=== PATIENT | male | born 1965 | race African-American/Black ===

== ENCOUNTER 2016-09-08 14:22 | Inpatient (IN) | payer SELFPAY ==
[2016-09-08] VITALS (11 sets, daily range): BP systolic 156–206; BP diastolic 77–122; PULSE 54–98; RESP 16–18; TEMP 98; O2SAT 96–100
[~2016-09-08] VITALS: Ht 180.3 cm; Wt 98.0 kg
--- NOTE | 2016-09-08 15:25 | PD ---
HPI Chief Complaint: Neuro Symptoms/ Deficits Time Seen by Provider: 15:12 Travel History International Travel<30 days: No Contact w/Intl Traveler<30days: No Traveled to known affect area: No History of Present Illness HPI 50yo M with PMH of HTN noncompliant with medication here with c/o headache and feeling unsteady with his gait for 4 days. Pt states he has had similar headache before when his blood pressure is high. Headache is bilateral, frontal and intermittent. Took acetaminophen yesterday. No photophobia. Friend states he has been more forgetful. Denies any fever, visual changes, chest pain, sob, n/v, abdominal pain, focal weakness or numbness. Pt does not remember what blood pressure medication he is suppose to be on. Denies any history of CVA. PFSH Social History Tobacco Use: No Allergies-Medications (Allergen,Severity, Reaction): Coded Allergies: No Known Allergies (Unverified , 09/08/16) Reported Meds & Prescriptions Reported Meds & Active Scripts Active No Active Prescriptions or Reported Medications Review of Systems Except as stated in HPI: all other systems reviewed are Neg Physical Exam Narrative GENERAL: 50yo M SKIN: Focused skin assessment warm/dry. HEAD: Atraumatic. Normocephalic. EYES: Pupils equal and round. No scleral icterus. No injection or drainage. ENT: No nasal bleeding or discharge. Mucous membranes pink and moist. NECK: Trachea midline. No JVD. CARDIOVASCULAR: Regular rate and rhythm. No murmur appreciated. RESPIRATORY: No accessory muscle use. Clear to auscultation. Breath sounds equal bilaterally. GASTROINTESTINAL: Abdomen soft, non-tender, nondistended. Hepatic and splenic margins not palpable. MUSCULOSKELETAL: No obvious deformities. No clubbing. No cyanosis. No edema. NEUROLOGICAL: Awake and alert. No obvious cranial nerve deficits. Motor grossly within normal limits. Normal speech. Gait is broad. PSYCHIATRIC: Appropriate mood and affect; insight and judgment normal. Data Data Last Documented VS Vital Signs Date Time Temp Pulse Resp B/P Pulse Ox O2 Delivery O2 Flow Rate FiO2 09/08/16 16:45 61 174/99 09/08/16 15:42 18 98 Room Air 09/08/16 14:[address] Brain W/O Iv Contrast(Rout) (09/08/16 ) Complete Blood Count With Diff (09/08/16 15:21) Basic Metabolic Panel (Bmp) (09/08/16 15:21) Prothrombin Time / Inr (Pt) (09/08/16 15:21) Act Partial Throm Time (Ptt) (09/08/16 15:21) Hydralazine Inj (Apresoline Inj) (09/08/16 15:30) Consult Neurosurgery (09/08/16 ) (Hub Use Only)Inp Phy Cons/Ref (09/08/16 ) Admit Order (Ed Use Only) (09/08/16 19:05) Labs Laboratory Tests Test 09/08/16 09/08/16 16:50 18:45 White Blood Count 6.8 TH/MM3 Red Blood Count 5.31 MIL/MM3 Hemoglobin 14.6 GM/DL Hematocrit 46.2 % Mean Corpuscular Volume 87.0 FL Mean Corpuscular Hemoglobin 27.5 PG Mean Corpuscular Hemoglobin 31.6 % Concent Red Cell Distribution Width 14.6 % Platelet Count 273 TH/MM3 Mean Platelet Volume 8.9 FL Neutrophils (%) (Auto) 60.6 % Lymphocytes (%) (Auto) 31.6 % Monocytes (%) (Auto) 6.1 % Eosinophils (%) (Auto) 1.3 % Basophils (%) (Auto) 0.4 % Neutrophils # (Auto) 4.1 TH/MM3 Lymphocytes # (Auto) 2.2 TH/MM3 Monocytes # (Auto) 0.4 TH/MM3 Eosinophils # (Auto) 0.1 TH/MM3 Basophils # (Auto) 0.0 TH/MM3 CBC Comment DIFF FINAL Differential Comment Prothrombin Time 10.7 SEC Prothromb Time International 1.0 RATIO Ratio Activated Partial 28.9 SEC Thromboplast Time Sodium Level 140 MEQ/L Potassium Level 3.8 MEQ/L Chloride Level 105 MEQ/L Carbon Dioxide Level 25.5 MEQ/L Anion Gap 10 MEQ/L Blood Urea Nitrogen 15 MG/DL Creatinine 1.22 MG/DL Estimat Glomerular Filtration 76 ML/MIN Rate Random Glucose 101 MG/DL Calcium Level 9.7 MG/DL [facility] Medical Decision Making Medical Screen Exam Complete: Yes Emergency Medical Condition: Yes Differential Diagnosis CVA vs. hypertensive emergency vs. ICH vs. headache related to hypertension vs. tension headache Narrative Course 50yo M with new onset unsteady gait for 4 days. Also with mild frontal headache. Friend states he has been more forgetful. Pt was given hydralazine 10 mg IV which improved blood pressure and pt was reevaluated at bedside and headache did improve. Labs reviewed, no leukocytosis. CT brain showed large well defined hyperdense mass involving the third ventricle measuring 2.3 x 1.9cm. This has a characteristic appearance of colloid cyst. I discussed with Dr. Germain who recommends admitting to catering administrative assistant and consulting him. Labs reviewed, no leukocytosis. Discussed with Dr. Packer and accepted to his service. Critical Care Narrative Aggregate critical care time was 50 minutes. Time to perform other separately billable procedures was not included in the critical care time. My time did not include minutes spent treating any other patients simultaneously or on activities that did not directly contribute to the patient's treatment. The services I provided to this patient were to treat and/or prevent clinically significant deterioration that could result in: cardiovascular collapse or . I provided critical care services requiring my management, as noted below: Chart data review, documentation time, medication orders and management, vital sign assessments/reviewing monitor data, ordering and reviewing lab tests, ordering and interpreting/reviewing x-rays and diagnostic studies, care of the patient and discussion of the patient with the admitting physicians. Diagnosis Primary Impression: Brain mass Admitting Information Admitting Physician Requests: Admit Scripts No Active Prescriptions or Reported Meds Barbara Velasquez DO Sep 08, 2016 15:25
[2016-09-08] MEDS ORDERED: hydrALAZINE HCL 20 MG/ML VIAL IV PUSH ONE (15:30)
[2016-09-08 17:24] LABS: AUTOMATED NEUTROPHIL # 4.1 TH/MM3 (1.8-7.7); BASOPHIL % 0.4 % (0.0-2.0); EOSINOPHIL # 0.1 TH/MM3 (0-0.4); EOSINOPHIL % 1.3 % (0.0-4.0); HEMATOCRIT 46.2 % (39.0-51.0); HEMO FLAGS DIFF FINAL; LYMPH % 31.6 % (9.0-44.0); LYMPHOCYTE # 2.2 TH/MM3 (1.0-4.8); MEAN CORPUSCULAR HEMOGLOBIN 27.5 PG (27.0-34.0); MEAN CORPUSCULAR HGB CONC 31.6 % (32.0-36.0); MONO % 6.1 % (0.0-8.0); NEUT % 60.6 % (16.0-70.0); PLATELET COUNT 273 TH/MM3 (150-450); RED BLOOD COUNT 5.31 MIL/MM3 (4.50-5.90); RED CELL DISTRIBUTION WIDTH 14.6 % (11.6-17.2); WHITE BLOOD COUNT 6.8 TH/MM3 (4.0-11.0)
[2016-09-08 17:29] LABS: APTT (PATIENT) 28.9 SEC (24.3-30.1); PROTHROMBIN TIME - PATIENT 10.7 SEC (9.8-11.6)
--- NOTE | 2016-09-08 17:37 | RADRPT ---
EXAM DATE/TIME: 09/08/2016 17:13 [place] COMPARISON: No previous studies available for comparison. INDICATIONS : Patient with headache, unsteady gait. RADIATION DOSE: 56.35 CTDIvol (mGy) MEDICAL HISTORY : Hypertension. SURGICAL HISTORY : None. ENCOUNTER: Initial ACUITY: 4 - 6 days PAIN SCALE: 0/10 LOCATION: cranial TECHNIQUE: Multiple contiguous axial images were obtained of the head. Using automated exposure control and adj ustment of the mA and/or kV according to patient size, radiation dose was kept as low as reasonably a chievable to obtain optimal diagnostic quality images. DICOM format image data is available electro nically for review and comparison. FINDINGS: CEREBRUM: The lateral ventricles are diffusely prominent bilaterally. There is a well-defined hyperdense mass a t the level of the third ventricle measuring 2.3 x 1.9 cm. This appears to be causing obstruction to the lateral ventricles. No extra-axial fluid collections are seen. No acute intraparenchymal hemorrha ge. No acute infarction is seen. There is evidence of transependymal edema in the white matter adjace nt to both lateral ventricles. There is effacement of the sulci along the cerebral vertex. POSTERIOR FOSSA: The cerebellum and brainstem are intact. The 4th ventricle is midline. The cerebellopontine angle i s unremarkable. EXTRACRANIAL: The visualized portion of the orbits is intact. SKULL: The calvaria is intact. No evidence of skull fracture. CONCLUSION: 1. Large well-defined hyperdense mass involving the third ventricle measuring 2.3 x 1.9 cm. This has a characteristic appearance of a colloid cyst. This is causing hydronephrosis and obstruction to the lateral ventricles bilaterally. 2. There is transependymal edema bilaterally with effacement of the sulci along both cerebral hemisph eres suggesting cerebral edema.. Roger Pratt MD on September 08, 2016 at 17:30 Board Certified Radiologist. This report was verified electronically.
[2016-09-08 19:24] LABS: BICARBONATE 25.5 MEQ/L (21.0-32.0); POTASSIUM 3.8 MEQ/L (3.5-5.1)
[2016-09-08] MEDS ORDERED: MORPHINE SULFATE 4 MG/ML INJ IV PRN (19:30)
[2016-09-08] MEDS ORDERED: LACTULOSE SYRUP 20 GM/30 ML CUP PO PRN (19:30)
[2016-09-08] MEDS ORDERED: ONDANSETRON HCL 4 MG/2 ML VIAL IV PRN (19:30)
[2016-09-08] MEDS ORDERED: MISCELLANEOUS NURSING INFORMATION XX SCH (19:30)
[2016-09-08] MEDS ORDERED: CHLORHEXIDINE GLUCONATE 2 % 1 PACK (2 CLOTHS) TOP PRN (19:30)
[2016-09-08] MEDS ORDERED: ACETAMINOPHEN/HYDROcodone 325 MG/5 MG TAB PO PRN (19:30)
[2016-09-08] MEDS ORDERED: NITROGLYCERIN 2% OINT 1 GM PACKET TOPICAL PRN (19:30)
[2016-09-08] MEDS ORDERED: MULTIVITAMIN INJ 10 ML, THIAMINE INJ 100 MG, FOLIC ACID INJ 1 MG in SODIUM CHLORID 0.9%... IV ONE (19:30)
[2016-09-08] MEDS ORDERED: RESP: ALBUTEROL 2.5 MG/3 ML NEB (PRN) INH (19:30)
[2016-09-08] MEDS ORDERED: BISACODYL 10 MG SUPP RECTAL PRN (19:30)
[2016-09-08] MEDS ORDERED: MAGNESIUM HYDROXIDE SUSP 30 ML CUP PO PRN (19:30)
[2016-09-08] MEDS ORDERED: SENNOSIDES 8.6 MG TAB PO PRN (19:30)
[2016-09-08] MEDS ORDERED: SODIUM CHLORIDE 0.9% FLUSH 10 ML FLUSH IV FLUSH PRN (19:30)
--- NOTE | 2016-09-08 19:40 | HHI.HP ---
[facility] Service Critical Care Medicine Primary Care Physician No Primary Care Physician Admission Diagnosis Intracranial mass Diagnosis: (1) Brain mass Diagnosis: Principal (2) Hypertension Diagnosis: Principal (3) Tobacco abuse Diagnosis: Principal (4) Alcohol use Diagnosis: Principal Chief Complaint: Headache, gait and balance disorder Travel History International Travel<30 Days: No Contact w/Intl Traveler <30 Da: No Traveled to Known Affected Are: No History of Present Illness This is a 50-year-old [place] male. Date of admission 09/08/2016. Past include hypertension alcohol use and tobacco use. Patient presents to [place] ED with a 3-4 day history of headaches described as bilateral frontal 6 out of 10 described as throbbing. Not associated with photophobia or vision changes. Patient is taking Tylenol without relief. He's also been having gait and balance disorder not favoring either side. Denies any falls, striking his head or syncope. When patient. [place] of soon have an elevated systolic blood pressure 204. CT head revealed 2.3 x 1.9 cm hyperdense mass the third ventricle obstructing lateral ventricles. There is also transependymal edema adjacent to both ventricles. Dr. Germain/neurosurgery was notified and recommended ICU admission with consultation. We are asked to admit. At the present time, patient is currently hemodynamically stable. Besides gait imbalance disorder which was not specifically evaluated no cranial nerve, strength or sensation deficits noted. Review of Systems Constitutional: DENIES: Fatigue, Fever, Weight gain, Weight loss Endocrine: DENIES: Polydipsia Eyes: DENIES: Blurred vision, Double Vision Ears, nose, mouth, throat: DENIES: Tinnitus, Hearing loss, Running Nose Respiratory: DENIES: Apneas Cardiovascular: DENIES: Chest pain Gastrointestinal: DENIES: Abdominal pain Genitourinary: DENIES: Urgency, Dysuria Musculoskeletal: DENIES: Joint pain Hematologic/lymphatic: DENIES: Bruising Immunologic/allergic: DENIES: Eczema Neurologic: COMPLAINS OF: Abnormal gait, Headache, DENIES: Localized weakness , Paresthesias, Seizures, Speech Problems, Tremor, Poor Balance Psychiatric: DENIES: Anxiety, Confusion Past Family Social History Allergies: Coded Allergies: No Known Allergies (Unverified , 09/08/16) Past Medical History Hypertension Past Surgical History None Reported Medications None Active Ordered Medications Reviewed in EMR Family History Father at young age unknown cause of . Mother 3 years ago of unknown cause. Social History Consumes one 12 pack of beer every week. Smokes 2-3 packs of cigarettes every week. Denies illicit drug use. Physical Exam Vital Signs Vital Signs Date Time Temp Pulse Resp B/P Pulse Ox O2 Delivery O2 Flow Rate FiO2 09/08/16 16:45 61 174/99 09/08/16 16:15 189/103 09/08/16 15:45 173/106 09/08/16 15:42 54 18 182/115 98 Room Air 09/08/16 14:23 98.0 61 16 206/113 98 Room Air Physical Exam GENERAL: 50-year-old AA male, the resting in bed in no acute distress SKIN: Warm and dry. No rash HEAD: Atraumatic. Normocephalic. EYES: Pupils equal and round about 3-4 mm bilaterally and reactive. No scleral icterus. No injection or drainage. ENT: No nasal bleeding or discharge. Mucous membranes pink and moist. NECK: Trachea midline. No JVD. CARDIOVASCULAR: Rate a cardiac, RRR. S1, S2 no S4. Without murmur RESPIRATORY: Clear to auscultation. Breath sounds equal bilaterally. GASTROINTESTINAL: Abdomen soft, non-tender, nondistended. Hepatic and splenic margins not palpable. MUSCULOSKELETAL: Extremities without noted in peripheral edema. No obvious deformities. NEUROLOGICAL: Awake and alert. No obvious cranial nerve deficits. Motor grossly within normal limits. Five out of 5 muscle strength in the arms and legs. No pronator drift. Normal speech. Normal cerebellar signs Gait was not assessed PSYCHIATRIC: Appropriate mood and affect; insight and judgment normal. Laboratory Laboratory Tests Test 09/08/16 09/08/16 16:50 18:45 White Blood Count 6.8 Red Blood Count 5.31 Hemoglobin 14.6 Hematocrit 46.2 Mean Corpuscular Volume 87.0 Mean Corpuscular Hemoglobin 27.5 Mean Corpuscular Hemoglobin 31.6 Concent Red Cell Distribution Width 14.6 Platelet Count 273 Mean Platelet Volume 8.9 Neutrophils (%) (Auto) 60.6 Lymphocytes (%) (Auto) 31.6 Monocytes (%) (Auto) 6.1 Eosinophils (%) (Auto) 1.3 Basophils (%) (Auto) 0.4 Neutrophils # (Auto) 4.1 Lymphocytes # (Auto) 2.2 Monocytes # (Auto) 0.4 Eosinophils # (Auto) 0.1 Basophils # (Auto) 0.0 CBC Comment DIFF FINAL Differential Comment Prothrombin Time 10.7 Prothromb Time International 1.0 Ratio Activated Partial 28.9 Thromboplast Time Sodium Level 140 Potassium Level 3.8 Chloride Level 105 Carbon Dioxide Level 25.5 Anion Gap 10 Blood Urea Nitrogen 15 Creatinine 1.22 Estimat Glomerular Filtration 76 Rate Random Glucose 101 Calcium Level 9.7 Result Diagram: 09/08/16 1650 09/08/16 1845 Imaging Last [address] 09/08/16 0000 Signed Impressions: Service Date/Time: Thursday, September 08, 2016 17:13 - CONCLUSION: 1. Large well-defined hyperdense mass involving the third ventricle measuring 2.3 x 1.9 cm. This has a characteristic appearance of a colloid cyst. This is causing hydronephrosis and obstruction to the lateral ventricles bilaterally. 2. There is transependymal edema bilaterally with effacement of the sulci along both cerebral hemispheres suggesting cerebral edema.. Roger Pratt MD Assessment and Plan Assessment and Plan Neuro/Psych: 2.3 x 1.9 cm hypodense mass at the third ventricle causing hydrocephalus Headache CT head 09/08 revealed a 2.3 x 1.8 cm hyperdense mass at the third ventricle causing obstruction of the lateral ventricles/hydronephrosis. There is also transependymal edema adjacent to both ventricles. Dr. Germain/neurosurgery will see in consultation Acetaminophen for fever White Cloud/morphine for pain management Placed on Keppra 500 mg IV twice a day seizure prophylaxis We'll place on Decadron overnight secondary to brain edema 4 mill grams IV every 6 hours CV: Hypertension EKG and chest x-ray pending As needed labetalol/hydralazine/Nitropaste to keep systolic blood pressure less than 160. Resp: Nasal cannula to maintain saturations greater than equal to 92% Incentive spirometry while awake GI: Patient made nothing by mouth after midnight Protonix for GI prophylaxis Bowel regimen with Viridiana-Colace twice a day initiated : No indication for Parra catheter Endo: Sliding scale insulin if indicated to maintain euglycemia Renal: BMP is currently pending Accurate I's and O's Monitor urine output Heme: CBC within normal limits. Follow-up on coags ID: Monitor for infection MSK: PT evaluate and treat FEN: Replace electrolytes as clinically indicated Access - Utilize peripheral IV. Central line if indicated Prophylaxis - GI - Protonix - DVT - SCD/holding pharmacological prophylaxis in light of brain mass Level III admission Code Status Full code Discussed Condition With Patient. Dr. Velasquez/ED physician. Care plan discussed all questions answered. Problem Qualifiers (1) Hypertension: Qualified Code: I10 - Essential hypertension Melvin Packer MD Sep 08, 2016 19:40
[2016-09-08] MEDS ORDERED: DEXTROSE 50% IN WATER 50 ML VIAL(D50) IV PRN (19:45)
[2016-09-08] MEDS ORDERED: GLUCAGON 1 MG/ML VIAL OTHER PRN (19:45)
[2016-09-08] MEDS: SODIUM CHLOR 0.9% 1000 ML INJ 1,000 ML IV SCH (19:58)
[2016-09-08] MEDS: CLEVIDIPINE INJ 50 ML IV SCH (20:43)
[2016-09-08] MEDS: DOCUSATE SODIUM 50 MG/SENNA 8.6 MG TAB PO SCH (21:00)
[2016-09-08] MEDS: INSULIN NovoLIN REGULAR SUPPLEMENTAL SCALE SQ SCH (21:00)
[2016-09-08] MEDS: SODIUM CHLORIDE 0.9% FLUSH 10 ML FLUSH IV FLUSH SCH (21:00)
--- NOTE | 2016-09-08 21:29 | PD.CONS ---
[facility] Service neurosurg Consult Requested By dr Velasquez Reason for Consult Colloid cyst Primary Care Physician No Primary Care Physician History of Present Illness This is a 50-year-old [place] male with history of arterial hypertension alcohol use and tobacco use. He presents to [facility] with a 3-4 day history of headaches. He describes his headaches as bilateral frontal, 6 out of 10 described as throbbing. Not associated with photophobia or vision changes. he is taking Tylenol without relief. He's also been having gait and balance disorder not favoring either side. Denies any falls, striking his head or syncope. He had an elevated systolic blood pressure 204. CT head revealed 2.3 x 1.9 cm hyperdense mass the third ventricle obstructing lateral ventricles. Neurosurgical consultation was requested Review of Systems Constitutional: DENIES: Fatigue, Fever, Weight gain, Weight loss Endocrine: DENIES: Polydipsia Eyes: DENIES: Blurred vision, Double Vision Ears, nose, mouth, throat: DENIES: Tinnitus, Hearing loss, Running Nose Respiratory: DENIES: Apneas Cardiovascular: DENIES: Chest pain Gastrointestinal: DENIES: Abdominal pain Genitourinary: DENIES: Urgency, Dysuria Musculoskeletal: DENIES: Joint pain Hematologic/lymphatic: DENIES: Bruising Immunologic/allergic: DENIES: Eczema Neurologic: COMPLAINS OF: Abnormal gait, Headache, DENIES: Localized weakness , Paresthesias, Seizures, Speech Problems, Tremor, Poor Balance Psychiatric: DENIES: Anxiety, Confusion Past Family Social History Allergies: Coded Allergies: No Known Allergies (Unverified , 09/08/16) Past Medical History Hypertension Past Surgical History None Reported Medications None Active Ordered Medications Current Medications Hydralazine HCl 10 mg 10 mg ONCE ONCE IV PUSH Last administered on 09/08/16 15 :43; Start 09/08/16 at 15:30; Stop 09/08/16 at 15:31; Status DC Sodium Chloride (NS 1000 ml Inj) 1,000 ml @ 84 mls/hr [id number] IV Last administered on 09/09/16 06:05; Start 09/08/16 at 19:21 Sodium Chloride (NS Flush) 2 ml UNSCH PRN IV FLUSH FLUSH AFTER USING IV ACCESS ; Start 09/08/16 at 19:30 Sodium Chloride (NS Flush) 2 ml BID IV FLUSH Last administered on 09/09/16 08: 29; Start 09/08/16 at 21:00 Acetaminophen (Tylenol) 650 mg Q6H PRN PO PAIN 1-2 AND/OR FEVER >101F; Start at 19:30 Acetaminophen/ Hydrocodone Bitart ([place] 5-325 Mg) 1 tab Q4H PRN PO PAIN SCALE 3 TO 5; Start 09/08/16 at 19:30 Morphine Sulfate (Morphine Inj) 2 mg Q2H PRN IV PAIN SCALE 6 TO 10;IF NO PO; Start 09/08/16 at 19:30 Pantoprazole Sodium (Protonix Inj) 40 mg DAILY IV Last administered on 08:29; Start 09/09/16 at 09:00 Ondansetron HCl (Zofran Inj) 4 mg Q6H PRN IV NAUSEA OR VOMITING Last administered on 09/08/16 21:30; Start 09/08/16 at 19:30 Albuterol Sulfate (Albuterol Neb) 2.5 mg Q2HR NEB PRN INH SOB/WHEEZING; Start 09/08/16 at 19:30 Miscellaneous Information 1 [id number] XX ; Start 09/08/16 at 19:30 Chlorhexidine Gluconate (Chlorhexidine 2% Cloth) 3 pack Taper DAILY@04 TOP Last administered on 09/09/16 03:48; Start 09/09/16 at 04:00; Stop 09/05/17 at 03: 59 Chlorhexidine Gluconate (Chlorhexidine 2% Cloth) 3 pack UNSCH PRN TOP HYGIENIC CARE; Start 09/08/16 at 19:30 Senna/Docusate Sodium (Viridiana-Colace) 1 tab BID PO ; Start 09/08/16 at 21:00 Magnesium Hydroxide (Milk Of Magnesia Liq) 30 ml Q12H PRN PO MILD - MODERATE CONSTIPATION; Start 09/08/16 at 19:30 Sennosides (Senokot) 17.2 mg Q12H PRN PO MODERATE - SEVERE CONSTIPATION; Start 09/08/16 at 19:30 Bisacodyl (Dulcolax Supp) 10 mg DAILY PRN RECTAL SEVERE CONSITIPATION; Start at 19:30 Lactulose (Lactulose Liq) 30 ml DAILY PRN PO SEVERE CONSITIPATION; Start at 19:30 Labetalol HCl (Trandate Inj) 10 mg Q1HR PRN IV PUSH SBP>160, DBP>90, HR>65 Last administered on 09/08/16 22:17; Start 09/08/16 at 19:30 Hydralazine HCl (Apresoline Inj) 10 mg Q1HR PRN IV PUSH SBP>160, DBP>90 Last administered on 09/08/16 23:09; Start 09/08/16 at 19:30 Nitroglycerin 2 inch 2 inch Q6HR PRN TOPICAL SBP>160, DBP>90 Last administered on 09/08/16 22:38; Start 09/08/16 at 19:30 Clevidipine 50 ml @ 0 mls/hr TITRATE IV Last administered on 09/09/16 10:41; Start 09/08/16 at 19:30 Levetriacetam 500 mg/Sodium Chloride 105 ml @ 420 mls/hr Q12HR IV Last administered on 09/09/16 08:29; Start 09/08/16 at 21:00 Multivitamins 10 ml/Thiamine HCl 100 mg/Folic Acid 1 mg/Sodium Chloride 511.2 ml @ 125 mls/hr ONCE ONCE IV Last administered on 09/08/16 19:58; Start at 19:30; Stop 09/08/16 at 23:35; Status DC Multivitamins/ Thiamine HCl/ Folic Acid/Sodium Chloride (Mvi-12 Inj/ Thiamine Inj/ Folvite Inj/NS 500 ml Inj) 511.2 ml @ 125 mls/hr DAILY IV Last administered on 09/09/16 08:29; Start 09/09/16 at 09:00; Stop 09/12/16 at 08:59 Dexamethasone Sodium Phosphate (Decadron Inj) 4 mg Q6HR IV PUSH Last administered on 09/09/16 11:49; Start 09/09/16 at 00:00 Dextrose (D50w (Vial) Inj) 50 ml UNSCH PRN IV HYPOGLYCEMIA-SEE COMMENTS; Start 09/08/16 at 19:45 Glucagon (Glucagon Inj) 1 mg UNSCH PRN OTHER HYPOGLYCEMIA-SEE COMMENTS; Start 09/08/16 at 19:45 Insulin Human Regular (NovoLIN R SUPPLEMENTAL SCALE) 1 ACHS SLIDING SCALE SQ ; Start 09/08/16 at 21:00 Enalaprilat (Vasotec Inj) 1.25 mg Q6H PRN IV PUSH SBP>160, DBP>90; Start at 23:30 Clonidine (Catapres) 0.1 mg Q6H PRN PO SBP>160, DBP>90, HR>65; Start 09/08/16 at 23:30 Lisinopril (Prinivil) 10 mg ONCE ONCE PO Last administered on 09/09/16t 10:41; Start 09/09/16 at 10:30; Stop 09/09/16 at 10:34; Status DC Lisinopril 20 mg 20 mg DAILY PO ; Start 09/10/16 at 09:00 Sodium Chloride 1,000 ml @ 100 mls/hr Q10H IV ; Start 09/09/16 at 23:00 Cefazolin Sodium/ Dextrose 50 ml @ 150 mls/hr ONCE ONCE IV ; Start 09/10/16 at 06:00; Stop 09/10/16 at 06:19 Vancomycin HCl/ Sodium Chloride (Vancomycin Inj/ NS 250 ml Inj) 250 ml @ 250 mls/hr ONCE ONCE IV ; Start 09/10/16 at 06:00; Stop 09/10/16 at 06:59 Chlorhexidine Gluconate (Hibiclens 4% Top Soln) 1 applic HS TOP ; Start 09/09/16 at 21:00; Stop 09/10/16 at 21:01 Family History Father at young age unknown cause of . Mother 3 years ago of unknown cause. Social History Consumes one 12 pack of beer every week. Smokes 2-3 packs of cigarettes every week. Denies illicit drug use. Physical Exam Vital Signs Vital Signs Date Time Temp Pulse Resp B/P Pulse Ox O2 Delivery O2 Flow Rate FiO2 09/08/16 21:11 69 18 197/110 96 09/08/16 20:44 62 18 188/122 96 09/08/16 20:00 73 18 188/115 100 09/08/16 16:45 61 174/99 09/08/16 16:15 189/103 09/08/16 15:45 173/106 09/08/16 15:42 54 18 182/115 98 Room Air 09/08/16 14:23 98.0 61 16 206/113 98 Room Air Physical Exam The patient is alert, awake and oriented to time, place and person. Short term memory Cranial nerve examination: pupils to be equal, round and reactive to light. Extra-ocular movements are intact. Facial motor and sensory function are normal and symmetrical. Gross hearing appears intact. Sternocleidomastoid and trapezius muscles are symmetrical. Other cranial nerves are intact. Neck is soft and supple with a good range of motion without pain. Muscle strength is normal in all muscle groups of both upper and lower extremities. Sensory examination is intact to light touch and pin prick in both the upper and lower extremities. Deep tendon reflexes are symmetrical in both upper and lower extremities. There is a bilateral plantar flexion response. Cerebellar examination is unremarkable, without deficits. Laboratory Laboratory Tests Test 09/08/16 09/08/16 16:50 18:45 White Blood Count 6.8 Red Blood Count 5.31 Hemoglobin 14.6 Hematocrit 46.2 Mean Corpuscular Volume 87.0 Mean Corpuscular Hemoglobin 27.5 Mean Corpuscular Hemoglobin 31.6 Concent Red Cell Distribution Width 14.6 Platelet Count 273 Mean Platelet Volume 8.9 Neutrophils (%) (Auto) 60.6 Lymphocytes (%) (Auto) 31.6 Monocytes (%) (Auto) 6.1 Eosinophils (%) (Auto) 1.3 Basophils (%) (Auto) 0.4 Neutrophils # (Auto) 4.1 Lymphocytes # (Auto) 2.2 Monocytes # (Auto) 0.4 Eosinophils # (Auto) 0.1 Basophils # (Auto) 0.0 CBC Comment DIFF FINAL Differential Comment Prothrombin Time 10.7 Prothromb Time International 1.0 Ratio Activated Partial 28.9 Thromboplast Time Sodium Level 140 Potassium Level 3.8 Chloride Level 105 Carbon Dioxide Level 25.5 Anion Gap 10 Blood Urea Nitrogen 15 Creatinine 1.22 Estimat Glomerular Filtration 76 Rate Random Glucose 101 Calcium Level 9.7 Result Diagram: 09/08/16 1650 09/08/16 1845 Imaging Last Impressions Head CT 09/08/16 0000 Signed Impressions: Service Date/Time: Thursday, September 08, 2016 17:13 - CONCLUSION: 1. Large well-defined hyperdense mass involving the third ventricle measuring 2.3 x 1.9 cm. This has a characteristic appearance of a colloid cyst. This is causing hydronephrosis and obstruction to the lateral ventricles bilaterally. 2. There is transependymal edema bilaterally with effacement of the sulci along both cerebral hemispheres suggesting cerebral edema.. Roger Pratt MD Attending Statement Neuro checks in a serial fashion. A follow-up MRI of the brain will be obtained. he will need a surgical decompression Pulmonary. aggressive pulmonary toilette, nasotracheal suction, and breathing treatments with nebulizers. PT and OT evaluation Nutrition. NPO Renal. monitor closely urine output, BUN and creatinine Endocrine. Monitor serial Acu checks and SSI as needed in detail ID monitor for signs of infection Protonix for stress ulcer prophylaxis Maurice hose and SCD's for DVT prophylaxis Dave eGrmain MD Sep 08, 2016 21:29 Maurice hose and SCD's for DVT prophylaxis Dave Germain MD Sep 08, 2016 21:29
[2016-09-08] MEDS: hydrALAZINE HCL 20 MG/ML VIAL IV PUSH PRN ×2 (21:49→23:09)
[2016-09-08] MEDS: LABETALOL HCL 100 MG/20 ML VIAL IV PUSH PRN (22:17)
[2016-09-08] MEDS: levETIRAcetam INJ 500 MG in SODIUM CHLORIDE 0.9% INJ 100 ML IV SCH (22:18)
[2016-09-08] MEDS ORDERED: ENALAPRILAT 1.25 MG/ML VIAL IV PUSH PRN (23:30)
[2016-09-09] VITALS (14 sets, daily range): BP systolic 133–143; BP diastolic 59–83; PULSE 49–96; RESP 12–22; TEMP 98.1–98.6; O2SAT 95–98
[2016-09-09] MEDS: CLEVIDIPINE INJ 50 ML IV SCH ×3 (00:20→10:41)
[2016-09-09] MEDS: DEXAMETHASONE SOD PHOS 4 MG/ML VIAL IV PUSH SCH ×5 (00:21→23:21)
[2016-09-09] MEDS: CHLORHEXIDINE GLUCONATE 2 % 1 PACK (2 CLOTHS) TOP SCH (03:48)
[2016-09-09 05:17] LABS: AUTOMATED NEUTROPHIL # 9.1 TH/MM3 (1.8-7.7); BASOPHIL % 0.1 % (0.0-2.0); HEMO FLAGS DIFF FINAL; LYMPH % 9.4 % (9.0-44.0); MEAN CORPUSCULAR HEMOGLOBIN 27.8 PG (27.0-34.0); MEAN CORPUSCULAR HGB CONC 32.3 % (32.0-36.0); MONO % 1.3 % (0.0-8.0); NEUT % 89.2 % (16.0-70.0); PLATELET COUNT 275 TH/MM3 (150-450); RED BLOOD COUNT 5.23 MIL/MM3 (4.50-5.90); RED CELL DISTRIBUTION WIDTH 14.4 % (11.6-17.2); WHITE BLOOD COUNT 10.2 TH/MM3 (4.0-11.0)
--- NOTE | 2016-09-09 05:18 | RADRPT ---
EXAM DATE/TIME: 09/09/2016 04:47 [facility] COMPARISON: No previous studies available for comparison. INDICATIONS : Short breath. MEDICAL HISTORY : Hypertension. SURGICAL HISTORY : None. ENCOUNTER: Initial ACUITY: 2 days PAIN SCORE: Non-responsive. LOCATION: Bilateral chest FINDINGS: A single view of the chest demonstrates the lungs to be symmetrically aerated without evidence of mas s, infiltrate or effusion. The cardiomediastinal contours are unremarkable. Osseous structures are intact. CONCLUSION: No acute disease. Ronal Porter MD on September 09, 2016 at 5:15 Board Certified Radiologist. This report was verified electronically.
[2016-09-09 05:42] LABS: APTT (PATIENT) 29.7 SEC (24.3-30.1)
[2016-09-09 05:44] LABS: ALT (GPT) 18 U/L (12-78); ANION GAP 9 MEQ/L (5-15); AST (GOT) 11 U/L (15-37); BICARBONATE 24.4 MEQ/L (21.0-32.0); BLOOD UREA NITROGEN 13 MG/DL (7-18); CHLORIDE 107 MEQ/L (98-107); GLOMERULAR FILTRATION RATE 99 ML/MIN (>89); POTASSIUM 3.8 MEQ/L (3.5-5.1); SODIUM (NA) 140 MEQ/L (136-145)
[2016-09-09 05:46] LABS: ALKALINE PHOSPHATASE 78 U/L (45-117); TOTAL BILIRUBIN ADULT 0.4 MG/DL (0.2-1.0)
[2016-09-09] MEDS: INSULIN NovoLIN REGULAR SUPPLEMENTAL SCALE SQ SCH ×4 (05:46→21:00)
[2016-09-09] MEDS: SODIUM CHLOR 0.9% 1000 ML INJ 1,000 ML IV SCH ×3 (06:05→22:28)
[2016-09-09] MEDS: SODIUM CHLORIDE 0.9% FLUSH 10 ML FLUSH IV FLUSH SCH ×2 (08:29→21:00)
[2016-09-09] MEDS: PANTOPRAZOLE SODIUM 40 MG VIAL IV SCH (08:29)
[2016-09-09] MEDS: MULTIVITAMIN INJ 10 ML, THIAMINE INJ 100 MG, FOLIC ACID INJ 1 MG in SODIUM CHLORID 0.9%... IV SCH (08:29)
[2016-09-09] MEDS: levETIRAcetam INJ 500 MG in SODIUM CHLORIDE 0.9% INJ 100 ML IV SCH ×2 (08:29→21:00)
[2016-09-09] MEDS: DOCUSATE SODIUM 50 MG/SENNA 8.6 MG TAB PO SCH ×2 (09:00→21:33)
--- NOTE | 2016-09-09 10:10 | HHI.CCPN ---
Subjective Remarks/Hospital Course 09/08: This is a 50-year-old [place] male. Date of admission 09/08/2016. Past include hypertension alcohol use and tobacco use. Patient presents to [facility] with a 3-4 day history of headaches described as bilateral frontal 6 out of 10 described as throbbing. Not associated with photophobia or vision changes. Patient is taking Tylenol without relief. He's also been having gait and balance disorder not favoring either side. Denies any falls, striking his head or syncope. When patient. [facility] of soon have an elevated systolic blood pressure 204. CT head revealed 2.3 x 1.9 cm hyperdense mass the third ventricle obstructing lateral ventricles. There is also transependymal edema adjacent to both ventricles. Dr. Germain/neurosurgery was notified and recommended ICU admission with consultation. We are asked to admit. Patient hemodynamically stable. Besides gait imbalance disorder which was not specifically evaluated no cranial nerve, strength or sensation deficits noted. 09/09: Resting in bed comfortably not in any acute distress. Complaining of some headache currently. Denies any chest pain or shortness of breath currently. Awaiting cardiac catheterization with Dr. Moseley. Objective Vital Signs Date Time Temp Pulse Resp B/P Pulse Ox O2 Delivery O2 Flow Rate FiO2 09/09/16 08:00 98.1 78 16 143/59 97 09/09/16 07:57 21 09/09/16 07:00 Room Air Result Diagram: 09/09/16 0425 09/09/16 0425 Imaging Last [address] 09/08/16 0000 Signed Impressions: Service Date/Time: Thursday, September 08, 2016 17:13 - CONCLUSION: 1. Large well-defined hyperdense mass involving the third ventricle measuring 2.3 x 1.9 cm. This has a characteristic appearance of a colloid cyst. This is causing hydronephrosis and obstruction to the lateral ventricles bilaterally. 2. There is transependymal edema bilaterally with effacement of the sulci along both cerebral hemispheres suggesting cerebral edema.. Roger Pratt MD Objective Remarks GENERAL: 50-year-old AA male, the resting in bed in no acute distress SKIN: Warm and dry. No rash HEAD: Atraumatic. Normocephalic. EYES: Pupils equal and round about 3-4 mm bilaterally and reactive. No scleral icterus. No injection or drainage. ENT: No nasal bleeding or discharge. Mucous membranes pink and moist. NECK: Trachea midline. No JVD. CARDIOVASCULAR: Rate a cardiac, RRR. S1, S2 no S4. Without murmur RESPIRATORY: Clear to auscultation. Breath sounds equal bilaterally. GASTROINTESTINAL: Abdomen soft, non-tender, nondistended. Hepatic and splenic margins not palpable. MUSCULOSKELETAL: Extremities without noted in peripheral edema. No obvious deformities. NEUROLOGICAL: Awake and alert. No obvious cranial nerve deficits. Motor grossly within normal limits. Five out of 5 muscle strength in the arms and legs. No pronator drift. Normal speech. Normal cerebellar signs Gait was not assessed PSYCHIATRIC: Appropriate mood and affect; insight and judgment normal. A/P Assessment and Plan Neuro/Psych: 2.3 x 1.9 cm hypodense mass at the third ventricle causing hydrocephalus Headache CT head 09/08 revealed a 2.3 x 1.8 cm hyperdense mass at the third ventricle causing obstruction of the lateral ventricles/hydronephrosis. There is also transependymal edema adjacent to both ventricles. Dr. Germain/neurosurgery consulted Acetaminophen for fever [place]/morphine for pain management Placed on Keppra 500 mg IV twice a day seizure prophylaxis Decadron overnight secondary to brain edema 4 mill grams IV every 6 hours CV: Hypertension As needed labetalol/hydralazine/Nitropaste to keep systolic blood pressure less than 160. Cleviprex gtt. Added lisinopril 10 mg today and then 20 mg daily. Resp: Nasal cannula to maintain saturations greater than equal to 92% Incentive spirometry while awake GI: Patient made nothing by mouth after midnight Protonix for GI prophylaxis Bowel regimen with Viridiana-Colace twice a day initiated : No indication for Parra catheter Endo: Sliding scale insulin if indicated to maintain euglycemia Renal: Monitor and replete electrolytes, follow BUN/creatinine Accurate I's and O's Monitor urine output Heme: CBC within normal limits. Follow-up on coags ID: Monitor for infection MSK: PT evaluate and treat FEN: Replace electrolytes as clinically indicated Access - Utilize peripheral IV. Central line if indicated Prophylaxis - GI - Protonix - DVT - SCD/holding pharmacological prophylaxis in light of brain mass Felipe Lundberg MD Sep 09, 2016 10:10
[2016-09-09] MEDS ORDERED: LISINOPRIL 10 MG TAB PO ONE (10:30)
--- NOTE | 2016-09-09 15:07 | HHI.NSPN ---
Note Status Status: Progress Note Interval History Diagnosis Intraventricular cyst Interval History This is a 50-year-old [place] male with history of arterial hypertension alcohol use and tobacco use. He presents to [facility] with a 3-4 day history of headaches. He describes his headaches as bilateral frontal, 6 out of 10 described as throbbing. Not associated with photophobia or vision changes. he is taking Tylenol without relief. He's also been having gait and balance disorder not favoring either side. Denies any falls, striking his head or syncope. He had an elevated systolic blood pressure 204. CT head revealed 2.3 x 1.9 cm hyperdense mass the third ventricle obstructing lateral ventricles. Neurosurgical consultation was requested 09/09/16. He has been neurologically stable overnight. Continues to suffer of severe headaches, nauseas, and blurred vision Labs, Micro, & Vital Signs Results Date Time Temp Pulse Resp B/P Pulse Ox O2 Delivery O2 Flow Rate FiO2 09/09/16 12:00 98.5 68 13 139/64 95 09/09/16 12:00 68 09/09/16 10:00 63 09/09/16 08:00 98.1 78 16 143/59 97 09/09/16 08:00 75 09/09/16 07:57 98 21 09/09/16 07:00 98 Room Air 09/09/16 06:00 80 09/09/16 04:00 98.6 69 18 139/67 97 09/09/16 04:00 76 09/09/16 02:00 70 09/09/16 00:00 98.6 96 12 134/69 98 09/09/16 00:00 93 09/08/16 22:00 98 09/08/16 21:49 65 18 192/106 97 09/08/16 21:29 85 18 156/77 98 09/08/16 21:11 69 18 197/110 96 09/08/16 20:44 62 18 188/122 96 09/08/16 20:00 73 18 188/115 100 09/08/16 16:45 61 174/99 09/08/16 16:15 189/103 09/08/16 15:45 173/106 09/08/16 15:42 54 18 182/115 98 Room Air 09/09/16 07:00 Intake Total 1606 ml Output Total 1100 ml Balance 506 ml Constitutional Vital Signs Date Time Temp Pulse Resp B/P Pulse Ox O2 Delivery O2 Flow Rate FiO2 09/09/16 12:00 98.5 68 13 139/64 95 09/09/16 12:00 68 09/09/16 10:00 63 09/09/16 08:00 98.1 78 16 143/59 97 09/09/16 08:00 75 09/09/16 07:57 98 21 09/09/16 07:00 98 Room Air 09/09/16 06:00 80 09/09/16 04:00 98.6 69 18 139/67 97 09/09/16 04:00 76 09/09/16 02:00 70 09/09/16 00:00 98.6 96 12 134/69 98 09/09/16 00:00 93 09/08/16 22:00 98 09/08/16 21:49 65 18 192/106 97 09/08/16 21:29 85 18 156/77 98 09/08/16 21:11 69 18 197/110 96 09/08/16 20:44 62 18 188/122 96 09/08/16 20:00 73 18 188/115 100 09/08/16 16:45 61 174/99 09/08/16 16:15 189/103 09/08/16 15:45 173/106 09/08/16 15:42 54 18 182/115 98 Room Air 09/09/16 07:00 Intake Total 1606 ml Output Total 1100 ml Balance 506 ml Review of Systems/Exam Exam Mr Scott is alert, awake and oriented to time, place and person. Short term memory Cranial nerve examination: pupils to be equal, round and reactive to light. Extra-ocular movements are intact. Facial motor and sensory function are normal and symmetrical. Gross hearing appears intact. Sternocleidomastoid and trapezius muscles are symmetrical. Other cranial nerves are intact. Neck is soft and supple with a good range of motion without pain. Muscle strength is normal in all muscle groups of both upper and lower extremities. Sensory examination is intact to light touch and pin prick in both the upper and lower extremities. Deep tendon reflexes are symmetrical in both upper and lower extremities. There is a bilateral plantar flexion response. Cerebellar examination is unremarkable Medications Current Medications Current Medications Hydralazine HCl 10 mg 10 mg ONCE ONCE IV PUSH Last administered on 09/08/16 15 :43; Start 09/08/16 at 15:30; Stop 09/08/16 at 15:31; Status DC Sodium Chloride (NS 1000 ml Inj) 1,000 ml @ 84 mls/hr [id number] IV Last administered on 09/09/16 19:11; Start 09/08/16 at 19:21; Stop 09/13/16 at 10:47; Status DC Sodium Chloride (NS Flush) 2 ml UNSCH PRN IV FLUSH FLUSH AFTER USING IV ACCESS ; Start 09/08/16 at 19:30; Stop 09/13/16 at 10:54; Status DC Sodium Chloride (NS Flush) 2 ml BID IV FLUSH Last administered on 09/13/16 07: 59; Start 09/08/16 at 21:00; Stop 09/13/16 at 10:54; Status DC Acetaminophen (Tylenol) 650 mg Q6H PRN PO PAIN 1-2 AND/OR FEVER >101F Last administered on 09/16/16 13:08; Start 09/08/16 at 19:30 Acetaminophen/ Hydrocodone Bitart ([place] 5-325 Mg) 1 tab Q4H PRN PO PAIN SCALE 3 TO 5; Start 09/08/16 at 19:30; Stop 09/10/16 at 11:25; Status DC Morphine Sulfate (Morphine Inj) 2 mg Q2H PRN IV PAIN SCALE 6 TO 10;IF NO PO; Start 09/08/16 at 19:30; Stop 09/10/16 at 11:46; Status DC Pantoprazole Sodium (Protonix Inj) 40 mg DAILY IV Last administered on 08:13; Start 09/09/16 at 09:00; Stop 09/15/16 at 14:35; Status DC Ondansetron HCl (Zofran Inj) 4 mg Q6H PRN IV NAUSEA OR VOMITING Last administered on 09/08/16 21:30; Start 09/08/16 at 19:30; Stop 09/10/16 at 13:55; Status DC Albuterol Sulfate (Albuterol Neb) 2.5 mg Q2HR NEB PRN INH SOB/WHEEZING; Start 09/08/16 at 19:30 Miscellaneous Information 1 [id number] XX ; Start 09/08/16 at 19:30 Chlorhexidine Gluconate (Chlorhexidine 2% Cloth) Taper DAILY@04 TOP Last administered on 09/14/16 04:00; Start 09/09/16 at 04:00; Stop 09/15/16 at 14:35 ; Status DC Chlorhexidine Gluconate (Chlorhexidine 2% Cloth) 3 pack UNSCH PRN TOP HYGIENIC CARE; Start 09/08/16 at 19:30; Stop 09/15/16 at 14:35; Status DC Senna/Docusate Sodium (Viridiana-Colace) 1 tab BID PO Last administered on 08:24; Start 09/08/16 at 21:00 Magnesium Hydroxide (Milk Of Magnesia Liq) 30 ml Q12H PRN PO MILD - MODERATE CONSTIPATION; Start 09/08/16 at 19:30 Sennosides (Senokot) 17.2 mg Q12H PRN PO MODERATE - SEVERE CONSTIPATION; Start 09/08/16 at 19:30; Stop 09/20/16 at 09:00 Bisacodyl (Dulcolax Supp) 10 mg DAILY PRN RECTAL SEVERE CONSITIPATION; Start at 19:30 Lactulose (Lactulose Liq) 30 ml DAILY PRN PO SEVERE CONSITIPATION; Start at 19:30 Labetalol HCl (Trandate Inj) 10 mg Q1HR PRN IV PUSH SBP>160, DBP>90, HR>65 Last administered on 09/11/16 23:06; Start 09/08/16 at 19:30; Stop 09/15/16 at 14 :35; Status DC Hydralazine HCl (Apresoline Inj) 10 mg Q1HR PRN IV PUSH SBP>160, DBP>90 Last administered on 09/12/16 17:06; Start 09/08/16 at 19:30; Stop 09/15/16 at 14:35; Status DC Nitroglycerin 2 inch 2 inch Q6HR PRN TOPICAL SBP>160, DBP>90 Last administered on 09/08/16 22:38; Start 09/08/16 at 19:30 Clevidipine 50 ml @ 0 mls/hr TITRATE IV Last administered on 09/09/16 10:41; Start 09/08/16 at 19:30; Stop 09/15/16 at 14:35; Status DC Levetriacetam 500 mg/Sodium Chloride 105 ml @ 420 mls/hr Q12HR IV Last administered on 09/15/16 08:13; Start 09/08/16 at 21:00; Stop 09/15/16 at 14:28 ; Status DC Multivitamins 10 ml/Thiamine HCl 100 mg/Folic Acid 1 mg/Sodium Chloride 511.2 ml @ 125 mls/hr ONCE ONCE IV Last administered on 09/08/16 19:58; Start at 19:30; Stop 09/08/16 at 23:35; Status DC Multivitamins/ Thiamine HCl/ Folic Acid/Sodium Chloride (Mvi-12 Inj/ Thiamine Inj/ Folvite Inj/NS 500 ml Inj) 511.2 ml @ 125 mls/hr DAILY IV Last administered on 09/11/16 11:45; Start 09/09/16 at 09:00; Stop 09/12/16 at 08:59; Status DC Dexamethasone Sodium Phosphate (Decadron Inj) 4 mg Q6HR IV PUSH Last administered on 09/12/16 06:01; Start 09/09/16 at 00:00; Stop 09/12/16 at 07:40; Status DC Dextrose (D50w (Vial) Inj) 50 ml UNSCH PRN IV HYPOGLYCEMIA-SEE COMMENTS; Start 09/08/16 at 19:45 Glucagon (Glucagon Inj) 1 mg UNSCH PRN OTHER HYPOGLYCEMIA-SEE COMMENTS; Start 09/08/16 at 19:45 Insulin Human Regular (NovoLIN R SUPPLEMENTAL SCALE) 1 ACHS SLIDING SCALE SQ Last administered on 09/13/16 21:13; Start 09/08/16 at 21:00; Stop 09/16/16 at 10:28; Status DC Enalaprilat (Vasotec Inj) 1.25 mg Q6H PRN IV PUSH SBP>160, DBP>90 Last administered on 09/13/16 05:13; Start 09/08/16 at 23:30 Clonidine (Catapres) 0.1 mg Q6H PRN PO SBP>160, DBP>90, HR>65 Last administered on 09/13/16 17:29; Start 09/08/16 at 23:30 Lisinopril (Prinivil) 10 mg ONCE ONCE PO Last administered on 09/09/16 10:41; Start 09/09/16 at 10:30; Stop 09/09/16 at 10:34; Status DC Lisinopril 20 mg 20 mg DAILY PO Last administered on 09/19/16 08:24; Start 09/10/16 at 09:00 Sodium Chloride 1,000 ml @ 100 mls/hr Q10H IV Last administered on 09/09/16 22 :28; Start 09/09/16 at 23:00; Stop 09/13/16 at 10:49; Status DC Cefazolin Sodium/ Dextrose 50 ml @ 150 mls/hr ONCE ONCE IV Last administered on 09/10/16 08:55; Start 09/10/16 at 06:00; Stop 09/10/16 at 06:19; Status DC Vancomycin HCl/ Sodium Chloride (Vancomycin Inj/ NS 250 ml Inj) 250 ml @ 250 mls/hr ONCE ONCE IV ; Start 09/10/16 at 06:00; Stop 09/10/16 at 06:59; Status DC Chlorhexidine Gluconate (Hibiclens 4% Top Soln) 1 applic HS TOP Last administered on 09/10/16 00:00; Start 09/09/16 at 21:00; Stop 09/10/16 at 21:01; Status DC Gadodiamide (Omniscan Pf Inj) 19 ml STK-MED ONCE IV Last administered on 15:20; Start 09/09/16 at 15:20; Stop 09/09/16 at 15:21; Status DC Microfibriller Collagen Hemostat (Avitene Bandage) 1 bandage STK-MED ONCE .ROUTE ; Start 09/10/16 at 07:01; Stop 09/10/16 at 07:02; Status DC Thrombin (Thrombin Top Soln) 5,000 units STK-MED ONCE .ROUTE ; Start 09/10/16 at 07:02; Stop 09/10/16 at 07:03; Status DC Gelatin (Gelfoam 100 Top) 1 foam STK-MED ONCE .ROUTE ; Start 09/10/16 at 07:02; Stop 09/10/16 at 07:03; Status DC Bacitracin (Baciguent Oint) 15 applic STK-MED ONCE .ROUTE ; Start 09/10/16 at 07: 02; Stop 09/10/16 at 07:03; Status DC Gentamicin Sulfate (Gentamicin Inj) 240 mg STK-MED ONCE .ROUTE ; Start 09/10/16 at 07:02; Stop 09/10/16 at 07:03; Status DC Lidocaine/ Epinephrine (Xylocaine-Epi 1%-1:100,000 Inj) 40 ml STK-MED ONCE .ROUTE ; Start 09/10/16 at 07:02; Stop 09/10/16 at 07:03; Status DC Acetaminophen (Ofirmev Inj) 1,000 mg STK-MED ONCE IV ; Start 09/10/16 at 08:03; Stop 09/10/16 at 08:04; Status DC Artificial Tears (Lacrilube Opht Oint) 3.5 applic STK-MED ONCE .ROUTE ; Start at 08:03; Stop 09/10/16 at 08:04; Status DC Midazolam HCl (Versed Inj) 2 mg STK-MED ONCE .ROUTE ; Start 09/10/16 at 08:03; Stop 09/10/16 at 08:04; Status DC Fentanyl Citrate (fentaNYL INJ) 500 mcg STK-MED ONCE .ROUTE ; Start 09/10/16 at 08:03; Stop 09/10/16 at 08:04; Status DC Levetriacetam (Keppra Inj) 1,000 mg STK-MED ONCE IV ; Start 09/10/16 at 08:03; Stop 09/10/16 at 08:04; Status DC Famotidine 20 mg 20 mg STK-MED ONCE .ROUTE ; Start 09/10/16 at 08:03; Stop at 08:04; Status DC Mannitol (Mannitol Inj) 50 ml @ As Directed STK-MED ONCE .ROUTE ; Start 09/10/16 at 08:03; Stop 09/10/16 at 08:04; Status DC Vancomycin HCl (Vancomycin Inj) 1,000 mg STK-MED ONCE .ROUTE Last administered on 09/10/16t 08:49; Start 09/10/16 at 08:08; Stop 09/10/16 at 08:09; Status DC Thrombin 5000 units 5,000 units STK-MED ONCE .ROUTE ; Start 09/10/16 at 08:59; Stop 09/10/16 at 09:00; Status DC Potassium Chloride/Sodium Chloride (NS + KCl 20 Meq Inj) 1,000 ml @ 100 mls/hr Q10H IV Last administered on 09/12/16 11:50; Start 09/10/16 at 09:50; Stop 09/13 at 19:03; Status DC IV Flush (NS Flush) 2 ml UNSCH PRN IVF FLUSH AFTER USING IV ACCESS; Start at 10:00 IV Flush 2 ml 2 ml BID IVF Last administered on 09/18/16 21:59; Start 09/10/16 at 21:00 Cefazolin Sodium/ Dextrose 50 ml @ 100 mls/hr Q8H IV Last administered on 09:00; Start 09/10/16 at 17:00; Stop 09/11/16 at 09:29; Status DC Levetriacetam/ Sodium Chloride (Keppra Inj/NS Inj) 105 ml @ 400 mls/hr Q12H IV ; Start 09/10/16 at 10:00; Stop 09/10/16 at 11:24; Status DC Bisacodyl (Dulcolax Supp) 10 mg DAILY PRN SC CONSTIPATION; Start 09/10/16 at 10: 00; Stop 09/10/16 at 11:43; Status DC Docusate Sodium (Colace) 100 mg BID PO Last administered on 09/19/16 08:24; Start 09/10/16 at 21:00 Pantoprazole Sodium (Protonix) 40 mg DAILY PO Last administered on 09/19/16 08 :25; Start 09/11/16 at 09:00 Pantoprazole Sodium (Protonix Inj) 40 mg DAILY IVP ; Start 09/11/16 at 09:00; Stop 09/12/16 at 07:48; Status DC Ondansetron HCl (Zofran Inj) 4 mg Q6H PRN IV NAUSEA OR VOMITING; Start 09/10/16 at 10:00 Calcium Gluconate 1 gm 1 gm UNSCH PRN IV SEE LABEL COMMENTS; Start 09/10/16 at 10:00; Stop 09/15/16 at 14:35; Status DC Potassium Chloride 100 ml @ 50 mls/hr UNSCH PRN IV POTASSIUM LESS THAN 4; Start 09/10/16 at 10:00; Stop 09/15/16 at 14:35; Status DC Magnesium Sulfate/ Sodium Chloride (Magnesium Sulfate Inj/NS Inj) 108 ml @ 108 mls/hr UNSCH PRN IV MAGNESIUM LESS THAN 2; Start 09/10/16 at 10:00; Stop at 14:35; Status DC Acetaminophen/ Hydrocodone Bitart ([place] 10-325 Mg) 1 tab Q4H PRN PO PAIN SCALE 1 TO 5 Last administered on 09/18/16 08:58; Start 09/10/16 at 10:00 Acetaminophen/ Hydrocodone Bitart ([place] 10-325 Mg) 2 tab Q4H PRN PO PAIN SCALE 6 TO 10 Last administered on 09/17/16 04:48; Start 09/10/16 at 10:00 Morphine Sulfate (Morphine Inj) 2 mg Q2H PRN IV PUSH PAIN SCALE 1 TO 6; Start 09/10/16 at 10:00; Stop 09/15/16 at 14:35; Status DC Morphine Sulfate (Morphine Inj) 4 mg Q2H PRN IV PUSH PAIN SCALE 7 TO 10 Last administered on 09/10/16 22:03; Start 09/10/16 at 10:00; Stop 09/15/16 at 14:35; Status DC Acetaminophen (Tylenol) 650 mg Q4H PRN PO TEMPERATURE > 101.5 F; Start 09/10/16 at 10:00; Stop 09/10/16 at 11:42; Status DC Bacitracin (Baciguent Oint) 15 applic STK-MED ONCE TOP Last administered on 09/10 10:16; Start 09/10/16 at 10:16; Stop 09/10/16 at 10:32; Status DC Microfibriller Collagen Hemostat (Avitene Bandage) 1 bandage STK-MED ONCE TOPICAL Last administered on 09/10/16 10:16; Start 09/10/16 at 10:16; Stop at 10:32; Status DC Gentamicin Sulfate (Gentamicin Inj) 240 mg STK-MED ONCE IRRIGATION Last administered on 09/10/16 10:16; Start 09/10/16 at 10:16; Stop 09/10/16 at 10:40; Status DC Gelatin (Gelfoam 100 Top) 1 foam STK-MED ONCE TOP Last administered on 10:16; Start 09/10/16 at 10:16; Stop 09/10/16 at 10:40; Status DC Thrombin (Thrombin Top Soln) 10,000 units STK-MED ONCE TOP Last administered on 09/10/16 10:16; Start 09/10/16 at 10:16; Stop 09/10/16 at 10:40; Status DC Lidocaine/ Epinephrine (Xylocaine-Epi 1%-1:100,000 Inj) 30 ml STK-MED ONCE INFIL Last administered on 09/10/16 10:16; Start 09/10/16 at 10:16; Stop at 10:40; Status DC Miscellaneous Information ALL NURSING DEPARTME... UNSCH PRN .XX SEE LABEL COMMENTS; Start 09/10/16 at 12:51; Stop 09/11/16 at 12:50; Status DC Nicardipine HCl/ Sodium Chloride (Cardene Inj/NS 250 ml Inj) 260 ml @ 0 mls/hr TITRATE IV ; Start 09/10/16 at 14:00; Stop 09/15/16 at 14:35; Status DC Amlodipine Besylate (Norvasc) 10 mg DAILY PO Last administered on 09/19/16 08: 24; Start 09/12/16 at 08:00 Dexamethasone Sodium Phosphate (Decadron Inj) 4 mg Q12H IV PUSH Last administered on 09/15/16 05:33; Start 09/12/16 at 18:00; Stop 09/15/16 at 14:35 ; Status DC Hydrochlorothiazide (Hydrodiuril) 25 mg DAILY PO Last administered on 08:24; Start 09/12/16 at 09:00 Levetriacetam (Keppra) 500 mg Q12HR PO Last administered on 09/19/16 08:24; Start 09/15/16 at 21:00 Polyethylene Glycol (Miralax) 17 gm DAILY PO Last administered on 09/19/16 08: 23; Start 09/16/16 at 10:30 Lactulose (Lactulose Liq) 30 ml ONCE ONCE PO Last administered on 09/17/16 10 :28; Start 09/17/16 at 09:45; Stop 09/17/16 at 09:46; Status DC Bisacodyl (Dulcolax Supp) 10 mg ONCE ONCE RECTAL ; Start 09/17/16 at 09:45; Stop 09/17/16 at 09:46; Status DC Sennosides (Senokot) 17.2 mg DAILY PO Last administered on 09/19/16 08:24; Start 09/18/16 at 13:00 Magnesium Hydroxide (Milk Of Magnesia Liq) 30 ml ONCE ONCE PO Last administered on 09/18/16 13:45; Start 09/18/16 at 13:15; Stop 09/18/16 at 13:16 ; Status DC Sodium Biphosphate/ Sodium Phosphate (Fleets Enema (Adult)) 133 ml ONCE ONCE RECTAL ; Start 09/18/16 at 13:15; Stop 09/18/16 at 13:16; Status DC Lactulose (Lactulose Liq) 30 ml ONCE ONCE PO Last administered on 09/18/16 13 :44; Start 09/18/16 at 13:15; Stop 09/18/16 at 13:16; Status DC Medical Decision Making MDM Remarks Brain MRI 09/09/16 0000 Signed Impressions: Service Date/Time: September 15:09 - CONCLUSION: There is a bilobed mass is centered at the foramen of Frausto measuring up to 3.1 cm. 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 These findings were discussed with Dr. Germain. Jori Franklin MD Attending Statement Continue neuro checks in a serial fashion. MRI of the brain was reviewed. For a surgical decompression tomorrow. We have discussed the details including the [id number] details of the surgical procedure, its indications, alternatives, risks, and potential complications. Risks and potential complications include, but are not limited to, infection, blood loss, CSF leak, partial or complete loss of sight in one or both eyes, paresis, paralysis, permanent pain or difficulty swallowing, loss of bowel or bladder function, complications from anesthesia, blood clot, stroke, myocardial infarction, or even . Pulmonary. Continue aggressive pulmonary toilette, nasotracheal suction, and breathing treatments with nebulizers. PT and OT evaluation Nutrition. NPO after midnoght Renal. Continue monitor closely urine output, BUN and creatinine Endocrine. Continue Monitor serial Acu checks and SSI as needed in detail ID Continue monitor for signs of infection Continue Protonix for stress ulcer prophylaxis Continue Maurice hose and SCD's for DVT prophylaxis Dave Germain MD Sep 09, 2016 15:07
[2016-09-09] MEDS ORDERED: GADODIAMIDE PF 287 MG/ML 20 ML VIAL (for RAD MRI) IV ONE (15:20)
--- NOTE | 2016-09-09 16:10 | RADRPT ---
EXAM DATE/TIME: 09/09/2016 15:09 [facility] COMPARISON: CT BRAIN W/O CONTRAST, September 08, 2016, 17:13. INDICATIONS : Mass. Unsteady gait with cephalgia. CONTRAST: 19 cc Omniscan (gadodiamide) IV MEDICAL HISTORY : Hypertension. SURGICAL HISTORY : Rt knee surgery ENCOUNTER: Subsequent ACUITY: 2 day PAIN SCORE: 3/10 LOCATION: cranial TECHNIQUE: Multiplanar, multisequence MRI of the brain was performed both prior to and following the administrat ion of paramagnetic contrast. FINDINGS: There is a predominantly T1 hyperintense mass centered at the foramen of Frausto the pillars of the fo rnix and draped around the lesion. It is mildly hyperintense on T2 imaging and demonstrates no restri cted diffusion. It measures approximately 2.7 x 1.8 x 3.1 cm and has a bilobed shape. A central porti on is low signal on T1 and T2 imaging and demonstrates susceptibility artifact. The mass inferiorly e xtends into the suprasellar space. Given the marked increased T1 signal prior to contrast it is diffi cult to tell if any portion of the lesion is enhancing. It is obstructing the ventricular system with dilated lateral ventricles and severe transependymal fluid migration. The mass contains a low T1 sig nal intensity structure coursing through which likely represent the thalamostriate vein. The posterior fossa structures demonstrate no abnormality. Orbits and visualized paranasal sinuses de monstrate no acute finding. No midline shift, herniation, or acute infarct is identified. CONCLUSION: There is a bilobed mass is centered at the foramen of Frausto measuring up to 3.1 cm. 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 It is causing obstructive hydrocephalus with dilated lateral v entricles and severe transependymal fluid migration. These findings were discussed with Dr. Germain. Jori Franklin MD on September 09, 2016 at 15:42 Board Certified Radiologist. This report was verified electronically.
--- NOTE | 2016-09-09 17:40 | EKG ---
Date Performed: 09/08/2016 Time Performed: 19:57:21 PTAGE: 50 years EKG: Sinus rhythm WITH SINUS ARRHYTHMIA MARKED LEFT AXIS DEVIATION NONSPECIFIC T-WAVE ABNORMALITY ABNORMAL ECG NO PREVIOUS TRACING DOCTOR: Chikis Ramirez Interpretating Date/Time 09/09/2016 17:36:11
[2016-09-09] MEDS: cloNIDine HCL 0.1 MG TAB PO PRN (21:33)
[2016-09-10] VITALS (12 sets, daily range): BP systolic 122–157; BP diastolic 60–87; PULSE 44–95; RESP 15–22; TEMP 98–98.6; O2SAT 95–100
[2016-09-10] MEDS: CHLORHEXIDINE GLUCONATE 2 % 1 PACK (2 CLOTHS) TOP SCH (04:00)
[2016-09-10] MEDS: DEXAMETHASONE SOD PHOS 4 MG/ML VIAL IV PUSH SCH ×3 (05:10→17:23)
[2016-09-10] MEDS ORDERED: VANCOMYCIN INJ 1,000 MG in SODIUM CHLOR 0.9% 250 ML INJ 250 ML IV ONE (06:00)
[2016-09-10] MEDS ORDERED: ceFAZolin 2 GM PREMIX 50 ML IV ONE (06:00)
[2016-09-10] MEDS: INSULIN NovoLIN REGULAR SUPPLEMENTAL SCALE SQ SCH ×4 (06:39→21:00)
[2016-09-10] MEDS ORDERED: MICROFIBRILLAR COLLAGEN HEMOSTAT 70 X 35 MM BANDAGE ONE (07:01)
[2016-09-10] MEDS ORDERED: GELFOAM SIZE 100 ONE (07:02)
[2016-09-10] MEDS ORDERED: BACITRACIN TOP OINT 15 GM TUBE ONE (07:02)
[2016-09-10] MEDS ORDERED: GENTAMICIN SULFATE 80 MG/2 ML VIAL ONE (07:02)
[2016-09-10] MEDS ORDERED: LIDOCAINE 1%/EPINEPHrine 1:100,000 SOLN 20 ML VIAL ONE (07:02)
[2016-09-10] MEDS ORDERED: THROMBIN (TOPICAL) 5,000 UNIT VIAL ONE ×2 (07:02→08:59)
[2016-09-10] MEDS: SODIUM CHLOR 0.9% 1000 ML INJ 1,000 ML IV SCH ×2 (07:06→09:00)
[2016-09-10] MEDS ORDERED: fentaNYL CITRATE 250 MCG/5 ML AMP ONE (08:03)
[2016-09-10] MEDS ORDERED: ARTIFICIAL TEARS OPTH OINT 3.5 APPLIC/3.5 GM TUBO ONE (08:03)
[2016-09-10] MEDS ORDERED: MIDAZOLAM HCL 2 MG/2 ML VIAL ONE (08:03)
[2016-09-10] MEDS ORDERED: levETIRAcetam 500 MG/5 ML VIAL IV ONE (08:03)
[2016-09-10] MEDS ORDERED: MANNITOL INJ 50 ML ONE (08:03)
[2016-09-10] MEDS ORDERED: ACETAMINOPHEN 1000 MG/100 ML VIAL IV ONE (08:03)
[2016-09-10] MEDS ORDERED: FAMOTIDINE 20 MG/2 ML VIAL ONE (08:03)
[2016-09-10] MEDS ORDERED: VANCOMYCIN HCL 1000 MG VIAL ONE (08:08)
[2016-09-10] MEDS: LISINOPRIL 20 MG TAB PO SCH (09:00)
[2016-09-10] MEDS: DOCUSATE SODIUM 50 MG/SENNA 8.6 MG TAB PO SCH ×2 (09:00→20:36)
[2016-09-10] MEDS: levETIRAcetam INJ 500 MG in SODIUM CHLORIDE 0.9% INJ 100 ML IV SCH ×2 (09:00→20:34)
[2016-09-10] MEDS: MULTIVITAMIN INJ 10 ML, THIAMINE INJ 100 MG, FOLIC ACID INJ 1 MG in SODIUM CHLORID 0.9%... IV SCH (09:00)
[2016-09-10] MEDS: SODIUM CHLORIDE 0.9% FLUSH 10 ML FLUSH IV FLUSH SCH ×2 (09:00→20:35)
--- NOTE | 2016-09-10 09:41 | HHI.CCPN ---
Subjective Remarks/Hospital Course 09/08: This is a 50-year-old [place] male. Date of admission 09/08/2016. Past include hypertension alcohol use and tobacco use. Patient presents to [place] ED with a 3-4 day history of headaches described as bilateral frontal 6 out of 10 described as throbbing. Not associated with photophobia or vision changes. Patient is taking Tylenol without relief. He's also been having gait and balance disorder not favoring either side. Denies any falls, striking his head or syncope. When patient. [place] of soon have an elevated systolic blood pressure 204. CT head revealed 2.3 x 1.9 cm hyperdense mass the third ventricle obstructing lateral ventricles. There is also transependymal edema adjacent to both ventricles. Dr. Germain/neurosurgery was notified and recommended ICU admission with consultation. We are asked to admit. Patient hemodynamically stable. Besides gait imbalance disorder which was not specifically evaluated no cranial nerve, strength or sensation deficits noted. 09/09: Resting in bed comfortably not in any acute distress. Complaining of some headache currently. Denies any chest pain or shortness of breath currently. 09/10: Resting comfortably in bed. Awaiting neurosurgery today by Dr. Germain for colloid cyst causing hydrocephalus Objective Vital Signs Date Time Temp Pulse Resp B/P Pulse Ox O2 Delivery O2 Flow Rate FiO2 09/10/16 07:30 98.2 50 22 139/87 99 09/10/16 07:00 Room Air 09/09/16 07:57 21 Intake and Output 09/09/16 09/09/16 09/10/16 08:00 16:00 00:00 Intake Total 1606 ml 1501 ml 1171 ml Output Total 1100 ml 450 ml 300 ml Balance 506 ml 1051 ml 871 ml Result Diagram: 09/09/16 0425 09/09/16 0425 Imaging Last [address] 09/08/16 0000 Signed Impressions: Service Date/Time: Thursday, September 08, 2016 17:13 - CONCLUSION: 1. Large well-defined hyperdense mass involving the third ventricle measuring 2.3 x 1.9 cm. This has a characteristic appearance of a colloid cyst. This is causing hydronephrosis and obstruction to the lateral ventricles bilaterally. 2. There is transependymal edema bilaterally with effacement of the sulci along both cerebral hemispheres suggesting cerebral edema.. Roger Pratt MD Objective Remarks GENERAL: 50-year-old AA male, the resting in bed in no acute distress SKIN: Warm and dry. No rash HEAD: Atraumatic. Normocephalic. EYES: Pupils equal and round about 3-4 mm bilaterally and reactive. No scleral icterus. No injection or drainage. ENT: No nasal bleeding or discharge. Mucous membranes pink and moist. NECK: Trachea midline. No JVD. CARDIOVASCULAR: Rate a cardiac, RRR. S1, S2 no S4. Without murmur RESPIRATORY: Clear to auscultation. Breath sounds equal bilaterally. GASTROINTESTINAL: Abdomen soft, non-tender, nondistended. Hepatic and splenic margins not palpable. MUSCULOSKELETAL: Extremities without noted in peripheral edema. No obvious deformities. NEUROLOGICAL: Awake and alert. No obvious cranial nerve deficits. Motor grossly within normal limits. Five out of 5 muscle strength in the arms and legs. No pronator drift. Normal speech. Normal cerebellar signs Gait was not assessed PSYCHIATRIC: Appropriate mood and affect; insight and judgment normal. A/P Assessment and Plan Neuro/Psych: 2.3 x 1.9 cm hypodense mass at the third ventricle causing hydrocephalus Headache CT head 09/08 revealed a 2.3 x 1.8 cm hyperdense mass at the third ventricle causing obstruction of the lateral ventricles/hydronephrosis. There is also transependymal edema adjacent to both ventricles. Dr. Germain/neurosurgery following and patient underwent MRI brain which confirmed diagnosis and is scheduled for neurosurgery for hydrocephalus secondary to colloid cyst on 09/10 Acetaminophen for fever [place]/morphine for pain management Placed on Keppra 500 mg IV twice a day seizure prophylaxis Decadron secondary to brain edema 4 mill grams IV every 6 hours CV: Hypertension As needed labetalol/hydralazine/Nitropaste to keep systolic blood pressure less than 160. Off Cleviprex gtt. Continue lisinopril 20 mg daily. Resp: Nasal cannula to maintain saturations greater than equal to 92% Incentive spirometry while awake GI: Patient made nothing by mouth after midnight Protonix for GI prophylaxis Bowel regimen with Viridiana-Colace twice a day initiated : No indication for Parra catheter Endo: Sliding scale insulin if indicated to maintain euglycemia Renal: Monitor and replete electrolytes, follow BUN/creatinine Accurate I's and O's Monitor urine output Heme: CBC within normal limits. Follow-up on coags ID: Monitor for infection MSK: PT evaluate and treat FEN: Replace electrolytes as clinically indicated Access - Utilize peripheral IV. Central line if indicated Prophylaxis - GI - Protonix - DVT - SCD/holding pharmacological prophylaxis in light of brain mass Discussed with Dr. Germain. Felipe Lundberg MD Sep 10, 2016 09:41
[2016-09-10] MEDS ORDERED: SODIUM CHLORIDE 0.9% FLUSH 5 ML FLUSH IVF PRN (10:00)
[2016-09-10] MEDS ORDERED: BISACODYL 10 MG SUPP PR PRN (10:00)
[2016-09-10] MEDS ORDERED: levETIRAcetam INJ 500 MG in SODIUM CHLORIDE 0.9% INJ 100 ML IV SCH (10:00)
[2016-09-10] MEDS ORDERED: MORPHINE SULFATE 4 MG/ML INJ IV PUSH PRN ×2 (10:00)
[2016-09-10] MEDS ORDERED: ONDANSETRON HCL 4 MG/2 ML VIAL IV PRN (10:00)
[2016-09-10] MEDS ORDERED: ACETAMINOPHEN 325 MG TAB PO PRN (10:00)
[2016-09-10] MEDS ORDERED: CALCIUM GLUCONATE 10% 1 GM/10 ML VIAL IV PRN (10:00)
[2016-09-10] MEDS ORDERED: POTASSIUM CHLOR 20 MEQ PREMIX 100 ML IV PRN (10:00)
[2016-09-10] MEDS ORDERED: MAGNESIUM SULFATE INJ 4 GM in SODIUM CHLORIDE 0.9% INJ 100 ML IV PRN (10:00)
[2016-09-10] MEDS ORDERED: GELFOAM SIZE 100 TOP ONE (10:16)
[2016-09-10] MEDS ORDERED: GENTAMICIN SULFATE 80 MG/2 ML VIAL IRRIGATION ONE (10:16)
[2016-09-10] MEDS ORDERED: LIDOCAINE 1%/EPINEPHrine 1:100,000 SOLN 30 ML VIAL INFIL ONE (10:16)
[2016-09-10] MEDS ORDERED: MICROFIBRILLAR COLLAGEN HEMOSTAT 70 X 35 MM BANDAGE TOPICAL ONE (10:16)
[2016-09-10] MEDS ORDERED: BACITRACIN TOP OINT 15 GM TUBE TOP ONE (10:16)
[2016-09-10] MEDS ORDERED: THROMBIN (TOPICAL) 5,000 UNIT VIAL TOP ONE (10:16)
[2016-09-10] MEDS ORDERED: NEOSTIGMINE 3 MG/3 ML SYR IV ONE (12:00)
[2016-09-10] MEDS ORDERED: LACTATED RINGER'S 1000 ML INJ 1,000 ML IV ONE (12:00)
[2016-09-10] MEDS ORDERED: SODIUM CHLOR 0.9% 250 ML INJ 500 ML IV ONE (12:00)
[2016-09-10] MEDS ORDERED: ONDANSETRON HCL 4 MG/2 ML VIAL IV PUSH ONE (12:00)
[2016-09-10] MEDS ORDERED: ePHEDrine/NS 25 MG/5 ML SYR IV ONE (12:00)
[2016-09-10] MEDS ORDERED: SODIUM CHLORID 0.9% 500 ML INJ 500 ML IV ONE (12:00)
[2016-09-10] MEDS ORDERED: PROPOFOL 200 MG/20 ML AMP IV ONE (12:00)
[2016-09-10] MEDS ORDERED: DO NOT ADM ANY ANTICOAGULANT DRUGS PRN (12:51)
[2016-09-10] MEDS: NS + KCL 20 MEQ INJ 1,000 ML IV SCH ×2 (13:00→20:35)
--- NOTE | 2016-09-10 13:30 | RADRPT ---
EXAM DATE/TIME: 09/10/2016 13:10 [facility] COMPARISON: CHEST SINGLE AP, September 09, 2016, 4:47. INDICATIONS : Central line placement. Post-op surgery for intracranial mass. MEDICAL HISTORY : Hypertension. SURGICAL HISTORY : Right knee surgery. ENCOUNTER: Initial ACUITY: 1 day PAIN SCORE: Non-responsive. LOCATION: Bilateral chest FINDINGS: A single view of the chest demonstrates the lungs to be symmetrically aerated without evidence of mas s, infiltrate or effusion. A right central line has been placed. There is no pneumothorax. The centra l line appears to be in good position. The cardiomediastinal contours are unremarkable. Osseous str uctures are intact. CONCLUSION: 1. Right central line in good position. No pneumothorax. 2. The lungs are grossly clear. Roger Pratt MD on September 10, 2016 at 13:29 Board Certified Radiologist. This report was verified electronically.
--- NOTE | 2016-09-10 13:43 | PD.OP ---
Operative Report Date of Surgery: Sep 10, 2016 Preoperative Diagnosis: Third Ventricle colloid Cyst Postoperative Diagnosis: Third Ventricle colloid Cyst Procedure: Stereotactic, image-guided craniotomy, resection of colloid cyst Anesthesia: general Surgeon: Dave Germain Cutting Inspector(s): Dona Sauceda Operation and Findings: INDICATIONS FOR THE PROCEDURE The patient is a 50-year-old male who presented with dizziness and a very unsteady gait. 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 Surgical resection was indicated. I have discussed with him the [id number] details of the procedure, its indications, alternatives, risks and potential complications with the patient including but not limited to the risk of infection, hemorrhage, paralysis, stroke, heart attack, even vegetative state or even the possibility of . The patient fully understands. All her questions were answered. No guarantees were given. She voiced requesting the procedure and provided informed consent. She has been offered the alternative of not having aggressive management. DETAILS OF THE SURGICAL PROCEDURE Prior to the surgery the patient underwent MRI of the brain according to the stereotactic protocol. The information was transferred to the workstation located in the operative suite. Preoperative registration was performed. The patient was then transferred to the operating room. After induction of general anesthesia, endotracheal intubation was done. A Parra catheter, bilateral MARGARET hose, sequential compression devices were placed and kept throughout the procedure. The patient was positioned supine on a 30/80 table over gel mattress with her head in rigid fixation using the Weiner refrigerating engineer head. All pressure points were carefully padded with egg crate mattress. The eyes were tapped shut after ointment was applied by the anesthesiologist to prevent corneal abrasion. A Marito hugger was placed over the exposed lower body to maintain control of the core body temperature. The electrophysiological team placed the needles and electrodes in their proper location and baseline SSEP's evoked potentials were registered. The rigid reference body was attached to the refrigerating engineer head and intraoperative registration was performed with a laser. The right frontotemporal parietal area was shaved, prepped and draped in the usual sterile fashion. A standard curvilinear pterional incision was outlined on the right scalp and infiltrated with 1% lidocaine with epinephrine. The skin incision was made with a #10 blade down to the level of the periosteum in the frontoparietal region and to the temporalis fascia in the temporal region. Keshawn clips were applied to the scalp. Using a Bovie, the temporalis fascia and muscle were incised and a subperiosteal dissection was performed reflecting the scalp flap anteriorly. The scalp was covered with a moist sponge and held in position using fish hooks. TPS drill was brought to the field and a bur hole was made in the right fontotemporal region using the craniotome attachment. Then, using the footplate attachment, a frontal craniotomy flap was elevated. The dura was bulging, with mass effect due to the underlying tumor. The tumor was identified with the brainlab, and the dura was opened with a 15 blade and metzembaun sissors and retracted with 4-0 Neurolon sutures attached to the fascia. At this point of the procedure the operative microscope was draped in the usual sterile fashion and brought to the field. The rest of the surgical procedure was performed using microdissection technique with the exception of the closure. Under the operative microscope a small corticotomy was performed and the right frontal ventricle was accessed ressected. The Foramen of Monro was rapidly identified. The brain Lab was used thorough the procedure. The third ventricle was accessed and resection of the colloid cyst was carried out using microsurgical dissection technique, with the micro-bipolar forceps, micro- suction, and gentle irrigation. The specimen was sent to the lab for histological analysis. A gross total resection of the cyst was achieved. Appropriate hemostasis was then secured using the bipolar competitive intelligence analyst. A ventriculostomy catheter was left in place into the third ventricle. Then the incision was irrigated with saline solution. The dural edges were tacked to the bone. The craniotomy flap was then repositioned and secured in place using Titanium plates and screws. A 7 millimeter Alon-Dior drain was then left in the subgaleal space and externalized through a separate stab incision. The incision was then closed in layers. 0 Vicryl in interrupted sutures were used to close the temporalis fascia. The galea was closed with interrupted 3- 0 Vicryl. Norden were applied to the skin. The drain was secured with a 3-0 nylon. At the end of the procedure, the sponge, needle and instrument counts were all correct. Estimated blood loss was less than 110 cc. No blood transfusion was given. No intraoperative complications occurred. The patient received prophylactic antibiotics. The patient was then transferred to the recovery room in stable condition. COMPLICATIONS None Dave Germain MD Sep 10, 2016 13:43
[2016-09-10] MEDS ORDERED: niCARdipine 25 MG/NS 250 ML Vial2Bag or IV room IV SCH ×2 (14:00)
--- NOTE | 2016-09-10 14:20 | OTSOAPIP ---
TIME SESSION COMPLETED: PM TREATMENT TIME: 0 MINS. CHART REVIEWED. PATIENT WAS ADMITTED WITH COMPLAINT OF HEADACHES AND UNSTEADY GAIT. BRAIN MRI REVEALED THIRD VENTRICLE COLLOID CYST WITH SEVERE HYDROCEPHALUS PATIENT WAS NOT AVAILABLE SECONDARY TO BEING IN SURGERY TO UNDERGO STEREOTACTIC, IMAGE-GUIDED CRANIOTOMY, RESECTION OF COLLOID CYST PLAN: WILL SEE PATIENT NEXT TREATMENT DAY INTERDISCIPLINARY COMMUNICATION: SPOKE WITH NURSING. Therapist: ANTONY HEATON/Liss Signature on file
[2016-09-10] MEDS: PANTOPRAZOLE SODIUM 40 MG VIAL IV SCH (14:42)
[2016-09-10] MEDS: ceFAZolin 2 GM PREMIX 50 ML IV SCH (17:23)
[2016-09-10] MEDS: hydrALAZINE HCL 20 MG/ML VIAL IV PUSH PRN (17:24)
[2016-09-10] MEDS: SODIUM CHLORIDE 0.9% FLUSH 5 ML FLUSH IVF SCH (20:35)
[2016-09-10] MEDS: CHLORHEXIDINE GLUCONATE 4% SOLN 120 ML BTL TOP SCH ×2 (20:36)
[2016-09-10] MEDS: DOCUSATE SODIUM 100 MG CAP PO SCH (20:36)
[2016-09-11] VITALS (11 sets, daily range): BP systolic 130–158; BP diastolic 70–85; PULSE 48–84; RESP 12–19; TEMP 98.3–98.7; O2SAT 96–100
[2016-09-11] MEDS: ceFAZolin 2 GM PREMIX 50 ML IV SCH ×2 (01:03→09:00)
[2016-09-11] MEDS: DEXAMETHASONE SOD PHOS 4 MG/ML VIAL IV PUSH SCH ×5 (01:03→23:06)
[2016-09-11] MEDS: CHLORHEXIDINE GLUCONATE 2 % 1 PACK (2 CLOTHS) TOP SCH (04:00)
[2016-09-11] MEDS: SODIUM CHLOR 0.9% 1000 ML INJ 1,000 ML IV SCH ×4 (05:00→18:51)
[2016-09-11 05:08] LABS: BASOPHIL % 0.1 % (0.0-2.0); HEMATOCRIT 38.6 % (39.0-51.0); HEMO FLAGS DIFF FINAL; LYMPH % 5.8 % (9.0-44.0); LYMPHOCYTE # 0.9 TH/MM3 (1.0-4.8); MEAN CELL VOLUME 85.5 FL (80.0-100.0); MEAN CORPUSCULAR HEMOGLOBIN 27.8 PG (27.0-34.0); MEAN CORPUSCULAR HGB CONC 32.5 % (32.0-36.0); MONO % 5.2 % (0.0-8.0); NEUT % 88.9 % (16.0-70.0); PLATELET COUNT 285 TH/MM3 (150-450); RED BLOOD COUNT 4.52 MIL/MM3 (4.50-5.90); RED CELL DISTRIBUTION WIDTH 14.3 % (11.6-17.2); WHITE BLOOD COUNT 15.7 TH/MM3 (4.0-11.0)
[2016-09-11] MEDS: NS + KCL 20 MEQ INJ 1,000 ML IV SCH ×2 (05:35→15:50)
[2016-09-11 05:55] LABS: BICARBONATE 28.5 MEQ/L (21.0-32.0); POTASSIUM 3.9 MEQ/L (3.5-5.1)
--- NOTE | 2016-09-11 06:17 | RADRPT ---
EXAM DATE/TIME: 09/11/2016 05:49 [facility] COMPARISON: MRI BRAIN W & W/O CONTRAST, September 09, 2016, 15:09. CT BRAIN W/O CONTRAST, September 08, 2016, 17:13. INDICATIONS : Follow up cyst. RADIATION DOSE: 44.68 CTDIvol (mGy) MEDICAL HISTORY : Hypertension. SURGICAL HISTORY : Drain. ENCOUNTER: Subsequent ACUITY: 2 days PAIN SCALE: Non-responsive LOCATION: Bilateral cranial TECHNIQUE: Multiple contiguous axial images were obtained of the head. Using automated exposure control and adj ustment of the mA and/or kV according to patient size, radiation dose was kept as low as reasonably a chievable to obtain optimal diagnostic quality images. DICOM format image data is available electro nically for review and comparison. FINDINGS: CEREBRUM: Postsurgical changes with a right frontoparietal craniotomy. There also appears to be interval resect ion of the previously identified colloid cyst in the region of the third ventricle. Surgical drain is identified in the bed of the resection. Small amount of subdural blood and air subjacent to the righ t-sided craniotomy. No midline shift. Small amount of intraventricular blood bilaterally. Periventric ular areas of diminished attenuation are unchanged and may represent transependymal flow of CSF. POSTERIOR FOSSA: The cerebellum and brainstem are intact. The 4th ventricle is midline. The cerebellopontine angle i s unremarkable. EXTRACRANIAL: The visualized portion of the orbits is intact. SKULL: Right-sided craniotomy. No evidence of skull fracture. CONCLUSION: 1. Interval resection of the previously identified colloid cyst in the region of the third ventricle. Associated postsurgical changes with right craniotomy, pneumocephalus and a small amount of subdural blood subjacent to the craniotomy site. 2. WESLEY type drain in the surgical bed of resection. No midline shift 3. Stable periventricular areas of diminished attenuation characteristic of transependymal flow of CS F. Jonathan Farley MD on September 11, 2016 at 6:11 Board Certified Radiologist. This report was verified electronically.
[2016-09-11] MEDS: INSULIN NovoLIN REGULAR SUPPLEMENTAL SCALE SQ SCH ×4 (06:36→21:00)
[2016-09-11] MEDS: PANTOPRAZOLE SODIUM 40 MG VIAL IV SCH (09:00)
[2016-09-11] MEDS ORDERED: PANTOPRAZOLE SODIUM 40 MG VIAL IVP SCH (09:00)
[2016-09-11] MEDS: levETIRAcetam INJ 500 MG in SODIUM CHLORIDE 0.9% INJ 100 ML IV SCH ×2 (10:24→21:32)
[2016-09-11] MEDS: PANTOPRAZOLE SOD 40 MG DELAYED RELEASE TAB PO SCH (10:24)
[2016-09-11] MEDS: DOCUSATE SODIUM 50 MG/SENNA 8.6 MG TAB PO SCH ×2 (10:24→21:32)
[2016-09-11] MEDS: DOCUSATE SODIUM 100 MG CAP PO SCH ×2 (10:24→21:32)
[2016-09-11] MEDS: LISINOPRIL 20 MG TAB PO SCH (10:24)
--- NOTE | 2016-09-11 11:08 | HHI.CCPN ---
Subjective Remarks/Hospital Course 09/08: This is a 50-year-old [place] male. Date of admission 09/08/2016. Past include hypertension alcohol use and tobacco use. Patient presents to [facility] ED with a 3-4 day history of headaches described as bilateral frontal 6 out of 10 described as throbbing. Not associated with photophobia or vision changes. Patient is taking Tylenol without relief. He's also been having gait and balance disorder not favoring either side. Denies any falls, striking his head or syncope. When patient. [place] of soon have an elevated systolic blood pressure 204. CT head revealed 2.3 x 1.9 cm hyperdense mass the third ventricle obstructing lateral ventricles. There is also transependymal edema adjacent to both ventricles. Dr. Germain/neurosurgery was notified and recommended ICU admission with consultation. We are asked to admit. Patient hemodynamically stable. Besides gait imbalance disorder which was not specifically evaluated no cranial nerve, strength or sensation deficits noted. 09/09: Resting in bed comfortably not in any acute distress. Complaining of some headache currently. Denies any chest pain or shortness of breath currently. 09/10: Resting comfortably in bed. Awaiting neurosurgery today by Dr. Germain for colloid cyst causing hydrocephalus. 09/11: Underwent Stereotactic, image-guided craniotomy, resection of colloid cyst by Dr. Germain on 09/10/2016. Extubated following procedure. This morning doing well. Has ventriculostomy in place with minimal blood-tinged CSF drainage. Objective Vital Signs Date Time Temp Pulse Resp B/P Pulse Ox O2 Delivery O2 Flow Rate FiO2 09/11/16 10:37 100 21 09/11/16 08:00 Room Air 09/11/16 08:00 48 09/11/16 04:00 98.4 14 148/83 09/10/16 13:45 3 Intake and Output 09/10/16 09/10/16 09/11/16 08:00 16:00 00:00 Intake Total 740 ml 2666 ml 765 ml Output Total 1330 ml 3590 ml Balance 740 ml 1336 ml -2825 ml Result Diagram: 09/11/16 0415 09/11/16 0415 Imaging Last [address] 09/08/16 0000 Signed Impressions: Service Date/Time: Thursday, September 08, 2016 17:13 - CONCLUSION: 1. Large well-defined hyperdense mass involving the third ventricle measuring 2.3 x 1.9 cm. This has a characteristic appearance of a colloid cyst. This is causing hydronephrosis and obstruction to the lateral ventricles bilaterally. 2. There is transependymal edema bilaterally with effacement of the sulci along both cerebral hemispheres suggesting cerebral edema.. Roger Pratt MD Objective Remarks GENERAL: 50-year-old AA male, the resting in bed in no acute distress SKIN: Warm and dry. No rash HEAD: Atraumatic. Normocephalic. EYES: Pupils equal and round about 3-4 mm bilaterally and reactive. No scleral icterus. No injection or drainage. ENT: No nasal bleeding or discharge. Mucous membranes pink and moist. NECK: Trachea midline. No JVD. CARDIOVASCULAR: Rate a cardiac, RRR. S1, S2 no S4. Without murmur RESPIRATORY: Clear to auscultation. Breath sounds equal bilaterally. GASTROINTESTINAL: Abdomen soft, non-tender, nondistended. Hepatic and splenic margins not palpable. MUSCULOSKELETAL: Extremities without noted in peripheral edema. No obvious deformities. NEUROLOGICAL: Awake and alert. Ventriculostomy in place, dressing over craniotomy site which is clean dry and intact. WESLEY drain in place No obvious cranial nerve deficits. Motor grossly within normal limits. Five out of 5 muscle strength in the arms and legs. No pronator drift. Normal speech. Gait was not assessed PSYCHIATRIC: Appropriate mood and affect; insight and judgment normal. 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 There is also transependymal edema adjacent to both ventricles. Dr. Germain/neurosurgery following and patient underwent MRI brain which confirmed diagnosis Acetaminophen for fever [place]/morphine for pain management Placed on Keppra 500 mg IV twice a day seizure prophylaxis Decadron secondary to brain edema 4 mill grams IV every 6 hours s/p Stereotactic, image-guided craniotomy, resection of colloid cyst and ventriculostomy placement on 09/10 CV: Hypertension As needed labetalol/hydralazine/Nitropaste to keep systolic blood pressure less than 160. Off Cleviprex gtt. Continue lisinopril 20 mg daily. Resp: Nasal cannula to maintain saturations greater than equal to 92% Incentive spirometry while awake GI: Advance by mouth diet if okay with neurosurgery Protonix for GI prophylaxis Bowel regimen with Viridiana-Colace twice a day initiated : No indication for Parra catheter Endo: Sliding scale insulin if indicated to maintain euglycemia Renal: Monitor and replete electrolytes, follow BUN/creatinine Accurate I's and O's Monitor urine output Heme: CBC within normal limits. Follow-up on coags ID: Monitor for infection MSK: PT evaluate and treat FEN: Replace electrolytes as clinically indicated Access - Utilize peripheral IV. Central line if indicated Prophylaxis - GI - Protonix - DVT - SCD/holding pharmacological prophylaxis in light of craniotomy till cleared by neurosurgery. Further recommendations per neurosurgery. . Felipe Lundberg MD Sep 11, 2016 11:08
[2016-09-11] MEDS: MULTIVITAMIN INJ 10 ML, THIAMINE INJ 100 MG, FOLIC ACID INJ 1 MG in SODIUM CHLORID 0.9%... IV SCH (11:45)
[2016-09-11] MEDS: SODIUM CHLORIDE 0.9% FLUSH 5 ML FLUSH IVF SCH ×2 (11:47→21:00)
[2016-09-11] MEDS: SODIUM CHLORIDE 0.9% FLUSH 10 ML FLUSH IV FLUSH SCH ×2 (12:26→21:32)
--- NOTE | 2016-09-11 18:00 | HHI.NSPN ---
History Chief Complaint: no complaints Interval History 50-year-old male status post right frontal craniotomy resection of third ventricular lesion-probable colloid cyst on 09/10/16. 09/11/16: No complaint of significant headache, blurred vision and diplopia speech difficulty memory loss pain weakness or numbness in the extremities, nausea, vomiting. Exam Results Vital Signs Date Time Temp Pulse Resp B/P Pulse Ox O2 Delivery O2 Flow Rate FiO2 09/11/16 16:00 50 09/11/16 16:00 98.6 12 130/70 96 09/11/16 10:37 21 09/11/16 08:00 Room Air 09/10/16 13:45 3 Intake and Output 09/10/16 09/10/16 09/11/16 08:00 16:00 00:00 Intake Total 740 ml 2666 ml 765 ml Output Total 1330 ml 3590 ml Balance 740 ml 1336 ml -2825 ml Physical Examination Respirations clear to auscultation Cardiac regular without murmur Abdomen soft Head dressing in place-dry Moderate blood-tinged CSF output per external ventricular drain Awake and alert Oriented X 3 Speech is clear Conversant and appropriate Follow simple commands well Answers questions appropriately Reasonable judgment and insight Recent and remote memory are intact No evidence of anxiety or depression Pupils are equal and reactive to accommodation. Extra-ocular movements, visual suggs to confrontation, facial sensorimotor, tongue, palate, sternocleidomastoid testing, hearing to finger rub testing, and bilateral shoulder shrug are all intact. Sensation is intact to light touch in all extremities Strength normal major flexion and extension groups all extremities Lab, Micro, Other Results Laboratory Tests Test 09/11/16 04:15 White Blood Count 15.7 TH/MM3 Red Blood Count 4.52 MIL/MM3 Hemoglobin 12.5 GM/DL Hematocrit 38.6 % Mean Corpuscular Volume 85.5 FL Mean Corpuscular Hemoglobin 27.8 PG Mean Corpuscular Hemoglobin 32.5 % Concent Red Cell Distribution Width 14.3 % Platelet Count 285 TH/MM3 Mean Platelet Volume 9.2 FL Neutrophils (%) (Auto) 88.9 % Lymphocytes (%) (Auto) 5.8 % Monocytes (%) (Auto) 5.2 % Eosinophils (%) (Auto) 0.0 % Basophils (%) (Auto) 0.1 % Neutrophils # (Auto) 14.0 TH/MM3 Lymphocytes # (Auto) 0.9 TH/MM3 Monocytes # (Auto) 0.8 TH/MM3 Eosinophils # (Auto) 0.0 TH/MM3 Basophils # (Auto) 0.0 TH/MM3 CBC Comment DIFF FINAL Differential Comment Sodium Level 150 MEQ/L Potassium Level 3.9 MEQ/L Chloride Level 117 MEQ/L Carbon Dioxide Level 28.5 MEQ/L Anion Gap 5 MEQ/L Blood Urea Nitrogen 14 MG/DL Creatinine 1.02 MG/DL Estimat Glomerular Filtration 94 ML/MIN Rate Random Glucose 98 MG/DL Calcium Level 9.1 MG/DL 09/11/2016 CT scan head images reviewed by the undersigned. Agree with findings as noted below: Head CT 09/11/16 0000 Signed Impressions: Service Date/Time: Sunday, September 11, 2016 05:49 - CONCLUSION: 1. Interval resection of the previously identified colloid cyst in the region of the third ventricle. Associated postsurgical changes with right craniotomy, pneumocephalus and a small amount of subdural blood subjacent to the craniotomy site. 2. WESLEY type drain in the surgical bed of resection. No midline shift 3. Stable periventricular areas of diminished attenuation characteristic of transependymal flow of CSF. Jonathan Farley MD Medical Decision Making Impression and Plan Impression: 1. Stable neurologic exam following right frontal craniotomy resection third ventricular lesion-probable colloid cyst on 09/10/16. Plan: Continue intensive surgical care neurologic checks. Continue present drains Continue external ventricular drain Regular diet Non-chemical DVT prophylaxis Yemi Rodarte MD Sep 11, 2016 17:59
[2016-09-11] MEDS: LABETALOL HCL 100 MG/20 ML VIAL IV PUSH PRN (23:06)
[2016-09-11] MEDS: cloNIDine HCL 0.1 MG TAB PO PRN (23:45)
[2016-09-12] VITALS (13 sets, daily range): BP systolic 129–178; BP diastolic 78–103; PULSE 44–73; RESP 16–18; TEMP 97.6–98.5; O2SAT 96–100
[2016-09-12] MEDS: CHLORHEXIDINE GLUCONATE 2 % 1 PACK (2 CLOTHS) TOP SCH (04:00)
[2016-09-12] MEDS: DEXAMETHASONE SOD PHOS 4 MG/ML VIAL IV PUSH SCH ×2 (06:01→17:06)
[2016-09-12] MEDS: LABETALOL HCL 100 MG/20 ML VIAL IV PUSH PRN (06:02)
[2016-09-12] MEDS: hydrALAZINE HCL 20 MG/ML VIAL IV PUSH PRN ×2 (06:27→17:06)
[2016-09-12] MEDS: SODIUM CHLOR 0.9% 1000 ML INJ 1,000 ML IV SCH (06:46)
[2016-09-12] MEDS: INSULIN NovoLIN REGULAR SUPPLEMENTAL SCALE SQ SCH ×4 (06:56→20:25)
[2016-09-12] MEDS: levETIRAcetam INJ 500 MG in SODIUM CHLORIDE 0.9% INJ 100 ML IV SCH ×2 (08:11→20:24)
[2016-09-12] MEDS: HYDROCHLOROTHIAZIDE 25 MG TAB PO SCH (08:11)
[2016-09-12] MEDS: DOCUSATE SODIUM 100 MG CAP PO SCH ×2 (08:11→20:24)
[2016-09-12] MEDS: PANTOPRAZOLE SOD 40 MG DELAYED RELEASE TAB PO SCH (08:12)
[2016-09-12] MEDS: LISINOPRIL 20 MG TAB PO SCH (08:12)
--- NOTE | 2016-09-12 08:32 | HHI.CCPN ---
Subjective Remarks/Hospital Course 09/08: This is a 50-year-old [place] male. Date of admission 09/08/2016. Past include hypertension alcohol use and tobacco use. Patient presents to [facility] with a 3-4 day history of headaches described as bilateral frontal 6 out of 10 described as throbbing. Not associated with photophobia or vision changes. Patient is taking Tylenol without relief. He's also been having gait and balance disorder not favoring either side. Denies any falls, striking his head or syncope. When patient. [facility] of soon have an elevated systolic blood pressure 204. CT head revealed 2.3 x 1.9 cm hyperdense mass the third ventricle obstructing lateral ventricles. There is also transependymal edema adjacent to both ventricles. Dr. Germain/neurosurgery was notified and recommended ICU admission with consultation. We are asked to admit. Patient hemodynamically stable. Besides gait imbalance disorder which was not specifically evaluated no cranial nerve, strength or sensation deficits noted. 09/09: Resting in bed comfortably not in any acute distress. Complaining of some headache currently. Denies any chest pain or shortness of breath currently. 09/10: Resting comfortably in bed. Awaiting neurosurgery today by Dr. Germain for colloid cyst causing hydrocephalus. 09/11: Underwent Stereotactic, image-guided craniotomy, resection of colloid cyst by Dr. Germain on 09/10/2016. Extubated following procedure. This morning doing well. Has ventriculostomy in place with minimal blood-tinged CSF drainage. 09/12: Resting in bed. Ventriculostomy remains in place with blood-tinged drainage. Elevated blood pressure noted. Objective Vital Signs Date Time Temp Pulse Resp B/P Pulse Ox O2 Delivery O2 Flow Rate FiO2 09/12/16 06:00 48 09/12/16 04:00 97.6 18 154/93 96 09/11/16 20:13 21 09/11/16 20:00 Room Air 09/10/16 13:45 3 Intake and Output 09/11/16 09/11/16 09/12/16 08:00 16:00 00:00 Intake Total 787 ml 1437 ml 1259 ml Output Total 2590 ml 1272 ml 1088 ml Balance -1803 ml 165 ml 171 ml Result Diagram: 09/11/16 0415 09/11/16 0415 Imaging Last [address] 09/08/16 0000 Signed Impressions: Service Date/Time: Thursday, September 08, 2016 17:13 - CONCLUSION: 1. Large well-defined hyperdense mass involving the third ventricle measuring 2.3 x 1.9 cm. This has a characteristic appearance of a colloid cyst. This is causing hydronephrosis and obstruction to the lateral ventricles bilaterally. 2. There is transependymal edema bilaterally with effacement of the sulci along both cerebral hemispheres suggesting cerebral edema.. Roger Pratt MD Objective Remarks GENERAL: 50-year-old AA male, the resting in bed in no acute distress SKIN: Warm and dry. No rash HEAD: Atraumatic. Normocephalic. EYES: Pupils equal and round about 3-4 mm bilaterally and reactive. No scleral icterus. No injection or drainage. ENT: No nasal bleeding or discharge. Mucous membranes pink and moist. NECK: Trachea midline. No JVD. CARDIOVASCULAR: Rate a cardiac, RRR. S1, S2 no S4. Without murmur RESPIRATORY: Clear to auscultation. Breath sounds equal bilaterally. GASTROINTESTINAL: Abdomen soft, non-tender, nondistended. Hepatic and splenic margins not palpable. MUSCULOSKELETAL: Extremities : No edema, warm bilaterally NEUROLOGICAL: Awake and alert. Ventriculostomy in place, dressing over craniotomy site which is clean dry and intact. WESLEY drain in place No obvious cranial nerve deficits. Motor grossly within normal limits. Five out of 5 muscle strength in the arms and legs. No pronator drift. Normal speech. Gait was not assessed PSYCHIATRIC: Appropriate mood and affect; insight and judgment normal. 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 There is also transependymal edema adjacent to both ventricles. Dr. Germain/neurosurgery following and patient underwent MRI brain which confirmed diagnosis Acetaminophen for fever [place]/morphine for pain management Placed on Keppra 500 mg IV twice a day seizure prophylaxis Decadron secondary to brain edema 4 mill grams IV every 6 hours s/p Stereotactic, image-guided craniotomy, resection of colloid cyst and ventriculostomy placement on 09/10 CV: Hypertension As needed labetalol/hydralazine/Nitropaste to keep systolic blood pressure less than 160. Off Cleviprex gtt. Continue lisinopril 20 mg daily. Added amlodipine 10 mg by mouth daily and HCTZ 25 mg by mouth daily on 09/12 Resp: Nasal cannula to maintain saturations greater than equal to 92% Incentive spirometry while awake GI: Advance by mouth diet if okay with neurosurgery Protonix for GI prophylaxis Bowel regimen with Viridiana-Colace twice a day initiated : No indication for Parra catheter Endo: Sliding scale insulin if indicated to maintain euglycemia Renal: Monitor and replete electrolytes, follow BUN/creatinine Accurate I's and O's Monitor urine output Heme: CBC within normal limits. Follow-up on coags ID: Monitor for infection MSK: PT evaluate and treat FEN: Replace electrolytes as clinically indicated Access - Utilize peripheral IV. Central line if indicated Prophylaxis - GI - Protonix - DVT - SCD/holding pharmacological prophylaxis in light of craniotomy till cleared by neurosurgery. Further recommendations per neurosurgery. . Felipe Lundberg MD Sep 12, 2016 08:31
[2016-09-12] MEDS: PANTOPRAZOLE SODIUM 40 MG VIAL IV SCH (09:00)
[2016-09-12] MEDS: SODIUM CHLORIDE 0.9% FLUSH 5 ML FLUSH IVF SCH ×2 (09:00→20:24)
[2016-09-12] MEDS: SODIUM CHLORIDE 0.9% FLUSH 10 ML FLUSH IV FLUSH SCH ×2 (09:00→20:24)
[2016-09-12] MEDS: DOCUSATE SODIUM 50 MG/SENNA 8.6 MG TAB PO SCH ×2 (09:00→20:24)
[2016-09-12] MEDS: cloNIDine HCL 0.1 MG TAB PO PRN ×2 (10:23→16:09)
[2016-09-12] MEDS: NS + KCL 20 MEQ INJ 1,000 ML IV SCH (11:50)
--- NOTE | 2016-09-12 12:57 | HHI.NSPN ---
History Chief Complaint: no complaints Interval History 50-year-old male status post right frontal craniotomy resection of third ventricular lesion-probable colloid cyst on 09/10/16. 09/11/16: No complaint of significant headache, blurred vision and diplopia speech difficulty memory loss pain weakness or numbness in the extremities, nausea, vomiting. 09/12/16: Remains awake and alert. No significant headache. Tolerating diet. External ventricular drain functioning well Exam Results Vital Signs Date Time Temp Pulse Resp B/P Pulse Ox O2 Delivery O2 Flow Rate FiO2 09/12/16 10:00 46 09/12/16 08:00 97.8 16 163/92 99 09/12/16 07:00 Room Air 09/11/16 20:13 21 09/10/16 13:45 3 Intake and Output 09/11/16 09/11/16 09/12/16 08:00 16:00 00:00 Intake Total 787 ml 1437 ml 1259 ml Output Total 2590 ml 1272 ml 1088 ml Balance -1803 ml 165 ml 171 ml Physical Examination Respirations clear and nonlabored Cardiac sinus rhythm on monitor Abdomen soft Head dressing in place-dry Moderate blood-tinged CSF output per external ventricular drain Awake and alert Oriented X 3 Speech is clear Conversant and appropriate Follow simple commands well Answers questions appropriately Reasonable judgment and insight Recent and remote memory are intact No evidence of anxiety or depression Pupils are equal and reactive to accommodation. Extra-ocular movements, visual suggs to confrontation, facial sensorimotor, tongue, palate, sternocleidomastoid testing, hearing to finger rub testing, and bilateral shoulder shrug are all intact. Sensation is intact to light touch in all extremities Strength normal major flexion and extension groups all extremities Medical Decision Making Impression and Plan Impression: 1. Stable neurologic exam following right frontal craniotomy resection third ventricular lesion-probable colloid cyst on 09/10/16. Plan: Continue intensive surgical care neurologic checks. Continue present drains Continue external ventricular drain Regular diet Non-chemical DVT prophylaxis Out of bed with assist Yemi Rodarte MD Sep 12, 2016 12:57
[2016-09-13] VITALS (14 sets, daily range): BP systolic 128–180; BP diastolic 70–100; PULSE 48–67; RESP 14–18; TEMP 97.8–98.4; O2SAT 94–99
[2016-09-13] MEDS: CHLORHEXIDINE GLUCONATE 2 % 1 PACK (2 CLOTHS) TOP SCH (04:00)
[2016-09-13] MEDS: DEXAMETHASONE SOD PHOS 4 MG/ML VIAL IV PUSH SCH ×2 (05:13→17:13)
[2016-09-13] MEDS: SODIUM CHLOR 0.9% 1000 ML INJ 1,000 ML IV SCH ×2 (06:36→07:00)
[2016-09-13] MEDS: INSULIN NovoLIN REGULAR SUPPLEMENTAL SCALE SQ SCH ×4 (07:00→21:13)
[2016-09-13] MEDS: NS + KCL 20 MEQ INJ 1,000 ML IV SCH ×2 (07:50→15:51)
[2016-09-13] MEDS: levETIRAcetam INJ 500 MG in SODIUM CHLORIDE 0.9% INJ 100 ML IV SCH ×2 (07:58→20:34)
[2016-09-13] MEDS: HYDROCHLOROTHIAZIDE 25 MG TAB PO SCH (07:58)
[2016-09-13] MEDS: DOCUSATE SODIUM 100 MG CAP PO SCH ×2 (07:58→20:33)
[2016-09-13] MEDS: DOCUSATE SODIUM 50 MG/SENNA 8.6 MG TAB PO SCH ×2 (07:58→20:33)
[2016-09-13] MEDS: PANTOPRAZOLE SOD 40 MG DELAYED RELEASE TAB PO SCH (07:59)
[2016-09-13] MEDS: SODIUM CHLORIDE 0.9% FLUSH 5 ML FLUSH IVF SCH ×2 (07:59→20:35)
[2016-09-13] MEDS: LISINOPRIL 20 MG TAB PO SCH (07:59)
[2016-09-13] MEDS: SODIUM CHLORIDE 0.9% FLUSH 10 ML FLUSH IV FLUSH SCH (07:59)
[2016-09-13] MEDS: PANTOPRAZOLE SODIUM 40 MG VIAL IV SCH (07:59)
--- NOTE | 2016-09-13 10:44 | HHI.CCPN ---
Subjective Remarks/Hospital Course 09/08: This is a 50-year-old [place] male. Date of admission 09/08/2016. Past include hypertension alcohol use and tobacco use. Patient presents to [facility] ED with a 3-4 day history of headaches described as bilateral frontal 6 out of 10 described as throbbing. Not associated with photophobia or vision changes. Patient is taking Tylenol without relief. He's also been having gait and balance disorder not favoring either side. Denies any falls, striking his head or syncope. When patient. [place] of soon have an elevated systolic blood pressure 204. CT head revealed 2.3 x 1.9 cm hyperdense mass the third ventricle obstructing lateral ventricles. There is also transependymal edema adjacent to both ventricles. Dr. Germain/neurosurgery was notified and recommended ICU admission with consultation. We are asked to admit. Patient hemodynamically stable. Besides gait imbalance disorder which was not specifically evaluated no cranial nerve, strength or sensation deficits noted. 09/09: Resting in bed comfortably not in any acute distress. Complaining of some headache currently. Denies any chest pain or shortness of breath currently. 09/10: Resting comfortably in bed. Awaiting neurosurgery today by Dr. Germain for colloid cyst causing hydrocephalus. 09/11: Underwent Stereotactic, image-guided craniotomy, resection of colloid cyst by Dr. Germain on 09/10/2016. Extubated following procedure. This morning doing well. Has ventriculostomy in place with minimal blood-tinged CSF drainage. 09/12: Resting in bed. Ventriculostomy remains in place with blood-tinged drainage. Elevated blood pressure noted. 09/13: Resting comfortably in bed. Awake and alert. Denies any headache. Ventriculostomy remains in place. Objective Vital Signs Date Time Temp Pulse Resp B/P Pulse Ox O2 Delivery O2 Flow Rate FiO2 09/13/16 10:00 56 09/13/16 08:00 97.9 18 180/94 98 09/13/16 07:00 Room Air 09/12/16 20:11 21 09/10/16 13:45 3 Intake and Output 09/12/16 09/12/16 09/13/16 08:00 16:00 00:00 Intake Total 1669 ml 923 ml Output Total 2740 ml 2240 ml Balance -1071 ml -1317 ml Result Diagram: 09/11/16 0415 09/11/16 0415 Imaging Last [address] 09/08/16 0000 Signed Impressions: Service Date/Time: Thursday, September 08, 2016 17:13 - CONCLUSION: 1. Large well-defined hyperdense mass involving the third ventricle measuring 2.3 x 1.9 cm. This has a characteristic appearance of a colloid cyst. This is causing hydronephrosis and obstruction to the lateral ventricles bilaterally. 2. There is transependymal edema bilaterally with effacement of the sulci along both cerebral hemispheres suggesting cerebral edema.. Roger Pratt MD Objective Remarks GENERAL: 50-year-old AA male, the resting in bed in no acute distress SKIN: Warm and dry. No rash HEAD: Atraumatic. Normocephalic. EYES: Pupils equal and round about 3-4 mm bilaterally and reactive. No scleral icterus. No injection or drainage. ENT: No nasal bleeding or discharge. Mucous membranes pink and moist. NECK: Trachea midline. No JVD. CARDIOVASCULAR: Rate a cardiac, RRR. S1, S2 no S4. Without murmur RESPIRATORY: Clear to auscultation. Breath sounds equal bilaterally. GASTROINTESTINAL: Abdomen soft, non-tender, nondistended. Hepatic and splenic margins not palpable. MUSCULOSKELETAL: Extremities : No edema, warm bilaterally NEUROLOGICAL: Awake and alert. Ventriculostomy in place, dressing over craniotomy site which is clean dry and intact. WESLEY drain in place No obvious cranial nerve deficits. Motor grossly within normal limits. Five out of 5 muscle strength in the arms and legs. No pronator drift. Normal speech. Gait was not assessed PSYCHIATRIC: Appropriate mood and affect; insight and judgment normal. 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 There is also transependymal edema adjacent to both ventricles. Dr. Germain/neurosurgery following and patient underwent MRI brain which confirmed diagnosis Acetaminophen for fever [place]/morphine for pain management Placed on Keppra 500 mg IV twice a day seizure prophylaxis Decadron secondary to brain edema 4 mill grams IV every 6 hours s/p Stereotactic, image-guided craniotomy, resection of colloid cyst and ventriculostomy placement on 09/10 CV: Hypertension As needed labetalol/hydralazine/Nitropaste to keep systolic blood pressure less than 160. Off Cleviprex gtt. Continue lisinopril 20 mg daily. Added amlodipine 10 mg by mouth daily and HCTZ 25 mg by mouth daily on 09/12 Resp: Nasal cannula to maintain saturations greater than equal to 92% Incentive spirometry while awake GI: Advance by mouth diet if okay with neurosurgery Protonix for GI prophylaxis Bowel regimen with Viridiana-Colace twice a day initiated : No indication for Parra catheter Endo: Sliding scale insulin if indicated to maintain euglycemia Renal: Monitor and replete electrolytes, follow BUN/creatinine Accurate I's and O's Monitor urine output Heme: CBC within normal limits. Follow-up on coags ID: Monitor for infection MSK: PT evaluate and treat FEN: Replace electrolytes as clinically indicated Access - Utilize peripheral IV. Central line if indicated Prophylaxis - GI - Protonix - DVT - SCD/holding pharmacological prophylaxis in light of craniotomy till cleared by neurosurgery. Further recommendations per neurosurgery. . Felipe Lundberg MD Sep 13, 2016 10:44
--- NOTE | 2016-09-13 14:25 | HHI.NSPN ---
(Lorraine Mcgowan) Note Status Status: Progress Note (Lorraine Mcgowan) Interval History Interval History This is a 50-year-old [place] male with history of arterial hypertension alcohol use and tobacco use. He presents to [facility] ED with a 3-4 day history of headaches. He describes his headaches as bilateral frontal, 6 out of 10 described as throbbing. Not associated with photophobia or vision changes. he is taking Tylenol without relief. He's also been having gait and balance disorder not favoring either side. Denies any falls, striking his head or syncope. He had an elevated systolic blood pressure 204. CT head revealed 2.3 x 1.9 cm hyperdense mass the third ventricle obstructing lateral ventricles. Neurosurgical consultation was requested 09/13: POD 3, doing well, pt reports his confusion is better and thinking much clearer. Minimal surgical pain. (Lorraine Mcgowan) Labs, Micro, & Vital Signs Results Date Time Temp Pulse Resp B/P Pulse Ox O2 Delivery O2 Flow Rate FiO2 09/13/16 12:57 96 09/13/16 12:00 60 09/13/16 12:00 98.4 60 17 154/97 98 09/13/16 10:00 56 09/13/16 08:00 52 09/13/16 08:00 97.9 52 18 180/94 98 09/13/16 07:00 98 Room Air 09/13/16 06:00 48 09/13/16 04:00 49 09/13/16 04:00 98.0 49 16 180/94 95 09/13/16 02:00 53 09/13/16 00:00 51 09/13/16 00:00 97.8 51 14 129/70 99 09/12/16 22:00 58 09/12/16 20:11 97 21 09/12/16 20:00 98.0 57 16 129/80 96 09/12/16 20:00 62 09/12/16 19:00 96 Room Air 09/12/16 18:00 73 09/12/16 16:00 97.8 56 18 172/94 100 09/12/16 16:00 56 09/13/16 07:00 Intake Total 3694 ml Output Total 6320 ml Balance -2626 ml Constitutional Vital Signs Date Time Temp Pulse Resp B/P Pulse Ox O2 Delivery O2 Flow Rate FiO2 09/13/16 12:57 96 09/13/16 12:00 60 09/13/16 12:00 98.4 60 17 154/97 98 09/13/16 10:00 56 09/13/16 08:00 52 09/13/16 08:00 97.9 52 18 180/94 98 09/13/16 07:00 98 Room Air 09/13/16 06:00 48 09/13/16 04:00 49 09/13/16 04:00 98.0 49 16 180/94 95 09/13/16 02:00 53 09/13/16 00:00 51 09/13/16 00:00 97.8 51 14 129/70 99 09/12/16 22:00 58 09/12/16 20:11 97 21 09/12/16 20:00 98.0 57 16 129/80 96 09/12/16 20:00 62 09/12/16 19:00 96 Room Air 09/12/16 18:00 73 09/12/16 16:00 97.8 56 18 172/94 100 09/12/16 16:00 56 09/13/16 07:00 Intake Total 3694 ml Output Total 6320 ml Balance -2626 ml (Lorraine Mcgowan) Review of Systems/Exam Exam Mr. Scott is alert, awake and oriented to time, place and person. Speech is fluent. Right wound is well demarcated, healing well. WESLEY drain in place. Right ventriculostomy drain discontinued. Cranial nerve examination: pupils to be equal, round and reactive to light. Extra-ocular movements are intact. Facial motor and sensory function are normal and symmetrical. Neck is soft and supple with a good range of motion without pain. Muscle strength is normal in all muscle groups of both upper and lower extremities. Sensory examination is intact to light touch in both the upper and lower extremities. There is a bilateral plantar flexion response. Cerebellar examination is unremarkable, without deficits. (Lorraine Mcgowan) Medications Current Medications Current Medications Medications (Trade) Dose Ordered Sig/Sandrine Route PRN Reason Start Time Stop Time Status Last Admin Dose Admin Acetaminophen (Tylenol) 650 mg Q6H PRN PO PAIN 1-2 AND/OR FEVER >101F 09/08/16 19:30 Pantoprazole Sodium (Protonix Inj) 40 mg DAILY IV 09/09/16 09:00 09/10/16 14:42 Miscellaneous Information 1 [id number] XX 09/08/16 19:30 Chlorhexidine Gluconate (Chlorhexidine 2% Cloth) 3 pack Taper DAILY@04 TOP 09/09/16 04:00 09/05/17 03:59 09/12/16 04:00 Chlorhexidine Gluconate (Chlorhexidine 2% Cloth) 3 pack UNSCH PRN TOP HYGIENIC CARE 09/08/16 19:30 Senna/Docusate Sodium (Viridiana-Colace) 1 tab BID PO 09/08/16 21:00 09/13/16 07:58 Magnesium Hydroxide (Milk Of Magnesia Liq) 30 ml Q12H PRN PO MILD - MODERATE CONSTIPATION 09/08/16 19:30 Sennosides (Senokot) 17.2 mg Q12H PRN PO MODERATE - SEVERE CONSTIPATION 09/08/16 19:30 Bisacodyl (Dulcolax Supp) 10 mg DAILY PRN RECTAL SEVERE CONSITIPATION 09/08/16 19:30 Lactulose (Lactulose Liq) 30 ml DAILY PRN PO SEVERE CONSITIPATION 09/08/16 19:30 Labetalol HCl (Trandate Inj) 10 mg Q1HR PRN IV PUSH SBP>160, DBP>90, HR>65 09/08/16 19:30 09/11/16 23:06 Hydralazine HCl (Apresoline Inj) 10 mg Q1HR PRN IV PUSH SBP>160, DBP>90 09/08/16 19:30 09/12/16 17:06 Nitroglycerin 2 inch 2 inch Q6HR PRN TOPICAL SBP>160, DBP>90 09/08/16 19:30 09/08/16 22:38 Clevidipine 50 ml @ 0 mls/hr TITRATE IV 09/08/16 19:30 09/09/16 10:41 Levetriacetam/ Sodium Chloride (Keppra Inj/NS Inj) 105 ml @ 420 mls/hr Q12HR IV 09/08/16 21:00 09/13/16 07:58 Dextrose (D50w (Vial) Inj) 50 ml UNSCH PRN IV HYPOGLYCEMIA-SEE COMMENTS 09/08/16 19:45 Glucagon (Glucagon Inj) 1 mg UNSCH PRN OTHER HYPOGLYCEMIA-SEE COMMENTS 09/08/16 19:45 Enalaprilat (Vasotec Inj) 1.25 mg Q6H PRN IV PUSH SBP>160, DBP>90 09/08/16 23:30 09/13/16 05:13 Clonidine (Catapres) 0.1 mg Q6H PRN PO SBP>160, DBP>90, HR>65 09/08/16 23:30 09/12/16 16:09 Lisinopril 20 mg 20 mg DAILY PO 09/10/16 09:00 09/13/16 07:59 Potassium Chloride/Sodium Chloride (NS + KCl 20 Meq Inj) 1,000 ml @ 100 mls/hr Q10H IV 09/10/16 09:50 09/12/16 11:50 IV Flush (NS Flush) 2 ml UNSCH PRN IVF FLUSH AFTER USING IV ACCESS 09/10/16 10:00 IV Flush (NS Flush) 2 ml BID IVF 09/10/16 21:00 09/13/16 07:59 Docusate Sodium (Colace) 100 mg BID PO 09/10/16 21:00 09/13/16 07:58 Pantoprazole Sodium (Protonix) 40 mg DAILY PO 09/11/16 09:00 09/13/16 07:59 Ondansetron HCl (Zofran Inj) 4 mg Q6H PRN IV NAUSEA OR VOMITING 09/10/16 10:00 Calcium Gluconate 1 gm 1 gm UNSCH PRN IV SEE LABEL COMMENTS 09/10/16 10:00 Potassium Chloride 100 ml @ 50 mls/hr UNSCH PRN IV POTASSIUM LESS THAN 4 09/10/16 10:00 Magnesium Sulfate/ Sodium Chloride (Magnesium Sulfate Inj/NS Inj) 108 ml @ 108 mls/hr UNSCH PRN IV MAGNESIUM LESS THAN 2 09/10/16 10:00 Acetaminophen/ Hydrocodone Bitart ([place] 10-325 Mg) 1 tab Q4H PRN PO PAIN SCALE 1 TO 5 09/10/16 10:00 Acetaminophen/ Hydrocodone Bitart ([place] 10-325 Mg) 2 tab Q4H PRN PO PAIN SCALE 6 TO 10 09/10/16 10:00 Morphine Sulfate (Morphine Inj) 2 mg Q2H PRN IV PUSH PAIN SCALE 1 TO 6 09/10/16 10:00 Morphine Sulfate 4 mg 4 mg Q2H PRN IV PUSH PAIN SCALE 7 TO 10 09/10/16 10:00 09/10/16 22:03 Nicardipine HCl/ Sodium Chloride (Cardene Inj/NS 250 ml Inj) 260 ml @ 0 mls/hr TITRATE IV 09/10/16 14:00 Amlodipine Besylate (Norvasc) 10 mg DAILY PO 09/12/16 08:00 09/13/16 07:58 Dexamethasone Sodium Phosphate (Decadron Inj) 4 mg Q12H IV PUSH 09/12/16 18:00 09/13/16 05:13 Hydrochlorothiazide (Hydrodiuril) 25 mg DAILY PO 09/12/16 09:00 09/13/16 07:58 (Lorraine Mcgowan) Medical Decision Making MDM Remarks 50 year old male with 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 I reviewed and agree with the findings presented. I attest that I had a [id number] encounter with the patient on the same day, and personally performed and documented my assessment and findings in the medical record. (Dave Germain MD) Lorraine Mcgowan Sep 13, 2016 14:25 Dave Germain MD Sep 19, 2016 19:44
[2016-09-13] MEDS: cloNIDine HCL 0.1 MG TAB PO PRN (17:29)
[2016-09-14] VITALS (9 sets, daily range): BP systolic 125–156; BP diastolic 0–90; PULSE 40–95; RESP 16–18; TEMP 97.8–98.6; O2SAT 94–96
[2016-09-14] MEDS: CHLORHEXIDINE GLUCONATE 2 % 1 PACK (2 CLOTHS) TOP SCH (04:00)
--- NOTE | 2016-09-14 05:31 | RADRPT ---
EXAM DATE/TIME: 09/14/2016 04:59 [facility] COMPARISON: CT BRAIN W/O CONTRAST, September 11, 2016, 5:49. INDICATIONS : Post craniotomy. RADIATION DOSE: 56.12 CTDIvol (mGy) MEDICAL HISTORY : Hypertension. SURGICAL HISTORY : Craniotomy. ENCOUNTER: Subsequent ACUITY: 3 days PAIN SCALE: 4/10 LOCATION: cranial TECHNIQUE: Multiple contiguous axial images were obtained of the head. Using automated exposure control and adj ustment of the mA and/or kV according to patient size, radiation dose was kept as low as reasonably a chievable to obtain optimal diagnostic quality images. DICOM format image data is available electro nically for review and comparison. FINDINGS: Ventriculostomy catheter has been removed in the interim. Small intraventricular blood seen in the th ird ventricle, series 2 image 16. The small blood in the posterior horns of both lateral ventricles i s no longer seen. There is no ventriculomegaly. Mild parenchymal hemorrhage seen along the course of the ventriculostomy catheter, unchanged. The right frontal subdural blood and air are resolving. Ther e is a bowel 1 mm of leftward midline shift, decreased. No new hemorrhage. No mass demonstrated. No evidence of an acute ischemic event. CONCLUSION: 1. Interim removal of the right-sided ventriculostomy. No ventriculomegaly. Small blood collected in the third ventricle. 2. Decreasing right frontal subdural hemorrhage and air. Minimal parenchymal hemorrhage in the right frontal lobe unchanged. 3. About 1 mm of leftward midline shift, decreased. Jori Welsh MD on September 14, 2016 at 5:26 Board Certified Radiologist. This report was verified electronically.
[2016-09-14] MEDS: DEXAMETHASONE SOD PHOS 4 MG/ML VIAL IV PUSH SCH ×2 (05:38→17:06)
[2016-09-14] MEDS: DOCUSATE SODIUM 50 MG/SENNA 8.6 MG TAB PO SCH ×2 (08:13→20:58)
[2016-09-14] MEDS: DOCUSATE SODIUM 100 MG CAP PO SCH ×2 (08:13→20:58)
[2016-09-14] MEDS: LISINOPRIL 20 MG TAB PO SCH (08:14)
[2016-09-14] MEDS: PANTOPRAZOLE SOD 40 MG DELAYED RELEASE TAB PO SCH (08:14)
[2016-09-14] MEDS: HYDROCHLOROTHIAZIDE 25 MG TAB PO SCH (08:14)
[2016-09-14] MEDS: levETIRAcetam INJ 500 MG in SODIUM CHLORIDE 0.9% INJ 100 ML IV SCH ×2 (08:14→20:58)
[2016-09-14] MEDS: PANTOPRAZOLE SODIUM 40 MG VIAL IV SCH (09:00)
[2016-09-14] MEDS: SODIUM CHLORIDE 0.9% FLUSH 5 ML FLUSH IVF SCH ×2 (09:00→21:00)
--- NOTE | 2016-09-14 10:27 | HHI.NSPN ---
(Lorraine Mcgowan) Note Status Status: Progress Note (Lorraine Mcgowan) Interval History Interval History This is a 50-year-old [place] male with history of arterial hypertension alcohol use and tobacco use. He presents to [facility] ED with a 3-4 day history of headaches. He describes his headaches as bilateral frontal, 6 out of 10 described as throbbing. Not associated with photophobia or vision changes. he is taking Tylenol without relief. He's also been having gait and balance disorder not favoring either side. Denies any falls, striking his head or syncope. He had an elevated systolic blood pressure 204. CT head revealed 2.3 x 1.9 cm hyperdense mass the third ventricle obstructing lateral ventricles. Neurosurgical consultation was requested 09/13: POD 3, doing well, pt reports his confusion is better and thinking much clearer. Minimal surgical pain. 09/14: POD 4, stable overnight, f.u CT Head this morning shows improved ventriculomegaly. (Lorraine Mcgowan) Labs, Micro, & Vital Signs Results Date Time Temp Pulse Resp B/P Pulse Ox O2 Delivery O2 Flow Rate FiO2 09/14/16 08:00 68 09/14/16 08:00 98.0 95 16 136/90 96 09/14/16 06:00 40 09/14/16 04:00 98.0 45 18 138/84 96 09/14/16 04:00 44 09/14/16 02:00 50 09/14/16 00:00 98.2 47 18 125/82 94 09/14/16 00:00 47 09/13/16 22:00 60 09/13/16 20:00 61 09/13/16 20:00 98.0 58 14 128/86 94 09/13/16 19:49 96 21 09/13/16 19:00 98 Room Air 09/13/16 18:00 56 09/13/16 16:00 97.8 59 15 149/100 96 09/13/16 16:00 59 09/13/16 14:00 67 09/13/16 12:57 96 09/13/16 12:00 60 09/13/16 12:00 98.4 60 17 154/97 98 09/14/16 07:00 Intake Total 2060 ml Output Total 5530 ml Balance -3470 ml Constitutional Vital Signs Date Time Temp Pulse Resp B/P Pulse Ox O2 Delivery O2 Flow Rate FiO2 09/14/16 08:00 68 09/14/16 08:00 98.0 95 16 136/90 96 09/14/16 06:00 40 09/14/16 04:00 98.0 45 18 138/84 96 09/14/16 04:00 44 09/14/16 02:00 50 09/14/16 00:00 98.2 47 18 125/82 94 09/14/16 00:00 47 09/13/16 22:00 60 09/13/16 20:00 61 09/13/16 20:00 98.0 58 14 128/86 94 09/13/16 19:49 96 21 09/13/16 19:00 98 Room Air 09/13/16 18:00 56 09/13/16 16:00 97.8 59 15 149/100 96 09/13/16 16:00 59 09/13/16 14:00 67 09/13/16 12:57 96 09/13/16 12:00 60 09/13/16 12:00 98.4 60 17 154/97 98 09/14/16 07:00 Intake Total 2060 ml Output Total 5530 ml Balance -3470 ml (Lorraine Mcgowan) Review of Systems/Exam Exam Mr. Scott is alert, awake and oriented to time, place and person. Speech is fluent. Right wound is well demarcated, healing well. WESLEY drain with minimal drainage. Cranial nerve examination: pupils to be equal, round and reactive to light. Extra-ocular movements are intact. Facial motor and sensory function are normal and symmetrical. Neck is soft and supple with a good range of motion without pain. Muscle strength is normal in all muscle groups of both upper and lower extremities. Sensory examination is intact to light touch in both the upper and lower extremities. There is a bilateral plantar flexion response. Cerebellar examination is unremarkable, without deficits. Gait: ambulated with PT unassisted, no ataxia seen (Lorraine Mcgowan) Medications Current Medications Current Medications Medications (Trade) Dose Ordered Sig/Sandrine Route PRN Reason Start Time Stop Time Status Last Admin Dose Admin Acetaminophen (Tylenol) 650 mg Q6H PRN PO PAIN 1-2 AND/OR FEVER >101F 09/08/16 19:30 Pantoprazole Sodium (Protonix Inj) 40 mg DAILY IV 09/09/16 09:00 09/10/16 14:42 Miscellaneous Information 1 Q361D XX 09/08/16 19:30 Chlorhexidine Gluconate (Chlorhexidine 2% Cloth) Taper DAILY@04 TOP 09/09/16 04:00 09/05/17 03:59 09/14/16 04:00 Chlorhexidine Gluconate (Chlorhexidine 2% Cloth) 3 pack UNSCH PRN TOP HYGIENIC CARE 09/08/16 19:30 Senna/Docusate Sodium (Viridiana-Colace) 1 tab BID PO 09/08/16 21:00 09/14/16 08:13 Magnesium Hydroxide (Milk Of Magnesia Liq) 30 ml Q12H PRN PO MILD - MODERATE CONSTIPATION 09/08/16 19:30 Sennosides (Senokot) 17.2 mg Q12H PRN PO MODERATE - SEVERE CONSTIPATION 09/08/16 19:30 Bisacodyl (Dulcolax Supp) 10 mg DAILY PRN RECTAL SEVERE CONSITIPATION 09/08/16 19:30 Lactulose (Lactulose Liq) 30 ml DAILY PRN PO SEVERE CONSITIPATION 09/08/16 19:30 Labetalol HCl (Trandate Inj) 10 mg Q1HR PRN IV PUSH SBP>160, DBP>90, HR>65 09/08/16 19:30 09/11/16 23:06 Hydralazine HCl (Apresoline Inj) 10 mg Q1HR PRN IV PUSH SBP>160, DBP>90 09/08/16 19:30 09/12/16 17:06 Nitroglycerin 2 inch 2 inch Q6HR PRN TOPICAL SBP>160, DBP>90 09/08/16 19:30 09/08/16 22:38 Clevidipine 50 ml @ 0 mls/hr TITRATE IV 09/08/16 19:30 09/09/16 10:41 Levetriacetam/ Sodium Chloride (Keppra Inj/NS Inj) 105 ml @ 420 mls/hr Q12HR IV 09/08/16 21:00 09/14/16 08:14 Dextrose (D50w (Vial) Inj) 50 ml UNSCH PRN IV HYPOGLYCEMIA-SEE COMMENTS 09/08/16 19:45 Glucagon (Glucagon Inj) 1 mg UNSCH PRN OTHER HYPOGLYCEMIA-SEE COMMENTS 09/08/16 19:45 Enalaprilat (Vasotec Inj) 1.25 mg Q6H PRN IV PUSH SBP>160, DBP>90 09/08/16 23:30 09/13/16 05:13 Clonidine (Catapres) 0.1 mg Q6H PRN PO SBP>160, DBP>90, HR>65 09/08/16 23:30 09/13/16 17:29 Lisinopril (Prinivil) 20 mg DAILY PO 09/10/16 09:00 09/14/16 08:14 IV Flush (NS Flush) 2 ml UNSCH PRN IVF FLUSH AFTER USING IV ACCESS 09/10/16 10:00 IV Flush (NS Flush) 2 ml BID IVF 09/10/16 21:00 09/13/16 20:35 Docusate Sodium (Colace) 100 mg BID PO 09/10/16 21:00 09/14/16 08:13 Pantoprazole Sodium (Protonix) 40 mg DAILY PO 09/11/16 09:00 09/14/16 08:14 Ondansetron HCl (Zofran Inj) 4 mg Q6H PRN IV NAUSEA OR VOMITING 09/10/16 10:00 Calcium Gluconate 1 gm 1 gm UNSCH PRN IV SEE LABEL COMMENTS 09/10/16 10:00 Potassium Chloride 100 ml @ 50 mls/hr UNSCH PRN IV POTASSIUM LESS THAN 4 09/10/16 10:00 Magnesium Sulfate/ Sodium Chloride (Magnesium Sulfate Inj/NS Inj) 108 ml @ 108 mls/hr UNSCH PRN IV MAGNESIUM LESS THAN 2 09/10/16 10:00 Acetaminophen/ Hydrocodone Bitart ([place] 10-325 Mg) 1 tab Q4H PRN PO PAIN SCALE 1 TO 5 09/10/16 10:00 Acetaminophen/ Hydrocodone Bitart ([place] 10-325 Mg) 2 tab Q4H PRN PO PAIN SCALE 6 TO 10 09/10/16 10:00 Morphine Sulfate (Morphine Inj) 2 mg Q2H PRN IV PUSH PAIN SCALE 1 TO 6 09/10/16 10:00 Morphine Sulfate 4 mg 4 mg Q2H PRN IV PUSH PAIN SCALE 7 TO 10 09/10/16 10:00 09/10/16 22:03 Nicardipine HCl/ Sodium Chloride (Cardene Inj/NS 250 ml Inj) 260 ml @ 0 mls/hr TITRATE IV 09/10/16 14:00 Amlodipine Besylate (Norvasc) 10 mg DAILY PO 09/12/16 08:00 09/14/16 08:14 Dexamethasone Sodium Phosphate (Decadron Inj) 4 mg Q12H IV PUSH 09/12/16 18:00 09/14/16 05:38 Hydrochlorothiazide (Hydrodiuril) 25 mg DAILY PO 09/12/16 09:00 09/14/16 08:14 (Lorraine Mcgowan) Medical Decision Making MDM Remarks 50 year old male with 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 I reviewed and agree with the findings presented. I attest that I had a [id number] encounter with the patient on the same day, and personally performed and documented my assessment and findings in the medical record. (Dave Germain MD) Lorraine Mcgowan Sep 14, 2016 10:27 Dave Germain MD Sep 19, 2016 19:52
--- NOTE | 2016-09-14 12:44 | HHI.CCPN ---
Subjective Remarks/Hospital Course 09/08: This is a 50-year-old He[place] male. Date of admission 09/08/2016. Past include hypertension alcohol use and tobacco use. Patient presents to [facility] ED with a 3-4 day history of headaches described as bilateral frontal 6 out of 10 described as throbbing. Not associated with photophobia or vision changes. Patient is taking Tylenol without relief. He's also been having gait and balance disorder not favoring either side. Denies any falls, striking his head or syncope. When patient. [facility] of soon have an elevated systolic blood pressure 204. CT head revealed 2.3 x 1.9 cm hyperdense mass the third ventricle obstructing lateral ventricles. There is also transependymal edema adjacent to both ventricles. Dr. Germain/neurosurgery was notified and recommended ICU admission with consultation. We are asked to admit. Patient hemodynamically stable. Besides gait imbalance disorder which was not specifically evaluated no cranial nerve, strength or sensation deficits noted. 09/09: Resting in bed comfortably not in any acute distress. Complaining of some headache currently. Denies any chest pain or shortness of breath currently. 09/10: Resting comfortably in bed. Awaiting neurosurgery today by Dr. Germain for colloid cyst causing hydrocephalus. 09/11: Underwent Stereotactic, image-guided craniotomy, resection of colloid cyst by Dr. Germain on 09/10/2016. Extubated following procedure. This morning doing well. Has ventriculostomy in place with minimal blood-tinged CSF drainage. 09/12: Resting in bed. Ventriculostomy remains in place with blood-tinged drainage. Elevated blood pressure noted. 09/13: Resting comfortably in bed. Awake and alert. Denies any headache. Ventriculostomy remains in place. 09/14: Resting comfortably in bed. Vent plus removed yesterday. He ambulated in the hallways without a problem yesterday. Objective Vital Signs Date Time Temp Pulse Resp B/P Pulse Ox O2 Delivery O2 Flow Rate FiO2 09/14/16 08:00 68 09/14/16 08:00 98.0 16 136/90 96 09/13/16 19:49 21 09/13/16 19:00 Room Air 09/10/16 13:45 3 Intake and Output 7/10/17 7/10/17 7/11/17 08:00 16:00 00:00 Intake Total 1102 ml 480 ml 730 ml Output Total 1340 ml 2450 ml 1855 ml Balance -238 ml -1970 ml -1125 ml Result Diagram: 09/11/16 0415 09/11/16 0415 Imaging Last [address] 09/08/16 0000 Signed Impressions: Service Date/Time: Thursday, September 08, 2016 17:13 - CONCLUSION: 1. Large well-defined hyperdense mass involving the third ventricle measuring 2.3 x 1.9 cm. This has a characteristic appearance of a colloid cyst. This is causing hydronephrosis and obstruction to the lateral ventricles bilaterally. 2. There is transependymal edema bilaterally with effacement of the sulci along both cerebral hemispheres suggesting cerebral edema.. Roger Pratt MD Objective Remarks GENERAL: 50-year-old AA male, the resting in bed in no acute distress SKIN: Warm and dry. No rash HEAD: Atraumatic. Normocephalic. EYES: Pupils equal and round about 3-4 mm bilaterally and reactive. No scleral icterus. No injection or drainage. ENT: No nasal bleeding or discharge. Mucous membranes pink and moist. NECK: Trachea midline. No JVD. CARDIOVASCULAR: Rate a cardiac, RRR. S1, S2 no S4. Without murmur RESPIRATORY: Clear to auscultation. Breath sounds equal bilaterally. GASTROINTESTINAL: Abdomen soft, non-tender, nondistended. Hepatic and splenic margins not palpable. MUSCULOSKELETAL: Extremities : No edema, warm bilaterally NEUROLOGICAL: Awake and alert. Ventriculostomy in place, dressing over craniotomy site which is clean dry and intact. WESLEY drain in place No obvious cranial nerve deficits. Motor grossly within normal limits. Five out of 5 muscle strength in the arms and legs. No pronator drift. Normal speech. Gait was not assessed PSYCHIATRIC: Appropriate mood and affect; insight and judgment normal. 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 There is also transependymal edema adjacent to both ventricles. Dr. Germain/neurosurgery following and patient underwent MRI brain which confirmed diagnosis Acetaminophen for fever [place]/morphine for pain management Placed on Keppra 500 mg IV twice a day seizure prophylaxis Decadron secondary to brain edema 4 mill grams IV every 12 hours, stop on 09/14 s/p Stereotactic, image-guided craniotomy, resection of colloid cyst and ventriculostomy placement on 09/10. Ventriculostomy removed on 09/13. CV: Hypertension As needed labetalol/hydralazine/Nitropaste to keep systolic blood pressure less than 160. Off Cleviprex gtt. Continue lisinopril 20 mg daily. Added amlodipine 10 mg by mouth daily and HCTZ 25 mg by mouth daily on 09/12 Resp: Nasal cannula to maintain saturations greater than equal to 92% Incentive spirometry while awake GI: Advance by mouth diet if okay with neurosurgery Protonix for GI prophylaxis Bowel regimen with Viridiana-Colace twice a day initiated : No indication for Parra catheter Endo: Sliding scale insulin if indicated to maintain euglycemia Renal: Monitor and replete electrolytes, follow BUN/creatinine Accurate I's and O's Monitor urine output Heme: CBC within normal limits. Follow-up on coags ID: Monitor for infection MSK: PT evaluate and treat FEN: Replace electrolytes as clinically indicated Access - Utilize peripheral IV. Central line if indicated Prophylaxis - GI - Protonix - DVT - SCD/holding pharmacological prophylaxis in light of craniotomy till cleared by neurosurgery. Further recommendations per neurosurgery. Discussed with Dr. Germain. Patient will be transferred out of ICU to hospitalist service. . Felipe Lundberg MD Sep 14, 2016 12:44
[2016-09-14] MEDS: ACETAMINOPHEN/HYDROcodone 325 MG/10 MG TAB PO PRN (17:06)
[2016-09-14] MEDS: INSULIN NovoLIN REGULAR SUPPLEMENTAL SCALE SQ SCH (21:00)
[2016-09-15 00:19] VITALS: BP 122/72; PULSE 52; RESP 17; TEMP 97.6; O2SAT 95
[2016-09-15] MEDS: CHLORHEXIDINE GLUCONATE 2 % 1 PACK (2 CLOTHS) TOP SCH (02:54)
[2016-09-15 03:44] VITALS: BP 120/76; PULSE 56; RESP 17; TEMP 98.5; O2SAT 97
[2016-09-15] MEDS: DEXAMETHASONE SOD PHOS 4 MG/ML VIAL IV PUSH SCH (05:33)
[2016-09-15] MEDS: INSULIN NovoLIN REGULAR SUPPLEMENTAL SCALE SQ SCH ×4 (05:34→20:24)
[2016-09-15] MEDS: LISINOPRIL 20 MG TAB PO SCH (08:12)
[2016-09-15] MEDS: DOCUSATE SODIUM 100 MG CAP PO SCH ×2 (08:12→20:25)
[2016-09-15] MEDS: HYDROCHLOROTHIAZIDE 25 MG TAB PO SCH (08:12)
[2016-09-15] MEDS: PANTOPRAZOLE SOD 40 MG DELAYED RELEASE TAB PO SCH (08:12)
[2016-09-15] MEDS: DOCUSATE SODIUM 50 MG/SENNA 8.6 MG TAB PO SCH ×2 (08:12→20:25)
[2016-09-15] MEDS: PANTOPRAZOLE SODIUM 40 MG VIAL IV SCH (08:13)
[2016-09-15] MEDS: levETIRAcetam INJ 500 MG in SODIUM CHLORIDE 0.9% INJ 100 ML IV SCH (08:13)
[2016-09-15] MEDS: SODIUM CHLORIDE 0.9% FLUSH 5 ML FLUSH IVF SCH ×2 (08:13→20:25)
[2016-09-15] MEDS: ACETAMINOPHEN/HYDROcodone 325 MG/10 MG TAB PO PRN ×3 (08:14→17:16)
[2016-09-15 08:43] VITALS: BP 122/78; PULSE 52; RESP 18; TEMP 97.5; O2SAT 99
--- NOTE | 2016-09-15 11:55 | HHI.NSPN ---
(Lorraine Mcgowan) Note Status Status: Progress Note (Lorraine Mcgowan) Interval History Interval History This is a 50-year-old He[place] male with history of arterial hypertension alcohol use and tobacco use. He presents to [facility] ED with a 3-4 day history of headaches. He describes his headaches as bilateral frontal, 6 out of 10 described as throbbing. Not associated with photophobia or vision changes. he is taking Tylenol without relief. He's also been having gait and balance disorder not favoring either side. Denies any falls, striking his head or syncope. He had an elevated systolic blood pressure 204. CT head revealed 2.3 x 1.9 cm hyperdense mass the third ventricle obstructing lateral ventricles. Neurosurgical consultation was requested 09/13: POD 3, doing well, pt reports his confusion is better and thinking much clearer. Minimal surgical pain. 09/14: POD 4, stable overnight, f.u CT Head this morning shows improved ventriculomegaly. 09/15: POD 5, c/o of mild headaches, tolerable, otherwise doing well. (Lorraine Mcgowan) Labs, Micro, & Vital Signs Results Date Time Temp Pulse Resp B/P Pulse Ox O2 Delivery O2 Flow Rate FiO2 09/15/16 08:43 97.5 52 18 122/78 99 09/15/16 03:44 98.5 56 17 120/76 97 09/15/16 00:19 97.6 52 17 122/72 95 09/14/16 19:59 97.8 50 17 138/85 94 09/14/16 19:00 20 09/14/16 16:00 98.0 54 18 136/86 09/14/16 12:00 98.6 65 18 156/0 09/15/16 07:00 Intake Total 960 ml Output Total 1400 ml Balance -440 ml Constitutional Vital Signs Date Time Temp Pulse Resp B/P Pulse Ox O2 Delivery O2 Flow Rate FiO2 09/15/16 08:43 97.5 52 18 122/78 99 09/15/16 03:44 98.5 56 17 120/76 97 09/15/16 00:19 97.6 52 17 122/72 95 09/14/16 19:59 97.8 50 17 138/85 94 09/14/16 19:00 20 09/14/16 16:00 98.0 54 18 136/86 09/14/16 12:00 98.6 65 18 156/0 09/15/16 07:00 Intake Total 960 ml Output Total 1400 ml Balance -440 ml (Lorraine Mcgowan) Review of Systems/Exam Exam Mr. Scott is alert, awake and oriented to time, place and person. Speech is fluent. Right wound is well demarcated, healing well without signs of infection. Previous WESLEY drain site dry, healing well no drainage seen. Cranial nerve examination: pupils to be equal, round and reactive to light. Extra-ocular movements are intact. Facial motor and sensory function are normal and symmetrical. Neck is soft and supple Muscle strength is normal in all muscle groups of both upper and lower extremities. Sensory examination is intact to light touch in both the upper and lower extremities. There is a bilateral plantar flexion response. Cerebellar examination is unremarkable, without deficits. Gait: ambulated with PT unassisted, no ataxia seen (Lorraine Mcgowan) Medications Current Medications Current Medications Medications (Trade) Dose Ordered Sig/Sandrine Route PRN Reason Start Time Stop Time Status Last Admin Dose Admin Acetaminophen (Tylenol) 650 mg Q6H PRN PO PAIN 1-2 AND/OR FEVER >101F 09/08/16 19:30 Pantoprazole Sodium (Protonix Inj) 40 mg DAILY IV 09/09/16 09:00 09/15/16 08:13 Miscellaneous Information 1 Q361D XX 09/08/16 19:30 Chlorhexidine Gluconate (Chlorhexidine 2% Cloth) Taper DAILY@04 TOP 09/09/16 04:00 09/05/17 03:59 09/14/16 04:00 Chlorhexidine Gluconate (Chlorhexidine 2% Cloth) 3 pack UNSCH PRN TOP HYGIENIC CARE 09/08/16 19:30 Senna/Docusate Sodium (Viridiana-Colace) 1 tab BID PO 09/08/16 21:00 09/15/16 08:12 Magnesium Hydroxide (Milk Of Magnesia Liq) 30 ml Q12H PRN PO MILD - MODERATE CONSTIPATION 09/08/16 19:30 Sennosides (Senokot) 17.2 mg Q12H PRN PO MODERATE - SEVERE CONSTIPATION 09/08/16 19:30 Bisacodyl (Dulcolax Supp) 10 mg DAILY PRN RECTAL SEVERE CONSITIPATION 09/08/16 19:30 Lactulose (Lactulose Liq) 30 ml DAILY PRN PO SEVERE CONSITIPATION 09/08/16 19:30 Labetalol HCl (Trandate Inj) 10 mg Q1HR PRN IV PUSH SBP>160, DBP>90, HR>65 09/08/16 19:30 09/11/16 23:06 Hydralazine HCl (Apresoline Inj) 10 mg Q1HR PRN IV PUSH SBP>160, DBP>90 09/08/16 19:30 09/12/16 17:06 Nitroglycerin 2 inch 2 inch Q6HR PRN TOPICAL SBP>160, DBP>90 09/08/16 19:30 09/08/16 22:38 Clevidipine 50 ml @ 0 mls/hr TITRATE IV 09/08/16 19:30 09/09/16 10:41 Levetriacetam/ Sodium Chloride (Keppra Inj/NS Inj) 105 ml @ 420 mls/hr Q12HR IV 09/08/16 21:00 09/15/16 08:13 Dextrose (D50w (Vial) Inj) 50 ml UNSCH PRN IV HYPOGLYCEMIA-SEE COMMENTS 09/08/16 19:45 Glucagon (Glucagon Inj) 1 mg UNSCH PRN OTHER HYPOGLYCEMIA-SEE COMMENTS 09/08/16 19:45 Enalaprilat (Vasotec Inj) 1.25 mg Q6H PRN IV PUSH SBP>160, DBP>90 09/08/16 23:30 09/13/16 05:13 Clonidine (Catapres) 0.1 mg Q6H PRN PO SBP>160, DBP>90, HR>65 09/08/16 23:30 09/13/16 17:29 Lisinopril (Prinivil) 20 mg DAILY PO 09/10/16 09:00 09/15/16 08:12 IV Flush (NS Flush) 2 ml UNSCH PRN IVF FLUSH AFTER USING IV ACCESS 09/10/16 10:00 IV Flush (NS Flush) 2 ml BID IVF 09/10/16 21:00 09/15/16 08:13 Docusate Sodium (Colace) 100 mg BID PO 09/10/16 21:00 09/15/16 08:12 Pantoprazole Sodium (Protonix) 40 mg DAILY PO 09/11/16 09:00 09/15/16 08:12 Ondansetron HCl (Zofran Inj) 4 mg Q6H PRN IV NAUSEA OR VOMITING 09/10/16 10:00 Calcium Gluconate 1 gm 1 gm UNSCH PRN IV SEE LABEL COMMENTS 09/10/16 10:00 Potassium Chloride 100 ml @ 50 mls/hr UNSCH PRN IV POTASSIUM LESS THAN 4 09/10/16 10:00 Magnesium Sulfate/ Sodium Chloride (Magnesium Sulfate Inj/NS Inj) 108 ml @ 108 mls/hr UNSCH PRN IV MAGNESIUM LESS THAN 2 09/10/16 10:00 Acetaminophen/ Hydrocodone Bitart ([place] 10-325 Mg) 1 tab Q4H PRN PO PAIN SCALE 1 TO 5 09/10/16 10:00 09/15/16 08:14 Acetaminophen/ Hydrocodone Bitart ([place] 10-325 Mg) 2 tab Q4H PRN PO PAIN SCALE 6 TO 10 09/10/16 10:00 Morphine Sulfate (Morphine Inj) 2 mg Q2H PRN IV PUSH PAIN SCALE 1 TO 6 09/10/16 10:00 Morphine Sulfate 4 mg 4 mg Q2H PRN IV PUSH PAIN SCALE 7 TO 10 09/10/16 10:00 09/10/16 22:03 Nicardipine HCl/ Sodium Chloride (Cardene Inj/NS 250 ml Inj) 260 ml @ 0 mls/hr TITRATE IV 09/10/16 14:00 Amlodipine Besylate (Norvasc) 10 mg DAILY PO 09/12/16 08:00 09/15/16 08:12 Dexamethasone Sodium Phosphate (Decadron Inj) 4 mg Q12H IV PUSH 09/12/16 18:00 09/15/16 05:33 Hydrochlorothiazide (Hydrodiuril) 25 mg DAILY PO 09/12/16 09:00 09/15/16 08:12 (Lorraine Mcgowan) Medical Decision Making MDM Remarks 50 year old male with 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 I reviewed and agree with the findings presented. I attest that I had a [id number] encounter with the patient on the same day, and personally performed and documented my assessment and findings in the medical record. (aDve Germain MD) Lorraine Mcgowan Sep 15, 2016 11:55 Dave Germain MD Sep 20, 2016 12:22
[2016-09-15 12:30] VITALS: BP 110/71; PULSE 54; RESP 18; TEMP 96.5; O2SAT 99
--- NOTE | 2016-09-15 14:33 | HHI.PR ---
Subjective Remarks The patient was resting in bed comfortably. He did complain of a bit of a headache but said the pill he received earlier helped. He says he has been ambulating but still feels a little bit weak. He says he has been tolerating a diet. He has been having bowel movements. Objective Vitals Vital Signs Date Time Temp Pulse Resp B/P Pulse Ox O2 Delivery O2 Flow Rate FiO2 09/15/16 12:30 96.5 54 18 110/71 99 09/15/16 08:43 97.5 52 18 122/78 99 09/15/16 03:44 98.5 56 17 120/76 97 09/15/16 00:19 97.6 52 17 122/72 95 09/14/16 19:59 97.8 50 17 138/85 94 09/14/16 19:00 20 09/14/16 16:00 98.0 54 18 136/86 I/O 09/14/16 09/14/16 09/14/16 09/15/16 09/15/16 09/15/16 07:00 15:00 23:00 07:00 15:00 23:00 Intake Total 850 ml 600 ml 360 ml 480 ml Output Total 1225 ml 1400 ml Balance -375 ml -800 ml 360 ml 480 ml Intake Oral 850 ml 600 ml 360 ml 480 ml IV Total 0 ml Output Urine Total 1200 ml 1400 ml Drainage Total 25 ml # Voids 4 3 # Bowel Movements 0 0 Result Diagram: 09/11/16 0415 09/11/16 0415 Imaging Last Impressions Head CT 09/14/16 0800 Signed Impressions: Service Date/Time: Wednesday, September 14, 2016 04:59 - CONCLUSION: 1. Interim removal of the right-sided ventriculostomy. No ventriculomegaly. Small blood collected in the third ventricle. 2. Decreasing right frontal subdural hemorrhage and air. Minimal parenchymal hemorrhage in the right frontal lobe unchanged. 3. About 1 mm of leftward midline shift, decreased. Jori Welsh MD Chest X-Ray 09/10/16 0000 Signed Impressions: Service Date/Time: Saturday, September 10, 2016 13:10 - CONCLUSION: 1. Right central line in good position. No pneumothorax. 2. The lungs are grossly clear. Roger Pratt MD Brain MRI 09/09/16 0000 Signed Impressions: Service Date/Time: September 15:09 - CONCLUSION: There is a bilobed mass is centered at the foramen of Frausto measuring up to 3.1 cm. 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 These findings were discussed with Dr. Germain. Jori Franklin MD Objective Remarks GENERAL: Resting in bed, in no acute distress SKIN: Warm and dry. No rash HEAD: Atraumatic. Normocephalic. EYES: Pupils equal and round about 3-4 mm bilaterally and reactive. No scleral icterus. No injection or drainage. ENT: No nasal bleeding or discharge. Mucous membranes pink and moist. NECK: Trachea midline. No JVD. CARDIOVASCULAR: Rate a cardiac, RRR. S1, S2 no S4. Without murmur RESPIRATORY: Clear to auscultation. Breath sounds equal bilaterally. GASTROINTESTINAL: Abdomen soft, non-tender, nondistended. Hepatic and splenic margins not palpable. MUSCULOSKELETAL: No edema, warm bilaterally. NEUROLOGICAL: Awake and alert. No obvious cranial nerve deficits. Motor grossly within normal limits. Five out of 5 muscle strength in the arms and legs. No pronator drift. Normal speech. Gait was not assessed PSYCHIATRIC: Appropriate mood and affect; insight and judgment normal. Medications and IVs Current Medications Medications (Trade) Dose Ordered Sig/Sandrine Route Start Time Stop Time Status Last Admin (Tylenol) 650 mg Q6H PRN PO 09/08/16 19:30 (Protonix Inj) 40 mg DAILY IV 09/09/16 09:00 09/15/16 08:13 Miscellaneous Information 1 Q361D XX 09/08/16 19:30 (Chlorhexidine 2% Cloth) Taper DAILY@04 TOP 09/09/16 04:00 09/05/17 03:59 09/14/16 04:00 (Chlorhexidine 2% Cloth) 3 pack UNSCH PRN TOP 09/08/16 19:30 (Viridiana-Colace) 1 tab BID PO 09/08/16 21:00 09/15/16 08:12 (Milk Of Magnesia Liq) 30 ml Q12H PRN PO 09/08/16 19:30 (Senokot) 17.2 mg Q12H PRN PO 09/08/16 19:30 (Dulcolax Supp) 10 mg DAILY PRN RECTAL 09/08/16 19:30 (Lactulose Liq) 30 ml DAILY PRN PO 09/08/16 19:30 (Trandate Inj) 10 mg Q1HR PRN IV PUSH 09/08/16 19:30 09/11/16 23:06 (Apresoline Inj) 10 mg Q1HR PRN IV PUSH 09/08/16 19:30 09/12/16 17:06 Nitroglycerin 2 inch 2 inch Q6HR PRN TOPICAL 09/08/16 19:30 09/08/16 22:38 Clevidipine 50 ml @ 0 mls/hr TITRATE IV 09/08/16 19:30 09/09/16 10:41 (Keppra Inj/NS Inj) 105 ml @ 420 mls/hr Q12HR IV 09/08/16 21:00 09/15/16 08:13 (D50w (Vial) Inj) 50 ml UNSCH PRN IV 09/08/16 19:45 (Glucagon Inj) 1 mg UNSCH PRN OTHER 09/08/16 19:45 (Vasotec Inj) 1.25 mg Q6H PRN IV PUSH 09/08/16 23:30 09/13/16 05:13 (Catapres) 0.1 mg Q6H PRN PO 09/08/16 23:30 09/13/16 17:29 (Prinivil) 20 mg DAILY PO 09/10/16 09:00 09/15/16 08:12 (NS Flush) 2 ml UNSCH PRN IVF 09/10/16 10:00 (NS Flush) 2 ml BID IVF 09/10/16 21:00 09/15/16 08:13 (Colace) 100 mg BID PO 09/10/16 21:00 09/15/16 08:12 (Protonix) 40 mg DAILY PO 09/11/16 09:00 09/15/16 08:12 (Zofran Inj) 4 mg Q6H PRN IV 09/10/16 10:00 Calcium Gluconate 1 gm 1 gm UNSCH PRN IV 09/10/16 10:00 Potassium Chloride 100 ml @ 50 mls/hr UNSCH PRN IV 09/10/16 10:00 (Magnesium Sulfate Inj/NS Inj) 108 ml @ 108 mls/hr UNSCH PRN IV 09/10/16 10:00 ([place] 10-325 Mg) 1 tab Q4H PRN PO 09/10/16 10:00 09/15/16 12:50 ([place] 10-325 Mg) 2 tab Q4H PRN PO 09/10/16 10:00 (Morphine Inj) 2 mg Q2H PRN IV PUSH 09/10/16 10:00 Morphine Sulfate 4 mg 4 mg Q2H PRN IV PUSH 09/10/16 10:00 09/10/16 22:03 (Cardene Inj/NS 250 ml Inj) 260 ml @ 0 mls/hr TITRATE IV 09/10/16 14:00 (Norvasc) 10 mg DAILY PO 09/12/16 08:00 09/15/16 08:12 (Decadron Inj) 4 mg Q12H IV PUSH 09/12/16 18:00 09/15/16 05:33 (Hydrodiuril) 25 mg DAILY PO 09/12/16 09:00 09/15/16 08:12 A/P Problem List: (1) Brain mass ICD Code: G93.9 Status: Acute (2) Hypertension ICD Code: I10 Status: Acute (3) Tobacco abuse ICD Code: Z72.0 Status: Acute (4) Alcohol use ICD Code: Z78.9 Status: Acute Assessment and Plan 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 CT head 09/08 revealed a 2.3 x 1.8 cm hyperdense mass at the third ventricle causing obstruction of the lateral ventricles/hydronephrosis. There is also transependymal edema adjacent to both ventricles. Dr. Germain/neurosurgery following and patient underwent MRI brain which confirmed diagnosis. Started on Decadron secondary to brain edema 4 mg IV every 12 hours. S/p Stereotactic, image-guided craniotomy, resection of colloid cyst and ventriculostomy placement on 09/10. Ventriculostomy removed on 09/13. Repeat head CT 09/14: Interim removal of the right-sided ventriculostomy; No ventriculomegaly; Small blood collected in the third ventricle; Decreasing right frontal subdural hemorrhage and air; Minimal parenchymal hemorrhage in the right frontal lobe unchanged; About 1 mm of leftward midline shift, decreased. Cleared for discharge by NS. Pathology without evidence of malignancy. - Acetaminophen for fever; [place]/morphine for pain management. - Placed on Keppra 500 mg twice a day seizure prophylaxis. - PT/ OT. Hypertension Blood pressure currently controlled, was elevated earlier on. - Continue lisinopril 20 mg daily, amlodipine 10 mg by mouth daily and HCTZ 25 mg by mouth daily. Hypernatremia Na level was 150. - Monitor and replete electrolytes as needed. - encourage PO intake. Prophylaxis: SCD/ holding pharmacological prophylaxis in light of craniotomy till cleared by neurosurgery. Discharge Planning Anticipate discharge with home health care in the morning Problem Qualifiers (1) Hypertension: Qualified Code: I10 - Essential hypertension Jarek Zamora DO Sep 15, 2016 14:33
[2016-09-15 14:58] LABS: HEMATOCRIT 45.2 % (39.0-51.0); MEAN CELL VOLUME 85.9 FL (80.0-100.0); MEAN CORPUSCULAR HEMOGLOBIN 28.1 PG (27.0-34.0); MEAN CORPUSCULAR HGB CONC 32.7 % (32.0-36.0); PLATELET COUNT 332 TH/MM3 (150-450); RED BLOOD COUNT 5.26 MIL/MM3 (4.50-5.90); RED CELL DISTRIBUTION WIDTH 14.3 % (11.6-17.2); REVIEW FLAG FINAL; WHITE BLOOD COUNT 14.7 TH/MM3 (4.0-11.0)
[2016-09-15 15:16] LABS: BICARBONATE 27.4 MEQ/L (21.0-32.0); POTASSIUM 4.1 MEQ/L (3.5-5.1)
[2016-09-15 16:06] VITALS: BP 135/68; PULSE 55; RESP 18; TEMP 95.9; O2SAT 95
[2016-09-15 20:00] VITALS: BP 115/74; PULSE 57; RESP 18; TEMP 96.2; O2SAT 98
[2016-09-15] MEDS: levETIRAcetam 500 MG TAB PO SCH (20:25)
[2016-09-16] VITALS: BP 112/65; PULSE 60; RESP 22; TEMP 97.9; O2SAT 77
[2016-09-16 04:00] VITALS: BP 106/67; PULSE 61; RESP 18; TEMP 98.7; O2SAT 98
[2016-09-16] MEDS: ACETAMINOPHEN/HYDROcodone 325 MG/10 MG TAB PO PRN ×2 (04:44→17:25)
[2016-09-16] MEDS: INSULIN NovoLIN REGULAR SUPPLEMENTAL SCALE SQ SCH (06:12)
[2016-09-16 08:00] VITALS: BP 127/81; PULSE 70; RESP 20; TEMP 97.4; O2SAT 97
[2016-09-16] MEDS: SODIUM CHLORIDE 0.9% FLUSH 5 ML FLUSH IVF SCH ×2 (09:00→21:00)
[2016-09-16] MEDS: DOCUSATE SODIUM 50 MG/SENNA 8.6 MG TAB PO SCH ×2 (09:22→21:00)
[2016-09-16] MEDS: PANTOPRAZOLE SOD 40 MG DELAYED RELEASE TAB PO SCH (09:22)
[2016-09-16] MEDS: levETIRAcetam 500 MG TAB PO SCH ×2 (09:22→21:00)
[2016-09-16] MEDS: LISINOPRIL 20 MG TAB PO SCH (09:23)
[2016-09-16] MEDS: HYDROCHLOROTHIAZIDE 25 MG TAB PO SCH (09:23)
[2016-09-16] MEDS: DOCUSATE SODIUM 100 MG CAP PO SCH ×2 (09:24→21:00)
--- NOTE | 2016-09-16 10:27 | HHI.NSPN ---
(Lorraine Mcgowan) Note Status Status: Progress Note (Lorraine Mcgowan) Interval History Interval History This is a 50-year-old [place] male with history of arterial hypertension alcohol use and tobacco use. He presents to [facility] with a 3-4 day history of headaches. He describes his headaches as bilateral frontal, 6 out of 10 described as throbbing. Not associated with photophobia or vision changes. he is taking Tylenol without relief. He's also been having gait and balance disorder not favoring either side. Denies any falls, striking his head or syncope. He had an elevated systolic blood pressure 204. CT head revealed 2.3 x 1.9 cm hyperdense mass the third ventricle obstructing lateral ventricles. Neurosurgical consultation was requested 09/13: POD 3, doing well, pt reports his confusion is better and thinking much clearer. Minimal surgical pain. 09/14: POD 4, stable overnight, f.u CT Head this morning shows improved ventriculomegaly. 09/15: POD 5, c/o of mild headaches, tolerable, otherwise doing well. 09/16: POD 6, c/o of increased headaches today, a stat CT Head obtained, showed possible slight increased in ventricle size compared to 09/14 CT Head. (Lorraine Mcgowan) Labs, Micro, & Vital Signs Results Date Time Temp Pulse Resp B/P Pulse Ox O2 Delivery O2 Flow Rate FiO2 09/16/16 08:00 97.4 70 20 127/81 97 09/16/16 05:44 20 09/16/16 04:00 98.7 61 18 106/67 98 09/16/16 00:00 97.9 60 22 112/65 77 09/15/16 20:00 96.2 57 18 115/74 98 09/15/16 16:06 95.9 55 18 135/68 95 09/15/16 12:30 96.5 54 18 110/71 99 09/16/16 07:00 Intake Total 480 ml Balance 480 ml Constitutional Vital Signs Date Time Temp Pulse Resp B/P Pulse Ox O2 Delivery O2 Flow Rate FiO2 09/16/16 08:00 97.4 70 20 127/81 97 09/16/16 05:44 20 09/16/16 04:00 98.7 61 18 106/67 98 09/16/16 00:00 97.9 60 22 112/65 77 09/15/16 20:00 96.2 57 18 115/74 98 09/15/16 16:06 95.9 55 18 135/68 95 09/15/16 12:30 96.5 54 18 110/71 99 09/16/16 07:00 Intake Total 480 ml Balance 480 ml (Lorraine Mcgowan) Review of Systems/Exam Exam Mr. Scott is alert and oriented to time, place and person. Speech is fluent. Right wound is well demarcated, healing well without signs of infection. Cranial nerve examination: pupils equal, round and reactive to light. Extra- ocular movements are intact. Facial motor and sensory function are normal and symmetrical. Neck is soft and supple Muscle strength is normal in all muscle groups of both upper and lower extremities. Sensory examination is intact to light touch in both the upper and lower extremities. There is a bilateral plantar flexion response. Cerebellar examination is unremarkable, without deficits. (Lorraine Mcgowan) Medications Current Medications Current Medications Medications (Trade) Dose Ordered Sig/Sandrine Route PRN Reason Start Time Stop Time Status Last Admin Dose Admin Acetaminophen (Tylenol) 650 mg Q6H PRN PO PAIN 1-2 AND/OR FEVER >101F 09/08/16 19:30 Miscellaneous Information 1 Q361D XX 09/08/16 19:30 Senna/Docusate Sodium (Viridiana-Colace) 1 tab BID PO 09/08/16 21:00 09/16/16 09:22 Magnesium Hydroxide (Milk Of Magnesia Liq) 30 ml Q12H PRN PO MILD - MODERATE CONSTIPATION 09/08/16 19:30 Sennosides (Senokot) 17.2 mg Q12H PRN PO MODERATE - SEVERE CONSTIPATION 09/08/16 19:30 Bisacodyl (Dulcolax Supp) 10 mg DAILY PRN RECTAL SEVERE CONSITIPATION 09/08/16 19:30 Lactulose (Lactulose Liq) 30 ml DAILY PRN PO SEVERE CONSITIPATION 09/08/16 19:30 Nitroglycerin (Nitroglycerin 2% Oint) 2 inch Q6HR PRN TOPICAL SBP>160, DBP>90 09/08/16 19:30 09/08/16 22:38 Dextrose (D50w (Vial) Inj) 50 ml UNSCH PRN IV HYPOGLYCEMIA-SEE COMMENTS 09/08/16 19:45 Glucagon (Glucagon Inj) 1 mg UNSCH PRN OTHER HYPOGLYCEMIA-SEE COMMENTS 09/08/16 19:45 Enalaprilat (Vasotec Inj) 1.25 mg Q6H PRN IV PUSH SBP>160, DBP>90 09/08/16 23:30 09/13/16 05:13 Clonidine (Catapres) 0.1 mg Q6H PRN PO SBP>160, DBP>90, HR>65 09/08/16 23:30 09/13/16 17:29 Lisinopril (Prinivil) 20 mg DAILY PO 09/10/16 09:00 09/16/16 09:23 IV Flush (NS Flush) 2 ml UNSCH PRN IVF FLUSH AFTER USING IV ACCESS 09/10/16 10:00 IV Flush (NS Flush) 2 ml BID IVF 09/10/16 21:00 09/16/16 09:00 Docusate Sodium (Colace) 100 mg BID PO 09/10/16 21:00 09/16/16 09:24 Pantoprazole Sodium (Protonix) 40 mg DAILY PO 09/11/16 09:00 09/16/16 09:22 Ondansetron HCl (Zofran Inj) 4 mg Q6H PRN IV NAUSEA OR VOMITING 09/10/16 10:00 Acetaminophen/ Hydrocodone Bitart ([place] 10-325 Mg) 1 tab Q4H PRN PO PAIN SCALE 1 TO 5 09/10/16 10:00 09/15/16 17:16 Acetaminophen/ Hydrocodone Bitart ([place] 10-325 Mg) 2 tab Q4H PRN PO PAIN SCALE 6 TO 10 09/10/16 10:00 09/16/16 04:44 Amlodipine Besylate (Norvasc) 10 mg DAILY PO 09/12/16 08:00 09/16/16 09:23 Hydrochlorothiazide (Hydrodiuril) 25 mg DAILY PO 09/12/16 09:00 09/16/16 09:23 Levetriacetam (Keppra) 500 mg Q12HR PO 09/15/16 21:00 09/16/16 09:22 (Lorraine Mcgowan) Medical Decision Making MDM Remarks 50 year old male with 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, most likely colloid cyst, final pathology reports no malignancy s/p right craniotomy with resection of intraventricular mass 09/10/16, POD 6 increasing headaches, CT Brain today with possible slight increased ventricle size compared to 09/14 (Lorraine Mcgowan) Plan Plan Remarks stat CT Head today reviewed, cont nonsurgical management for now, hold discharge, obtain f/u CT Head in a few days to assess further increased in ventricle size dw nursing (Lorraine Mcgowan) Attending Statement The exam, history, and the medical decision-making described in the above note were completed with the assistance of the mid-level provider. I reviewed and agree with the findings presented. I attest that I had a [id number] encounter with the patient on the same day, and personally performed and documented my assessment and findings in the medical record. (Dave Germain MD) Lorraine Mcgowan Sep 16, 2016 10:27 Dave Germain MD Sep 20, 2016 12:27
--- NOTE | 2016-09-16 10:30 | HHI.PR ---
Subjective Remarks The pt was waiting to go for a repeat CT of his head. He continues to have a bad headache. Discussed with nursing. Objective Vitals Vital Signs Date Time Temp Pulse Resp B/P Pulse Ox O2 Delivery O2 Flow Rate FiO2 09/16/16 08:00 97.4 70 20 127/81 97 09/16/16 05:44 20 09/16/16 04:00 98.7 61 18 106/67 98 09/16/16 00:00 97.9 60 22 112/65 77 09/15/16 20:00 96.2 57 18 115/74 98 09/15/16 16:06 95.9 55 18 135/68 95 09/15/16 12:30 96.5 54 18 110/71 99 I/O 09/15/16 09/15/16 09/15/16 09/16/16 09/16/16 09/16/16 07:00 15:00 23:00 07:00 15:00 23:00 Intake Total 360 ml 480 ml 0 ml 0 ml Balance 360 ml 480 ml 0 ml 0 ml Intake Oral 360 ml 480 ml IV Total 0 ml 0 ml # Voids 4 3 # Bowel Movements 0 Result Diagram: 09/15/16 1350 09/15/16 1350 Imaging Last Impressions Head CT 09/14/16 0800 Signed Impressions: Service Date/Time: Wednesday, September 14, 2016 04:59 - CONCLUSION: 1. Interim removal of the right-sided ventriculostomy. No ventriculomegaly. Small blood collected in the third ventricle. 2. Decreasing right frontal subdural hemorrhage and air. Minimal parenchymal hemorrhage in the right frontal lobe unchanged. 3. About 1 mm of leftward midline shift, decreased. Jori Welsh MD Chest X-Ray 09/10/16 0000 Signed Impressions: Service Date/Time: Saturday, September 10, 2016 13:10 - CONCLUSION: 1. Right central line in good position. No pneumothorax. 2. The lungs are grossly clear. Roger Pratt MD Brain MRI 09/09/16 0000 Signed Impressions: Service Date/Time: September 15:09 - CONCLUSION: There is a bilobed mass is centered at the foramen of Frausto measuring up to 3.1 cm. 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 These findings were discussed with Dr. Germain. Jori Franklin MD Objective Remarks GENERAL: Resting in bed, in no acute distress SKIN: Warm and dry. No rash HEAD: Atraumatic. Normocephalic. EYES: Pupils equal and round about 3-4 mm bilaterally and reactive. No scleral icterus. No injection or drainage. ENT: No nasal bleeding or discharge. Mucous membranes pink and moist. NECK: Trachea midline. No JVD. CARDIOVASCULAR: Rate a cardiac, RRR. S1, S2 no S4. Without murmur RESPIRATORY: Clear to auscultation. Breath sounds equal bilaterally. GASTROINTESTINAL: Abdomen soft, non-tender, nondistended. Hepatic and splenic margins not palpable. MUSCULOSKELETAL: No edema, warm bilaterally. NEUROLOGICAL: Awake and alert. No obvious cranial nerve deficits. Motor grossly within normal limits. Five out of 5 muscle strength in the arms and legs. No pronator drift. Normal speech. Gait was not assessed PSYCHIATRIC: Appropriate mood and affect; insight and judgment normal. Medications and IVs Current Medications Medications (Trade) Dose Ordered Sig/Sandrine Route Start Time Stop Time Status Last Admin (Tylenol) 650 mg Q6H PRN PO 09/08/16 19:30 Miscellaneous Information 1 Q361D XX 09/08/16 19:30 (Viridiana-Colace) 1 tab BID PO 09/08/16 21:00 09/16/16 09:22 (Milk Of Magnesia Liq) 30 ml Q12H PRN PO 09/08/16 19:30 (Senokot) 17.2 mg Q12H PRN PO 09/08/16 19:30 (Dulcolax Supp) 10 mg DAILY PRN RECTAL 09/08/16 19:30 (Lactulose Liq) 30 ml DAILY PRN PO 09/08/16 19:30 (Nitroglycerin 2% Oint) 2 inch Q6HR PRN TOPICAL 09/08/16 19:30 09/08/16 22:38 (D50w (Vial) Inj) 50 ml UNSCH PRN IV 09/08/16 19:45 (Glucagon Inj) 1 mg UNSCH PRN OTHER 09/08/16 19:45 (Vasotec Inj) 1.25 mg Q6H PRN IV PUSH 09/08/16 23:30 09/13/16 05:13 (Catapres) 0.1 mg Q6H PRN PO 09/08/16 23:30 09/13/16 17:29 (Prinivil) 20 mg DAILY PO 09/10/16 09:00 09/16/16 09:23 (NS Flush) 2 ml UNSCH PRN IVF 09/10/16 10:00 (NS Flush) 2 ml BID IVF 09/10/16 21:00 09/16/16 09:00 (Colace) 100 mg BID PO 09/10/16 21:00 09/16/16 09:24 (Protonix) 40 mg DAILY PO 09/11/16 09:00 09/16/16 09:22 (Zofran Inj) 4 mg Q6H PRN IV 09/10/16 10:00 ([place] 10-325 Mg) 1 tab Q4H PRN PO 09/10/16 10:00 09/15/16 17:16 ([place] 10-325 Mg) 2 tab Q4H PRN PO 09/10/16 10:00 09/16/16 04:44 (Norvasc) 10 mg DAILY PO 09/12/16 08:00 09/16/16 09:23 (Hydrodiuril) 25 mg DAILY PO 09/12/16 09:00 09/16/16 09:23 (Keppra) 500 mg Q12HR PO 09/15/16 21:00 09/16/16 09:22 (Miralax) 17 gm DAILY PO 09/16/16 10:30 A/P Problem List: (1) Brain mass ICD Code: G93.9 Status: Acute (2) Hypertension ICD Code: I10 Status: Acute (3) Tobacco abuse ICD Code: Z72.0 Status: Acute (4) Alcohol use ICD Code: Z78.9 Status: Acute Assessment and Plan 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 CT head 09/08 revealed a 2.3 x 1.8 cm hyperdense mass at the third ventricle causing obstruction of the lateral ventricles/hydronephrosis. There is also transependymal edema adjacent to both ventricles. Dr. Germain/neurosurgery following and patient underwent MRI brain which confirmed diagnosis. Started on Decadron secondary to brain edema 4 mg IV every 12 hours. S/p Stereotactic, image-guided craniotomy, resection of colloid cyst and ventriculostomy placement on 09/10. Ventriculostomy removed on 09/13. Repeat head CT 09/14: Interim removal of the right-sided ventriculostomy; No ventriculomegaly; Small blood collected in the third ventricle; Decreasing right frontal subdural hemorrhage and air; Minimal parenchymal hemorrhage in the right frontal lobe unchanged; About 1 mm of leftward midline shift, decreased. Pathology without evidence of malignancy. Continues to have headaches. - Acetaminophen for fever; [place]/morphine for pain management. - Placed on Keppra 500 mg twice a day seizure prophylaxis. - PT/ OT. - Repeat head CT per NS. Hypertension Blood pressure currently controlled, was elevated earlier on. - Continue lisinopril 20 mg daily, amlodipine 10 mg by mouth daily and HCTZ 25 mg by mouth daily. Hypernatremia Na level was 150. Resolved. - Monitor and replete electrolytes as needed. - encourage PO intake. Prophylaxis: SCD/ holding pharmacological prophylaxis in light of craniotomy till cleared by neurosurgery. Discharge Planning Awaiting NS clearance Problem Qualifiers (1) Hypertension: Qualified Code: I10 - Essential hypertension Jarek Zamora DO Sep 16, 2016 10:30
--- NOTE | 2016-09-16 10:48 | RADRPT ---
EXAM DATE/TIME: 09/16/2016 10:31 [facility] COMPARISON: MRI BRAIN W & W/O CONTRAST, September 09, 2016, 15:09. CT BRAIN W/O CONTRAST, September 14, 2016, 4:59. INDICATIONS : Severe headache, 4 days post op craniotomy RADIATION DOSE: 41.65 CTDIvol (mGy) MEDICAL HISTORY : Cardiovascular disease. Hypertension. SURGICAL HISTORY : Craniotomy. ENCOUNTER: Initial ACUITY: 1 day PAIN SCALE: 10/10 LOCATION: cranial TECHNIQUE: Multiple contiguous axial images were obtained of the head. Using automated exposure control and adj ustment of the mA and/or kV according to patient size, radiation dose was kept as low as reasonably a chievable to obtain optimal diagnostic quality images. DICOM format image data is available electro nically for review and comparison. FINDINGS: Postoperative examination demonstrates changes consistent with right parietal craniotomy and reductio n/removal of the patient's colloid cyst. The ventricles have decreased in size compared to previous M RI dated 09/09/16. There is no evidence of hemorrhage within the operative bed. There is a trace amount extra axial hemorrhage along the lateral margin of the right frontal lobe. Th ere is no significant mass effect associated with this. The appearance of the posterior fossa is unremarkable. There are postsurgical changes within the skull. CONCLUSION: 1. Stable postoperative examination with only very minimal subdural hemorrhage along the right fronta l lobe. 2. Ventricles have decreased in size compared to prior dated 09/09/16. Billy Lundberg MD on September 16, 2016 at 10:43 Board Certified Radiologist. This report was verified electronically.
[2016-09-16] MEDS: POLYETHYLENE GLYCOL 17 GM PKG PO SCH (12:20)
[2016-09-16 12:25] VITALS: BP 124/74; PULSE 47; RESP 20; TEMP 97.2; O2SAT 98
[2016-09-16] MEDS: ACETAMINOPHEN 325 MG TAB PO PRN (13:08)
[2016-09-16 16:24] VITALS: BP 137/81; PULSE 44; RESP 20; TEMP 97.4; O2SAT 97
[2016-09-16 20:49] VITALS: BP 112/68; PULSE 51; RESP 17; TEMP 96.8; O2SAT 98
[2016-09-17] VITALS (7 sets, daily range): BP systolic 118–135; BP diastolic 66–85; PULSE 47–66; RESP 17–20; TEMP 96.8–97.4; O2SAT 95–99
[2016-09-17] MEDS: ACETAMINOPHEN/HYDROcodone 325 MG/10 MG TAB PO PRN ×2 (04:48→21:52)
[2016-09-17] MEDS: POLYETHYLENE GLYCOL 17 GM PKG PO SCH (08:09)
[2016-09-17] MEDS: DOCUSATE SODIUM 100 MG CAP PO SCH ×2 (08:09→21:52)
[2016-09-17] MEDS: SODIUM CHLORIDE 0.9% FLUSH 5 ML FLUSH IVF SCH ×2 (08:10→21:52)
[2016-09-17] MEDS: LISINOPRIL 20 MG TAB PO SCH (08:10)
[2016-09-17] MEDS: PANTOPRAZOLE SOD 40 MG DELAYED RELEASE TAB PO SCH (08:10)
[2016-09-17] MEDS: DOCUSATE SODIUM 50 MG/SENNA 8.6 MG TAB PO SCH ×2 (08:10→21:52)
[2016-09-17] MEDS: levETIRAcetam 500 MG TAB PO SCH ×2 (08:10→21:52)
[2016-09-17] MEDS: HYDROCHLOROTHIAZIDE 25 MG TAB PO SCH (08:10)
--- NOTE | 2016-09-17 09:39 | HHI.PR ---
Subjective Remarks The patient says his headache is much improved. He rates it at a 3 out of 10 in severity. He says the pain medications are working well. He has been ambulating without difficulty. He still has not had a bowel movement in several days. Objective Vitals Vital Signs Date Time Temp Pulse Resp B/P Pulse Ox O2 Delivery O2 Flow Rate FiO2 09/17/16 09:26 95 09/17/16 08:46 96.8 47 20 121/85 99 09/17/16 05:48 20 09/17/16 04:00 96.8 56 17 135/85 97 09/17/16 00:16 96.8 53 17 126/82 97 09/16/16 20:49 96.8 51 17 112/68 98 09/16/16 16:24 97.4 44 20 137/81 97 09/16/16 12:25 97.2 47 20 124/74 98 I/O 09/16/16 09/16/16 09/16/16 09/17/16 09/17/16 09/17/16 07:00 15:00 23:00 07:00 15:00 23:00 Intake Total 0 ml 480 ml 240 ml 240 ml Balance 0 ml 480 ml 240 ml 240 ml Intake Oral 480 ml 240 ml 240 ml IV Total 0 ml 0 ml # Voids 2 2 2 Result Diagram: 09/15/16 1350 09/15/16 1350 Imaging Last Impressions Head CT 09/16/16 0000 Signed Impressions: Service Date/Time: September 10:31 - CONCLUSION: 1. Stable postoperative examination with only very minimal subdural hemorrhage along the right frontal lobe. 2. Ventricles have decreased in size compared to prior dated 09/09/16. Billy Lundberg MD Chest X-Ray 09/10/16 0000 Signed Impressions: Service Date/Time: Saturday, September 10, 2016 13:10 - CONCLUSION: 1. Right central line in good position. No pneumothorax. 2. The lungs are grossly clear. Roger Pratt MD Brain MRI 09/09/16 0000 Signed Impressions: Service Date/Time: September 15:09 - CONCLUSION: There is a bilobed mass is centered at the foramen of Frausto measuring up to 3.1 cm. 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 These findings were discussed with Dr. Germain. Jori Franklin MD Objective Remarks GENERAL: Resting in bed, in no acute distress SKIN: Warm and dry. No rash HEAD: Atraumatic. Normocephalic. EYES: Pupils equal and round about 3-4 mm bilaterally and reactive. No scleral icterus. No injection or drainage. ENT: No nasal bleeding or discharge. Mucous membranes pink and moist. NECK: Trachea midline. No JVD. CARDIOVASCULAR: Rate a cardiac, RRR. S1, S2 no S4. Without murmur RESPIRATORY: Clear to auscultation. Breath sounds equal bilaterally. GASTROINTESTINAL: Abdomen soft, non-tender, nondistended. Hepatic and splenic margins not palpable. Decreased bowel sounds. MUSCULOSKELETAL: No edema, warm bilaterally. NEUROLOGICAL: Awake and alert. No obvious cranial nerve deficits. Motor grossly within normal limits. Five out of 5 muscle strength in the arms and legs. No pronator drift. Normal speech. PSYCHIATRIC: Appropriate mood and affect; insight and judgment normal. Medications and IVs Current Medications Medications (Trade) Dose Ordered Sig/Sandrine Route Start Time Stop Time Status Last Admin (Tylenol) 650 mg Q6H PRN PO 09/08/16 19:30 09/16/16 13:08 Miscellaneous Information 1 Q361D XX 09/08/16 19:30 (Viridiana-Colace) 1 tab BID PO 09/08/16 21:00 09/17/16 08:10 (Milk Of Magnesia Liq) 30 ml Q12H PRN PO 09/08/16 19:30 (Senokot) 17.2 mg Q12H PRN PO 09/08/16 19:30 (Dulcolax Supp) 10 mg DAILY PRN RECTAL 09/08/16 19:30 (Lactulose Liq) 30 ml DAILY PRN PO 09/08/16 19:30 (Nitroglycerin 2% Oint) 2 inch Q6HR PRN TOPICAL 09/08/16 19:30 09/08/16 22:38 (D50w (Vial) Inj) 50 ml UNSCH PRN IV 09/08/16 19:45 (Glucagon Inj) 1 mg UNSCH PRN OTHER 09/08/16 19:45 (Vasotec Inj) 1.25 mg Q6H PRN IV PUSH 09/08/16 23:30 09/13/16 05:13 (Catapres) 0.1 mg Q6H PRN PO 09/08/16 23:30 09/13/16 17:29 (Prinivil) 20 mg DAILY PO 09/10/16 09:00 09/17/16 08:10 (NS Flush) 2 ml UNSCH PRN IVF 09/10/16 10:00 (NS Flush) 2 ml BID IVF 09/10/16 21:00 09/17/16 08:10 (Colace) 100 mg BID PO 09/10/16 21:00 09/17/16 08:09 (Protonix) 40 mg DAILY PO 09/11/16 09:00 09/17/16 08:10 (Zofran Inj) 4 mg Q6H PRN IV 09/10/16 10:00 ([place] 10-325 Mg) 1 tab Q4H PRN PO 09/10/16 10:00 09/15/16 17:16 ([place] 10-325 Mg) 2 tab Q4H PRN PO 09/10/16 10:00 09/17/16 04:48 (Norvasc) 10 mg DAILY PO 09/12/16 08:00 09/17/16 08:10 (Hydrodiuril) 25 mg DAILY PO 09/12/16 09:00 09/17/16 08:10 (Keppra) 500 mg Q12HR PO 09/15/16 21:00 09/17/16 08:10 (Miralax) 17 gm DAILY PO 09/16/16 10:30 09/17/16 08:09 A/P Problem List: (1) Brain mass ICD Code: G93.9 Status: Acute (2) Hypertension ICD Code: I10 Status: Acute (3) Tobacco abuse ICD Code: Z72.0 Status: Acute (4) Alcohol use ICD Code: Z78.9 Status: Acute Assessment and Plan 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 CT head 09/08 revealed a 2.3 x 1.8 cm hyperdense mass at the third ventricle causing obstruction of the lateral ventricles/hydronephrosis. There is also transependymal edema adjacent to both ventricles. Dr. Germain/neurosurgery following and patient underwent MRI brain which confirmed diagnosis. Started on Decadron secondary to brain edema 4 mg IV every 12 hours. S/p Stereotactic, image-guided craniotomy, resection of colloid cyst and ventriculostomy placement on 09/10. Ventriculostomy removed on 09/13. Repeat head CT 09/14: Interim removal of the right-sided ventriculostomy; No ventriculomegaly; Small blood collected in the third ventricle; Decreasing right frontal subdural hemorrhage and air; Minimal parenchymal hemorrhage in the right frontal lobe unchanged; About 1 mm of leftward midline shift, decreased. Pathology without evidence of malignancy. Continues to have headaches. Repeat head CT with questionable increase in ventricular size per NS. - Acetaminophen for fever; [place]/morphine for pain management. - Placed on Keppra 500 mg twice a day seizure prophylaxis. - PT/ OT. - Repeat head CT on 09/20 per NS. Hypertension Blood pressure currently controlled, was elevated earlier on. - Continue lisinopril 20 mg daily, amlodipine 10 mg by mouth daily and HCTZ 25 mg by mouth daily. Hypernatremia Na level was 150. Resolved. - Monitor and replete electrolytes as needed. - encourage PO intake. Constipation Several days without a bowel movement. - standing Miralax added. Trial of lactulose. Dulcolax supp if needed. Prophylaxis: SCD/ holding pharmacological prophylaxis in light of craniotomy till cleared by neurosurgery. Discharge Planning Awaiting NS clearance Problem Qualifiers (1) Hypertension: Qualified Code: I10 - Essential hypertension aJrek Zamora DO Sep 17, 2016 09:39
[2016-09-17] MEDS ORDERED: LACTULOSE SYRUP 20 GM/30 ML CUP PO ONE (09:45)
[2016-09-17] MEDS ORDERED: BISACODYL 10 MG SUPP RECTAL ONE (09:45)
--- NOTE | 2016-09-17 14:37 | HHI.NSPN ---
(Lorraine Mcgowan) Note Status Status: Progress Note (Lorraine Mcgowan) Interval History Interval History This is a 50-year-old [place] male with history of arterial hypertension alcohol use and tobacco use. He presents to [facility] ED with a 3-4 day history of headaches. He describes his headaches as bilateral frontal, 6 out of 10 described as throbbing. Not associated with photophobia or vision changes. he is taking Tylenol without relief. He's also been having gait and balance disorder not favoring either side. Denies any falls, striking his head or syncope. He had an elevated systolic blood pressure 204. CT head revealed 2.3 x 1.9 cm hyperdense mass the third ventricle obstructing lateral ventricles. Neurosurgical consultation was requested 09/13: POD 3, doing well, pt reports his confusion is better and thinking much clearer. Minimal surgical pain. 09/14: POD 4, stable overnight, f.u CT Head this morning shows improved ventriculomegaly. 09/15: POD 5, c/o of mild headaches, tolerable, otherwise doing well. 09/16: POD 6, c/o of increased headaches today, a stat CT Head obtained, showed possible slight increased in ventricle size compared to 09/14 CT Head. 09/17: POD 7, persistent MCNAIR's but stable, no new focal neurological complaints. (Lorraine Mcgowan) Labs, Micro, & Vital Signs Results Date Time Temp Pulse Resp B/P Pulse Ox O2 Delivery O2 Flow Rate FiO2 09/17/16 12:10 97.3 59 20 127/69 99 09/17/16 09:26 95 09/17/16 08:46 96.8 47 20 121/85 99 09/17/16 05:48 20 09/17/16 04:00 96.8 56 17 135/85 97 09/17/16 00:16 96.8 53 17 126/82 97 09/16/16 20:49 96.8 51 17 112/68 98 09/16/16 16:24 97.4 44 20 137/81 97 09/17/16 06:59 Intake Total 960 ml Balance 960 ml Constitutional Vital Signs Date Time Temp Pulse Resp B/P Pulse Ox O2 Delivery O2 Flow Rate FiO2 09/17/16 12:10 97.3 59 20 127/69 99 09/17/16 09:26 95 09/17/16 08:46 96.8 47 20 121/85 99 09/17/16 05:48 20 09/17/16 04:00 96.8 56 17 135/85 97 09/17/16 00:16 96.8 53 17 126/82 97 09/16/16 20:49 96.8 51 17 112/68 98 09/16/16 16:24 97.4 44 20 137/81 97 09/17/16 06:59 Intake Total 960 ml Balance 960 ml (Lorraine Mcgowan) Review of Systems/Exam Exam Mr. Scott is alert and oriented to time, place and person. Speech is fluent. Follows commands well. Wound is healing well without signs of infection. Cranial nerve examination: pupils equal, round and reactive to light. EOMs are intact, no nystagmus. Facial motor are normal and symmetrical. Neck is soft and supple, no meningismus or nuchal rigidity Motor: moves all four extremities well and symmetrically Sensory examination is intact to light touch in both the upper and lower extremities. Plantars flexors b/l. (Lorraine Mcgowan) Medications Current Medications Current Medications Medications (Trade) Dose Ordered Sig/Sandrine Route PRN Reason Start Time Stop Time Status Last Admin Dose Admin Acetaminophen (Tylenol) 650 mg Q6H PRN PO PAIN 1-2 AND/OR FEVER >101F 09/08/16 19:30 09/16/16 13:08 Miscellaneous Information 1 Q361D XX 09/08/16 19:30 Senna/Docusate Sodium (Viridiana-Colace) 1 tab BID PO 09/08/16 21:00 09/17/16 08:10 Magnesium Hydroxide (Milk Of Magnesia Liq) 30 ml Q12H PRN PO MILD - MODERATE CONSTIPATION 09/08/16 19:30 Sennosides (Senokot) 17.2 mg Q12H PRN PO MODERATE - SEVERE CONSTIPATION 09/08/16 19:30 Bisacodyl (Dulcolax Supp) 10 mg DAILY PRN RECTAL SEVERE CONSITIPATION 09/08/16 19:30 Lactulose (Lactulose Liq) 30 ml DAILY PRN PO SEVERE CONSITIPATION 09/08/16 19:30 Nitroglycerin (Nitroglycerin 2% Oint) 2 inch Q6HR PRN TOPICAL SBP>160, DBP>90 09/08/16 19:30 09/08/16 22:38 Dextrose (D50w (Vial) Inj) 50 ml UNSCH PRN IV HYPOGLYCEMIA-SEE COMMENTS 09/08/16 19:45 Glucagon (Glucagon Inj) 1 mg UNSCH PRN OTHER HYPOGLYCEMIA-SEE COMMENTS 09/08/16 19:45 Enalaprilat (Vasotec Inj) 1.25 mg Q6H PRN IV PUSH SBP>160, DBP>90 09/08/16 23:30 09/13/16 05:13 Clonidine (Catapres) 0.1 mg Q6H PRN PO SBP>160, DBP>90, HR>65 09/08/16 23:30 09/13/16 17:29 Lisinopril (Prinivil) 20 mg DAILY PO 09/10/16 09:00 09/17/16 08:10 IV Flush (NS Flush) 2 ml UNSCH PRN IVF FLUSH AFTER USING IV ACCESS 09/10/16 10:00 IV Flush (NS Flush) 2 ml BID IVF 09/10/16 21:00 09/17/16 08:10 Docusate Sodium (Colace) 100 mg BID PO 09/10/16 21:00 09/17/16 08:09 Pantoprazole Sodium (Protonix) 40 mg DAILY PO 09/11/16 09:00 09/17/16 08:10 Ondansetron HCl (Zofran Inj) 4 mg Q6H PRN IV NAUSEA OR VOMITING 09/10/16 10:00 Acetaminophen/ Hydrocodone Bitart ([place] 10-325 Mg) 1 tab Q4H PRN PO PAIN SCALE 1 TO 5 09/10/16 10:00 09/15/16 17:16 Acetaminophen/ Hydrocodone Bitart ([place] 10-325 Mg) 2 tab Q4H PRN PO PAIN SCALE 6 TO 10 09/10/16 10:00 09/17/16 04:48 Amlodipine Besylate (Norvasc) 10 mg DAILY PO 09/12/16 08:00 09/17/16 08:10 Hydrochlorothiazide (Hydrodiuril) 25 mg DAILY PO 09/12/16 09:00 09/17/16 08:10 Levetriacetam (Keppra) 500 mg Q12HR PO 09/15/16 21:00 09/17/16 08:10 Polyethylene Glycol (Miralax) 17 gm DAILY PO 09/16/16 10:30 09/17/16 08:09 (Lorraine Mcgowan) Medical Decision Making MDM Remarks 50 year old male with 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, most likely colloid cyst, final pathology reports no malignancy s/p right craniotomy with resection of intraventricular mass 09/10/16, POD 7 increasing headaches, stable CT Brain today with possible slight increased ventricle size compared to 09/14 ( Lorraine Mcgowan) Plan Plan Remarks cont neuro check follow up CT Head Tuesday to assess worsening hydrocephalus, if so may need LINING STRAP CLOSER shunt dw pt, understands treatment plan (Lorraine Mcgowan) Attending Statement The exam, history, and the medical decision-making described in the above note were completed with the assistance of the mid-level provider. I reviewed and agree with the findings presented. I attest that I had a [id number] encounter with the patient on the same day, and personally performed and documented my assessment and findings in the medical record. (Dave Germain MD) Lorraine Mcgowan Sep 17, 2016 14:37 Dave Germain MD Sep 20, 2016 12:40
[2016-09-18] VITALS: BP_SYST 104; BP_SYST 111; BP_DIAS 65; BP_DIAS 70; PULSE 74; PULSE 82; RESP 18; RESP 20; TEMP 97; TEMP 97.3; O2SAT 98; O2SAT 99
[2016-09-18 04:00] VITALS: BP 112/70; PULSE 53; RESP 20; TEMP 97.6; O2SAT 96
[2016-09-18 08:06] VITALS: BP 119/84; PULSE 68; RESP 18; TEMP 97.9; O2SAT 99
[2016-09-18] MEDS: levETIRAcetam 500 MG TAB PO SCH ×2 (08:47→21:57)
[2016-09-18] MEDS: HYDROCHLOROTHIAZIDE 25 MG TAB PO SCH (08:47)
[2016-09-18] MEDS: PANTOPRAZOLE SOD 40 MG DELAYED RELEASE TAB PO SCH (08:47)
[2016-09-18] MEDS: LISINOPRIL 20 MG TAB PO SCH (08:48)
[2016-09-18] MEDS: POLYETHYLENE GLYCOL 17 GM PKG PO SCH (08:48)
[2016-09-18] MEDS: DOCUSATE SODIUM 100 MG CAP PO SCH ×2 (08:48→21:57)
[2016-09-18] MEDS: DOCUSATE SODIUM 50 MG/SENNA 8.6 MG TAB PO SCH ×2 (08:49→21:57)
[2016-09-18] MEDS: SODIUM CHLORIDE 0.9% FLUSH 5 ML FLUSH IVF SCH ×2 (08:55→21:59)
[2016-09-18] MEDS: ACETAMINOPHEN/HYDROcodone 325 MG/10 MG TAB PO PRN (08:58)
[2016-09-18 12:09] VITALS: BP 124/80; PULSE 66; RESP 18; TEMP 97.2; O2SAT 97
--- NOTE | 2016-09-18 12:40 | HHI.PR ---
Subjective Remarks The patient says his headache is a 3 out of 10. The pain medications are not down a little bit. He still has not had a bowel movement. No other acute concerns. Objective Vitals Vital Signs Date Time Temp Pulse Resp B/P Pulse Ox O2 Delivery O2 Flow Rate FiO2 09/18/16 12:09 97.2 66 18 124/80 97 09/18/16 08:06 97.9 68 18 119/84 99 09/18/16 04:00 97.6 53 20 112/70 96 09/18/16 00:00 97.0 82 18 104/70 98 09/17/16 20:00 97.1 66 18 118/66 96 09/17/16 16:32 97.4 53 20 121/73 97 I/O 09/17/16 09/17/16 09/17/16 09/18/16 09/18/16 09/18/16 07:00 15:00 23:00 07:00 15:00 23:00 Intake Total 240 ml 480 ml Balance 240 ml 480 ml Intake Oral 240 ml 480 ml IV Total 0 ml # Voids 2 3 4 1 Result Diagram: 09/15/16 1350 09/15/16 1350 Imaging Last Impressions Head CT 09/16/16 0000 Signed Impressions: Service Date/Time: September 10:31 - CONCLUSION: 1. Stable postoperative examination with only very minimal subdural hemorrhage along the right frontal lobe. 2. Ventricles have decreased in size compared to prior dated 09/09/16. Billy Lundberg MD Chest X-Ray 09/10/16 0000 Signed Impressions: Service Date/Time: Saturday, September 10, 2016 13:10 - CONCLUSION: 1. Right central line in good position. No pneumothorax. 2. The lungs are grossly clear. Roger Pratt MD Brain MRI 09/09/16 0000 Signed Impressions: Service Date/Time: September 15:09 - CONCLUSION: There is a bilobed mass is centered at the foramen of Frausto measuring up to 3.1 cm. 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 These findings were discussed with Dr. Germain. Jori Franklin MD Objective Remarks GENERAL: Resting in bed, in no acute distress SKIN: Warm and dry. No rash HEAD: Atraumatic. Normocephalic. EYES: Pupils equal and round about 3-4 mm bilaterally and reactive. No scleral icterus. No injection or drainage. ENT: No nasal bleeding or discharge. Mucous membranes pink and moist. NECK: Trachea midline. No JVD. CARDIOVASCULAR: Rate a cardiac, RRR. S1, S2 no S4. Without murmur RESPIRATORY: Clear to auscultation. Breath sounds equal bilaterally. GASTROINTESTINAL: Abdomen soft, non-tender, nondistended. Hepatic and splenic margins not palpable. Decreased bowel sounds. MUSCULOSKELETAL: No edema, warm bilaterally. NEUROLOGICAL: Awake and alert. No obvious cranial nerve deficits. Motor grossly within normal limits. Five out of 5 muscle strength in the arms and legs. No pronator drift. Normal speech. PSYCHIATRIC: Appropriate mood and affect; insight and judgment normal. Medications and IVs Current Medications Medications (Trade) Dose Ordered Sig/Sandrine Route Start Time Stop Time Status Last Admin (Tylenol) 650 mg Q6H PRN PO 09/08/16 19:30 09/16/16 13:08 Miscellaneous Information 1 Q361D XX 09/08/16 19:30 (Viridiana-Colace) 1 tab BID PO 09/08/16 21:00 09/18/16 08:49 (Milk Of Magnesia Liq) 30 ml Q12H PRN PO 09/08/16 19:30 (Senokot) 17.2 mg Q12H PRN PO 09/08/16 19:30 (Dulcolax Supp) 10 mg DAILY PRN RECTAL 09/08/16 19:30 (Lactulose Liq) 30 ml DAILY PRN PO 09/08/16 19:30 (Nitroglycerin 2% Oint) 2 inch Q6HR PRN TOPICAL 09/08/16 19:30 09/08/16 22:38 (D50w (Vial) Inj) 50 ml UNSCH PRN IV 09/08/16 19:45 (Glucagon Inj) 1 mg UNSCH PRN OTHER 09/08/16 19:45 (Vasotec Inj) 1.25 mg Q6H PRN IV PUSH 09/08/16 23:30 09/13/16 05:13 (Catapres) 0.1 mg Q6H PRN PO 09/08/16 23:30 09/13/16 17:29 (Prinivil) 20 mg DAILY PO 09/10/16 09:00 09/18/16 08:48 (NS Flush) 2 ml UNSCH PRN IVF 09/10/16 10:00 (NS Flush) 2 ml BID IVF 09/10/16 21:00 09/18/16 08:55 (Colace) 100 mg BID PO 09/10/16 21:00 09/18/16 08:48 (Protonix) 40 mg DAILY PO 09/11/16 09:00 09/18/16 08:47 (Zofran Inj) 4 mg Q6H PRN IV 09/10/16 10:00 ([place] 10-325 Mg) 1 tab Q4H PRN PO 09/10/16 10:00 09/18/16 08:58 ([place] 10-325 Mg) 2 tab Q4H PRN PO 09/10/16 10:00 09/17/16 04:48 (Norvasc) 10 mg DAILY PO 09/12/16 08:00 09/18/16 08:47 (Hydrodiuril) 25 mg DAILY PO 09/12/16 09:00 09/18/16 08:47 (Keppra) 500 mg Q12HR PO 09/15/16 21:00 09/18/16 08:47 (Miralax) 17 gm DAILY PO 09/16/16 10:30 09/18/16 08:48 A/P Problem List: (1) Brain mass ICD Code: G93.9 Status: Acute (2) Hypertension ICD Code: I10 Status: Acute (3) Tobacco abuse ICD Code: Z72.0 Status: Acute (4) Alcohol use ICD Code: Z78.9 Status: Acute Assessment and Plan 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 CT head 09/08 revealed a 2.3 x 1.8 cm hyperdense mass at the third ventricle causing obstruction of the lateral ventricles/hydronephrosis. There is also transependymal edema adjacent to both ventricles. Dr. Germain/neurosurgery following and patient underwent MRI brain which confirmed diagnosis. Started on Decadron secondary to brain edema 4 mg IV every 12 hours. S/p Stereotactic, image-guided craniotomy, resection of colloid cyst and ventriculostomy placement on 09/10. Ventriculostomy removed on 09/13. Repeat head CT 09/14: Interim removal of the right-sided ventriculostomy; No ventriculomegaly; Small blood collected in the third ventricle; Decreasing right frontal subdural hemorrhage and air; Minimal parenchymal hemorrhage in the right frontal lobe unchanged; About 1 mm of leftward midline shift, decreased. Pathology without evidence of malignancy. Continues to have headaches. Repeat head CT with questionable increase in ventricular size per NS. - Acetaminophen for fever; [place]/morphine for pain management. - Placed on Keppra 500 mg twice a day seizure prophylaxis. - PT/ OT. - Repeat head CT on 09/20 per NS. Hypertension Blood pressure currently controlled, was elevated earlier on. - Continue lisinopril 20 mg daily, amlodipine 10 mg by mouth daily and HCTZ 25 mg by mouth daily. Hypernatremia Na level was 150. Resolved. - Monitor and replete electrolytes as needed. - encourage PO intake. Constipation Several days without a bowel movement. - standing Miralax added. Trial of lactulose, milk of magnesia. S/p Dulcolax supp. Fleets enema if needed. Prophylaxis: SCD/ holding pharmacological prophylaxis in light of craniotomy till cleared by neurosurgery. Discharge Planning Awaiting NS clearance Problem Qualifiers (1) Hypertension: Qualified Code: I10 - Essential hypertension Jarek Zamora DO Sep 18, 2016 12:40
[2016-09-18] MEDS ORDERED: MAGNESIUM HYDROXIDE SUSP 30 ML CUP PO ONE (13:15)
[2016-09-18] MEDS ORDERED: SOD PHOSPHATE/SOD BIPHOSPHATE (ADULT) ENEMA 133ML RECTAL ONE (13:15)
[2016-09-18] MEDS ORDERED: LACTULOSE SYRUP 20 GM/30 ML CUP PO ONE (13:15)
[2016-09-18] MEDS: SENNOSIDES 8.6 MG TAB PO SCH (13:44)
--- NOTE | 2016-09-18 13:45 | HHI.NSPN ---
History Chief Complaint: Intermittent headaches. Interval History This is a 50-year-old [place] male with history of arterial hypertension alcohol use and tobacco use. He presents to [facility] ED with a 3-4 day history of headaches. He describes his headaches as bilateral frontal, 6 out of 10 described as throbbing. Not associated with photophobia or vision changes. he is taking Tylenol without relief. He's also been having gait and balance disorder not favoring either side. Denies any falls, striking his head or syncope. He had an elevated systolic blood pressure 204. CT head revealed 2.3 x 1.9 cm hyperdense mass the third ventricle obstructing lateral ventricles. Neurosurgical consultation was requested 09/13: POD 3, doing well, pt reports his confusion is better and thinking much clearer. Minimal surgical pain. 09/14: POD 4, stable overnight, f.u CT Head this morning shows improved ventriculomegaly. 09/15: POD 5, c/o of mild headaches, tolerable, otherwise doing well. 09/16: POD 6, c/o of increased headaches today, a stat CT Head obtained, showed possible slight increased in ventricle size compared to 09/14 CT Head. 09/17: POD 7, persistent MCNAIR's but stable, no new focal neurological complaints. 09/18: POD 8 Pt complains of intermittent headaches. No nausea or vomiting. N paresthesias in extremities. No weakness other than general. No lethargy. Review of Systems General: Negative for: fever, chills, insomnia Respiratory: Negative for: shortness of breath, cough, sputum Cardiovascular: Negative for: chest pain Gastrointestinal: Negative for: nausea, vomitting, diarrhea, constipation Exam Results Vital Signs Date Time Temp Pulse Resp B/P Pulse Ox O2 Delivery O2 Flow Rate FiO2 09/18/16 12:09 97.2 66 18 124/80 97 Intake and Output 09/17/16 09/17/16 09/18/16 08:00 16:00 00:00 Intake Total 240 ml 480 ml Balance 240 ml 480 ml Physical Examination Resp: CTA bilaterally Heart: NSR no murmurs Abd: Soft positive bs Skin: No cyanosis or erythema. No signs of infection or complication. [place] in place. Muscle: Moves all 4 extremities well. Neuro: Pt awakens to voice. Follows commands well. Speech clear and appropriate. Pupils 3mm bilaterally, reactive bilaterally. Lab, Micro, Other Results Last Impressions Head CT 09/16/16 0000 Signed Impressions: Service Date/Time: September 10:31 - CONCLUSION: 1. Stable postoperative examination with only very minimal subdural hemorrhage along the right frontal lobe. 2. Ventricles have decreased in size compared to prior dated 09/09/16. Billy Lundberg MD Chest X-Ray 09/10/16 0000 Signed Impressions: Service Date/Time: Saturday, September 10, 2016 13:10 - CONCLUSION: 1. Right central line in good position. No pneumothorax. 2. The lungs are grossly clear. Roger Pratt MD Brain MRI 09/09/16 0000 Signed Impressions: Service Date/Time: September 15:09 - CONCLUSION: There is a bilobed mass is centered at the foramen of Frausto measuring up to 3.1 cm. 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 These findings were discussed with Dr. Germain. Jori Franklin MD 09/17/16 09/17/16 09/18/16 15:00 23:00 07:00 Intake Total 480 ml Balance 480 ml Intake Oral 480 ml # Voids 3 4 Medical Decision Making Impression and Plan A: 50 y/o M s/p right craniotomy for resection of colloid cyst. P: Continue to monitor Continue with current care Follow up CT head ordered for Tuesday by neurosurgery team. Ronal Hightower Sep 18, 2016 13:45
[2016-09-18 16:30] VITALS: BP 111/80; PULSE 64; RESP 18; TEMP 97.6; O2SAT 98
[2016-09-19] VITALS: BP 103/57; PULSE 71; RESP 20; TEMP 97.9; O2SAT 98
[2016-09-19 04:00] VITALS: BP 91/62; PULSE 67; RESP 20; TEMP 97.4; O2SAT 98
[2016-09-19] MEDS: POLYETHYLENE GLYCOL 17 GM PKG PO SCH (08:23)
[2016-09-19] MEDS: DOCUSATE SODIUM 50 MG/SENNA 8.6 MG TAB PO SCH ×2 (08:24→20:54)
[2016-09-19] MEDS: LISINOPRIL 20 MG TAB PO SCH (08:24)
[2016-09-19] MEDS: HYDROCHLOROTHIAZIDE 25 MG TAB PO SCH (08:24)
[2016-09-19] MEDS: SENNOSIDES 8.6 MG TAB PO SCH (08:24)
[2016-09-19] MEDS: levETIRAcetam 500 MG TAB PO SCH ×2 (08:24→20:54)
[2016-09-19] MEDS: DOCUSATE SODIUM 100 MG CAP PO SCH ×2 (08:24→20:54)
[2016-09-19] MEDS: PANTOPRAZOLE SOD 40 MG DELAYED RELEASE TAB PO SCH (08:25)
[2016-09-19 08:30] VITALS: BP 104/69; PULSE 63; RESP 16; TEMP 97.2; O2SAT 97
[2016-09-19] MEDS: SODIUM CHLORIDE 0.9% FLUSH 5 ML FLUSH IVF SCH ×2 (09:00→20:55)
[2016-09-19 13:14] VITALS: BP 115/72; PULSE 76; RESP 16; TEMP 97.9; O2SAT 96
--- NOTE | 2016-09-19 14:50 | HHI.PR ---
Subjective Remarks The patient said that he was doing all right. He said he had that constant 3 out of 10 headache. He was tolerating a diet. Discussed with nursing. He has had bowel movements. Objective Vitals Vital Signs Date Time Temp Pulse Resp B/P Pulse Ox O2 Delivery O2 Flow Rate FiO2 09/19/16 13:14 97.9 76 16 115/72 96 09/19/16 08:30 97.2 63 16 104/69 97 09/19/16 04:00 97.4 67 20 91/62 98 09/19/16 00:00 97.9 71 20 103/57 98 09/18/16 16:30 97.6 64 18 111/80 98 I/O 09/18/16 09/18/16 09/18/16 09/19/16 09/19/16 09/19/16 06:59 14:59 22:59 06:59 14:59 22:59 # Voids 4 1 3 2 # Bowel Movements 2 0 Result Diagram: 09/15/16 1350 09/15/16 1350 Imaging Last Impressions Head CT 09/16/16 0000 Signed Impressions: Service Date/Time: September 10:31 - CONCLUSION: 1. Stable postoperative examination with only very minimal subdural hemorrhage along the right frontal lobe. 2. Ventricles have decreased in size compared to prior dated 09/09/16. Billy Lundberg MD Chest X-Ray 09/10/16 0000 Signed Impressions: Service Date/Time: Saturday, September 10, 2016 13:10 - CONCLUSION: 1. Right central line in good position. No pneumothorax. 2. The lungs are grossly clear. Roger Pratt MD Brain MRI 09/09/16 0000 Signed Impressions: Service Date/Time: September 15:09 - CONCLUSION: There is a bilobed mass is centered at the foramen of Frausto measuring up to 3.1 cm. 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 These findings were discussed with Dr. Germain. Jori Franklin MD Objective Remarks GENERAL: Resting in bed, in no acute distress SKIN: Warm and dry. No rash HEAD: Atraumatic. Normocephalic. EYES: Pupils equal and round about 3-4 mm bilaterally and reactive. No scleral icterus. No injection or drainage. ENT: No nasal bleeding or discharge. Mucous membranes pink and moist. NECK: Trachea midline. No JVD. CARDIOVASCULAR: Rate a cardiac, RRR. S1, S2 no S4. Without murmur RESPIRATORY: Clear to auscultation. Breath sounds equal bilaterally. GASTROINTESTINAL: Abdomen soft, non-tender, nondistended. Hepatic and splenic margins not palpable. Decreased bowel sounds. MUSCULOSKELETAL: No edema, warm bilaterally. NEUROLOGICAL: Awake and alert. No obvious cranial nerve deficits. Motor grossly within normal limits. Five out of 5 muscle strength in the arms and legs. No pronator drift. Normal speech. PSYCHIATRIC: Appropriate mood and affect; insight and judgment normal. Medications and IVs Current Medications Medications (Trade) Dose Ordered Sig/Sandrine Route Start Time Stop Time Status Last Admin (Tylenol) 650 mg Q6H PRN PO 09/08/16 19:30 09/16/16 13:08 Miscellaneous Information 1 Q361D XX 09/08/16 19:30 (Viridiana-Colace) 1 tab BID PO 09/08/16 21:00 09/19/16 08:24 (Milk Of Magnesia Liq) 30 ml Q12H PRN PO 09/08/16 19:30 (Senokot) 17.2 mg Q12H PRN PO 09/08/16 19:30 09/20/16 09:00 (Dulcolax Supp) 10 mg DAILY PRN RECTAL 09/08/16 19:30 (Lactulose Liq) 30 ml DAILY PRN PO 09/08/16 19:30 (Nitroglycerin 2% Oint) 2 inch Q6HR PRN TOPICAL 09/08/16 19:30 09/08/16 22:38 (D50w (Vial) Inj) 50 ml UNSCH PRN IV 09/08/16 19:45 (Glucagon Inj) 1 mg UNSCH PRN OTHER 09/08/16 19:45 (Vasotec Inj) 1.25 mg Q6H PRN IV PUSH 09/08/16 23:30 09/13/16 05:13 (Catapres) 0.1 mg Q6H PRN PO 09/08/16 23:30 09/13/16 17:29 (Prinivil) 20 mg DAILY PO 09/10/16 09:00 09/19/16 08:24 (NS Flush) 2 ml UNSCH PRN IVF 09/10/16 10:00 (NS Flush) 2 ml BID IVF 09/10/16 21:00 09/18/16 21:59 (Colace) 100 mg BID PO 09/10/16 21:00 09/19/16 08:24 (Protonix) 40 mg DAILY PO 09/11/16 09:00 09/19/16 08:25 (Zofran Inj) 4 mg Q6H PRN IV 09/10/16 10:00 ([place] 10-325 Mg) 1 tab Q4H PRN PO 09/10/16 10:00 09/18/16 08:58 ([place] 10-325 Mg) 2 tab Q4H PRN PO 09/10/16 10:00 09/17/16 04:48 (Norvasc) 10 mg DAILY PO 09/12/16 08:00 09/19/16 08:24 (Hydrodiuril) 25 mg DAILY PO 09/12/16 09:00 09/19/16 08:24 (Keppra) 500 mg Q12HR PO 09/15/16 21:00 09/19/16 08:24 (Miralax) 17 gm DAILY PO 09/16/16 10:30 09/19/16 08:23 (Senokot) 17.2 mg DAILY PO 09/18/16 13:00 09/19/16 08:24 A/P Problem List: (1) Brain mass ICD Code: G93.9 Status: Acute (2) Hypertension ICD Code: I10 Status: Acute (3) Tobacco abuse ICD Code: Z72.0 Status: Acute (4) Alcohol use ICD Code: Z78.9 Status: Acute Assessment and Plan 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 CT head 09/08 revealed a 2.3 x 1.8 cm hyperdense mass at the third ventricle causing obstruction of the lateral ventricles/hydronephrosis. There is also transependymal edema adjacent to both ventricles. Dr. Germain/neurosurgery following and patient underwent MRI brain which confirmed diagnosis. Started on Decadron secondary to brain edema 4 mg IV every 12 hours. S/p Stereotactic, image-guided craniotomy, resection of colloid cyst and ventriculostomy placement on 09/10. Ventriculostomy removed on 09/13. Repeat head CT 09/14: Interim removal of the right-sided ventriculostomy; No ventriculomegaly; Small blood collected in the third ventricle; Decreasing right frontal subdural hemorrhage and air; Minimal parenchymal hemorrhage in the right frontal lobe unchanged; About 1 mm of leftward midline shift, decreased. Pathology without evidence of malignancy. Continues to have headaches. Repeat head CT with questionable increase in ventricular size per NS. Still with chronic 05/14 headache. - Acetaminophen for fever; [place]/morphine for pain management. - Placed on Keppra 500 mg twice a day seizure prophylaxis. - PT/ OT. - Repeat head CT on 09/20 per NS. Hypertension Blood pressure currently controlled, was elevated earlier on. - Continue lisinopril 20 mg daily, amlodipine 10 mg by mouth daily and HCTZ 25 mg by mouth daily. Hypernatremia Na level was 150. Resolved. - Monitor and replete electrolytes as needed. - encourage PO intake. Constipation Several days without a bowel movement. - standing Miralax added. Trial of lactulose, milk of magnesia. S/p Dulcolax supp. Fleets enema if needed. Resolved. Prophylaxis: SCD/ holding pharmacological prophylaxis in light of craniotomy till cleared by neurosurgery. Discharge Planning Awaiting NS clearance Problem Qualifiers (1) Hypertension: Qualified Code: I10 - Essential hypertension Jarek Zamora DO Sep 19, 2016 14:50
[2016-09-19 16:56] VITALS: BP 107/66; PULSE 16; RESP 16; TEMP 97.2; O2SAT 97
[2016-09-19 20:40] VITALS: BP 120/83; PULSE 82; RESP 18; TEMP 97.8; O2SAT 97
[2016-09-19] MEDS: ACETAMINOPHEN 325 MG TAB PO PRN (20:54)
[2016-09-20 00:15] VITALS: BP 118/80; PULSE 76; RESP 17; TEMP 97.7; O2SAT 98
[2016-09-20 04:30] VITALS: BP 115/80; PULSE 75; RESP 18; TEMP 98.1; O2SAT 97
[2016-09-20 08:00] VITALS: BP 110/69; PULSE 81; RESP 16; TEMP 97.5; O2SAT 95
[2016-09-20] MEDS: SODIUM CHLORIDE 0.9% FLUSH 5 ML FLUSH IVF SCH ×2 (09:00→21:00)
--- NOTE | 2016-09-20 11:02 | RADRPT ---
EXAM DATE/TIME: 09/20/2016 10:29 [facility] COMPARISON: CT BRAIN W/O CONTRAST, September 14, 2016, 4:59. CT BRAIN W/O CONTRAST, September 08, 2016, 17:13. CT BRAIN W /O CONTRAST, September 11, 2016, 5:49. CT BRAIN W/O CONTRAST, September 16, 2016, 10:31. INDICATIONS : Cephalgia status post craniotomy. RADIATION DOSE: 56.35 CTDIvol (mGy) MEDICAL HISTORY : Cardiovascular disease. Hypertension. SURGICAL HISTORY : Craniotomy. ENCOUNTER: Subsequent ACUITY: 1 week PAIN SCALE: 5/10 LOCATION: Bilateral head TECHNIQUE: Multiple contiguous axial images were obtained of the head. Using automated exposure control and adj ustment of the mA and/or kV according to patient size, radiation dose was kept as low as reasonably a chievable to obtain optimal diagnostic quality images. DICOM format image data is available electro nically for review and comparison. FINDINGS: Redemonstration of right parietal craniotomy with interval removal of patient's colloid cyst and righ t frontal ventriculostomy catheter. Ventricles are stable in size. Small amount of blood products in the third ventricle which appear slightly more prominent than 09/16/2016 similar to 09/14/2016. Continu ed extra-axial blood products in the right frontal mid convexity without significant mass effect. Rem ainder of the examination is unchanged. CONCLUSION: 1. Evolution of postoperative changes following right parietal craniotomy and removal of patient's co lloid cyst with interval removal right frontal ventriculostomy catheter. Slightly increased blood pro ducts in the third ventricle in comparison to 09/16/2016 with appearance similar to . Stable ventricular size. Trell Alicea MD on September 20, 2016 at 10:46 Board Certified Radiologist. This report was verified electronically.
--- NOTE | 2016-09-20 11:14 | HHI.NSPN ---
(Lorraine Mcgowan) Note Status Status: Progress Note (Lorraine Mcgowan) Interval History Interval History This is a 50-year-old [place] male with history of arterial hypertension alcohol use and tobacco use. He presents to [facility] with a 3-4 day history of headaches. He describes his headaches as bilateral frontal, 6 out of 10 described as throbbing. Not associated with photophobia or vision changes. he is taking Tylenol without relief. He's also been having gait and balance disorder not favoring either side. Denies any falls, striking his head or syncope. He had an elevated systolic blood pressure 204. CT head revealed 2.3 x 1.9 cm hyperdense mass the third ventricle obstructing lateral ventricles. Neurosurgical consultation was requested 09/13: POD 3, doing well, pt reports his confusion is better and thinking much clearer. Minimal surgical pain. 09/14: POD 4, stable overnight, f.u CT Head this morning shows improved ventriculomegaly. 12: POD 5, c/o of mild headaches, tolerable, otherwise doing well. 09/16: POD 6, c/o of increased headaches today, a stat CT Head obtained, showed possible slight increased in ventricle size compared to 09/14 CT Head. 09/17: POD 7, persistent MCNAIR's but stable, no new focal neurological complaints. 09/20: POD 10: unchanged persistent but stable headaches, denies focal weakness, vomiting, lethargy. f/u CT Head today completed (Lorraine Mcgowan) Labs, Micro, & Vital Signs Results Date Time Temp Pulse Resp B/P Pulse Ox O2 Delivery O2 Flow Rate FiO2 09/20/16 08:00 97.5 81 16 110/69 95 09/20/16 04:30 98.1 75 18 115/80 97 09/20/16 00:15 97.7 76 17 118/80 98 09/19/16 20:40 97.8 82 18 120/83 97 09/19/16 16:56 97.2 16 16 107/66 97 09/19/16 13:14 97.9 76 16 115/72 96 09/20/16 07:00 Intake Total 1450 ml Balance 1450 ml Constitutional Vital Signs Date Time Temp Pulse Resp B/P Pulse Ox O2 Delivery O2 Flow Rate FiO2 09/20/16 08:00 97.5 81 16 110/69 95 09/20/16 04:30 98.1 75 18 115/80 97 09/20/16 00:15 97.7 76 17 118/80 98 09/19/16 20:40 97.8 82 18 120/83 97 09/19/16 16:56 97.2 16 16 107/66 97 09/19/16 13:14 97.9 76 16 115/72 96 09/20/16 07:00 Intake Total 1450 ml Balance 1450 ml (Lorraine Mcgowan) Review of Systems/Exam Exam Mr Scott is alert and oriented to time, place and person. No apparent distress. Cranial nerve examination: pupils equal, round and reactive to light. Extra- ocular movements are intact. Facial motor are normal and symmetrical. Neck: soft, supple Wound is healing well, no evidence of infection. Motor: moves both upper and lower extremities symmetrically Sensory examination is intact to light touch in both the upper and lower extremities. bilateral plantar flexion response. (Lorraine Mcgowan) Medications Current Medications Current Medications Medications (Trade) Dose Ordered Sig/Sandrine Route PRN Reason Start Time Stop Time Status Last Admin Dose Admin Acetaminophen (Tylenol) 650 mg Q6H PRN PO PAIN 1-2 AND/OR FEVER >101F 09/08/16 19:30 09/19/16 20:54 Miscellaneous Information 1 Q361D XX 09/08/16 19:30 Senna/Docusate Sodium (Viridiana-Colace) 1 tab BID PO 09/08/16 21:00 09/19/16 20:54 Magnesium Hydroxide (Milk Of Magnesia Liq) 30 ml Q12H PRN PO MILD - MODERATE CONSTIPATION 09/08/16 19:30 Bisacodyl (Dulcolax Supp) 10 mg DAILY PRN RECTAL SEVERE CONSITIPATION 09/08/16 19:30 Lactulose (Lactulose Liq) 30 ml DAILY PRN PO SEVERE CONSITIPATION 09/08/16 19:30 Nitroglycerin (Nitroglycerin 2% Oint) 2 inch Q6HR PRN TOPICAL SBP>160, DBP>90 09/08/16 19:30 09/08/16 22:38 Dextrose (D50w (Vial) Inj) 50 ml UNSCH PRN IV HYPOGLYCEMIA-SEE COMMENTS 09/08/16 19:45 Glucagon (Glucagon Inj) 1 mg UNSCH PRN OTHER HYPOGLYCEMIA-SEE COMMENTS 09/08/16 19:45 Enalaprilat (Vasotec Inj) 1.25 mg Q6H PRN IV PUSH SBP>160, DBP>90 09/08/16 23:30 09/13/16 05:13 Clonidine (Catapres) 0.1 mg Q6H PRN PO SBP>160, DBP>90, HR>65 09/08/16 23:30 09/13/16 17:29 Lisinopril (Prinivil) 20 mg DAILY PO 09/10/16 09:00 09/19/16 08:24 IV Flush (NS Flush) 2 ml UNSCH PRN IVF FLUSH AFTER USING IV ACCESS 09/10/16 10:00 IV Flush (NS Flush) 2 ml BID IVF 09/10/16 21:00 09/19/16 20:55 Docusate Sodium (Colace) 100 mg BID PO 09/10/16 21:00 09/19/16 20:54 Pantoprazole Sodium (Protonix) 40 mg DAILY PO 09/11/16 09:00 09/19/16 08:25 Ondansetron HCl (Zofran Inj) 4 mg Q6H PRN IV NAUSEA OR VOMITING 09/10/16 10:00 Acetaminophen/ Hydrocodone Bitart ([place] 10-325 Mg) 1 tab Q4H PRN PO PAIN SCALE 1 TO 5 09/10/16 10:00 09/18/16 08:58 Acetaminophen/ Hydrocodone Bitart ([place] 10-325 Mg) 2 tab Q4H PRN PO PAIN SCALE 6 TO 10 09/10/16 10:00 09/17/16 04:48 Amlodipine Besylate (Norvasc) 10 mg DAILY PO 09/12/16 08:00 09/19/16 08:24 Hydrochlorothiazide (Hydrodiuril) 25 mg DAILY PO 09/12/16 09:00 09/19/16 08:24 Levetriacetam (Keppra) 500 mg Q12HR PO 09/15/16 21:00 09/19/16 20:54 Polyethylene Glycol (Miralax) 17 gm DAILY PO 09/16/16 10:30 09/19/16 08:23 Sennosides (Senokot) 17.2 mg DAILY PO 09/18/16 13:00 09/19/16 08:24 (Lorraine Mcgowan) Medical Decision Making MDM Remarks 50 year old male with 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, most likely colloid cyst, final pathology reports no malignancy s/p right craniotomy with resection of intraventricular mass 09/10/16, POD 10 increasing headaches, stable CT Brain today with possible slight increased ventricle size compared to 09/14 f/u CT Head 09/20: stable post-op changes, no evidence of worsening hydrocephalus (Lorraine Mcgowan) Plan Plan Remarks follow up CT Head today reviewed, stable, no evidence of worsening hydrocephalus , clear to dc home from NRS standpoint, f/u office in 2 days for staple removal (Lorraine Mcgowan) Attending Statement The exam, history, and the medical decision-making described in the above note were completed with the assistance of the mid-level provider. I reviewed and agree with the findings presented. I attest that I had a [id number] encounter with the patient on the same day, and personally performed and documented my assessment and findings in the medical record. (Dave Germain MD) Lorraine Mcgowan Sep 20, 2016 11:14 Dave Germain MD Sep 20, 2016 12:37
--- NOTE | 2016-09-20 11:19 | HHI.PR ---
Subjective Remarks The patient still has a 3 out of 10 headache. He went for his CAT scan this morning. He says he is visiting from [place]. Once he is discharged from the hospital he'll be staying with a friend. Objective Vitals Vital Signs Date Time Temp Pulse Resp B/P Pulse Ox O2 Delivery O2 Flow Rate FiO2 09/20/16 08:00 97.5 81 16 110/69 95 09/20/16 04:30 98.1 75 18 115/80 97 09/20/16 00:15 97.7 76 17 118/80 98 09/19/16 20:40 97.8 82 18 120/83 97 09/19/16 16:56 97.2 16 16 107/66 97 09/19/16 13:14 97.9 76 16 115/72 96 I/O 09/19/16 09/19/16 09/19/16 09/20/16 09/20/16 09/20/16 07:00 15:00 23:00 07:00 15:00 23:00 Intake Total 700 ml 750 ml Balance 700 ml 750 ml Intake Oral 700 ml 750 ml # Voids 2 4 2 # Bowel Movements 0 0 0 Imaging Last Impressions Head CT 09/20/16 0800 Signed Impressions: Service Date/Time: Tuesday, September 20, 2016 10:29 - CONCLUSION: 1. Evolution of postoperative changes following right parietal craniotomy and removal of patient's colloid cyst with interval removal right frontal ventriculostomy catheter. Slightly increased blood products in the third ventricle in comparison to 09/16/2016 with appearance similar to . Stable ventricular size. Trell Alicea MD Chest X-Ray 09/10/16 0000 Signed Impressions: Service Date/Time: Saturday, September 10, 2016 13:10 - CONCLUSION: 1. Right central line in good position. No pneumothorax. 2. The lungs are grossly clear. Roger Pratt MD Brain MRI 09/09/16 0000 Signed Impressions: Service Date/Time: September 15:09 - CONCLUSION: There is a bilobed mass is centered at the foramen of Frausto measuring up to 3.1 cm. 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 These findings were discussed with Dr. Germain. Jori Franklin MD Objective Remarks GENERAL: Resting in bed, in no acute distress SKIN: Warm and dry. No rash HEAD: Atraumatic. Normocephalic. EYES: Pupils equal and round about 3-4 mm bilaterally and reactive. No scleral icterus. No injection or drainage. ENT: No nasal bleeding or discharge. Mucous membranes pink and moist. NECK: Trachea midline. No JVD. CARDIOVASCULAR: Rate a cardiac, RRR. S1, S2 no S4. Without murmur RESPIRATORY: Clear to auscultation. Breath sounds equal bilaterally. GASTROINTESTINAL: Abdomen soft, non-tender, nondistended. Hepatic and splenic margins not palpable. Decreased bowel sounds. MUSCULOSKELETAL: No edema, warm bilaterally. NEUROLOGICAL: Awake and alert. No obvious cranial nerve deficits. Motor grossly within normal limits. Five out of 5 muscle strength in the arms and legs. No pronator drift. Normal speech. PSYCHIATRIC: Appropriate mood and affect; insight and judgment normal. Medications and IVs Current Medications Medications (Trade) Dose Ordered Sig/Sandrine Route Start Time Stop Time Status Last Admin (Tylenol) 650 mg Q6H PRN PO 09/08/16 19:30 09/19/16 20:54 Miscellaneous Information 1 Q361D XX 09/08/16 19:30 (Viridiana-Colace) 1 tab BID PO 09/08/16 21:00 09/19/16 20:54 (Milk Of Magnesia Liq) 30 ml Q12H PRN PO 09/08/16 19:30 (Dulcolax Supp) 10 mg DAILY PRN RECTAL 09/08/16 19:30 (Lactulose Liq) 30 ml DAILY PRN PO 09/08/16 19:30 (Nitroglycerin 2% Oint) 2 inch Q6HR PRN TOPICAL 09/08/16 19:30 09/08/16 22:38 (D50w (Vial) Inj) 50 ml UNSCH PRN IV 09/08/16 19:45 (Glucagon Inj) 1 mg UNSCH PRN OTHER 09/08/16 19:45 (Vasotec Inj) 1.25 mg Q6H PRN IV PUSH 09/08/16 23:30 09/13/16 05:13 (Catapres) 0.1 mg Q6H PRN PO 09/08/16 23:30 09/13/16 17:29 (Prinivil) 20 mg DAILY PO 09/10/16 09:00 09/19/16 08:24 (NS Flush) 2 ml UNSCH PRN IVF 09/10/16 10:00 (NS Flush) 2 ml BID IVF 09/10/16 21:00 09/19/16 20:55 (Colace) 100 mg BID PO 09/10/16 21:00 09/19/16 20:54 (Protonix) 40 mg DAILY PO 09/11/16 09:00 09/19/16 08:25 (Zofran Inj) 4 mg Q6H PRN IV 09/10/16 10:00 ([place] 10-325 Mg) 1 tab Q4H PRN PO 09/10/16 10:00 09/18/16 08:58 ([place] 10-325 Mg) 2 tab Q4H PRN PO 09/10/16 10:00 09/17/16 04:48 (Norvasc) 10 mg DAILY PO 09/12/16 08:00 09/19/16 08:24 (Hydrodiuril) 25 mg DAILY PO 09/12/16 09:00 09/19/16 08:24 (Keppra) 500 mg Q12HR PO 09/15/16 21:00 09/19/16 20:54 (Miralax) 17 gm DAILY PO 09/16/16 10:30 09/19/16 08:23 (Senokot) 17.2 mg DAILY PO 09/18/16 13:00 09/19/16 08:24 A/P Problem List: (1) Brain mass ICD Code: G93.9 Status: Acute (2) Hypertension ICD Code: I10 Status: Acute (3) Tobacco abuse ICD Code: Z72.0 Status: Acute (4) Alcohol use ICD Code: Z78.9 Status: Acute Assessment and Plan 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 CT head 09/08 revealed a 2.3 x 1.8 cm hyperdense mass at the third ventricle causing obstruction of the lateral ventricles/hydronephrosis. There is also transependymal edema adjacent to both ventricles. Dr. Germain/neurosurgery following and patient underwent MRI brain which confirmed diagnosis. Started on Decadron secondary to brain edema 4 mg IV every 12 hours. S/p Stereotactic, image-guided craniotomy, resection of colloid cyst and ventriculostomy placement on 09/10. Ventriculostomy removed on 09/13. Repeat head CT 09/14: Interim removal of the right-sided ventriculostomy; No ventriculomegaly; Small blood collected in the third ventricle; Decreasing right frontal subdural hemorrhage and air; Minimal parenchymal hemorrhage in the right frontal lobe unchanged; About 1 mm of leftward midline shift, decreased. Pathology without evidence of malignancy. Continues to have headaches. Repeat head CT with questionable increase in ventricular size per NS. Still with chronic 05/[address] 09/20 with stable ventricles, evolution of postoperative changes. - pain management with a bowel regimen. - Placed on Keppra 500 mg twice a day seizure prophylaxis. - PT/ OT. - disposition per neurosurgery. Hypertension Blood pressure currently controlled, was elevated earlier on. - Continue lisinopril 20 mg daily, amlodipine 10 mg by mouth daily and HCTZ 25 mg by mouth daily. Hypernatremia Na level was 150. Resolved. - Monitor and replete electrolytes as needed. - encourage PO intake. Constipation Several days without a bowel movement. - standing Miralax added. Trial of lactulose, milk of magnesia. S/p Dulcolax supp. Fleets enema if needed. Resolved. Prophylaxis: SCD/ holding pharmacological prophylaxis in light of craniotomy till cleared by neurosurgery. Discharge Planning Awaiting NS clearance Problem Qualifiers (1) Hypertension: Qualified Code: I10 - Essential hypertension Jarek Zamora DO Sep 20, 2016 11:19
[2016-09-20] MEDS: POLYETHYLENE GLYCOL 17 GM PKG PO SCH (11:56)
[2016-09-20] MEDS: HYDROCHLOROTHIAZIDE 25 MG TAB PO SCH (11:56)
[2016-09-20] MEDS: DOCUSATE SODIUM 100 MG CAP PO SCH ×2 (11:57→21:00)
[2016-09-20] MEDS: DOCUSATE SODIUM 50 MG/SENNA 8.6 MG TAB PO SCH ×2 (11:57→21:00)
[2016-09-20] MEDS: PANTOPRAZOLE SOD 40 MG DELAYED RELEASE TAB PO SCH (11:57)
[2016-09-20] MEDS: LISINOPRIL 20 MG TAB PO SCH (11:57)
[2016-09-20] MEDS: SENNOSIDES 8.6 MG TAB PO SCH (11:57)
[2016-09-20] MEDS: levETIRAcetam 500 MG TAB PO SCH ×2 (11:57→21:00)
[2016-09-20 12:09] VITALS: BP 119/79; PULSE 74; RESP 16; TEMP 97.1; O2SAT 98
[2016-09-20] MEDS: ACETAMINOPHEN 325 MG TAB PO PRN (12:09)
[2016-09-20] MEDS ORDERED: HYDR-3583 PO (14:14)
[2016-09-20] MEDS ORDERED: AMLO10 PO (14:14)
[2016-09-20] MEDS ORDERED: LEVE500 PO (14:14)
[2016-09-20] MEDS ORDERED: LISI-515 PO (14:14)
[2016-09-20] MEDS ORDERED: NORC5TAB PO (14:17)
--- NOTE | 2016-09-20 14:17 | HHI.DCPOC ---
Discharge Care Plan Diagnosis: (1) Brain mass (2) Hypertension (3) Tobacco abuse Goals to Promote Your Health * To prevent worsening of your condition and complications * To maintain your health at the optimal level Directions to Meet Your Goals Take your medications as prescribed Follow your dietary instruction Follow activity as directed Keep your appointments as scheduled Take your immunizations and boosters as scheduled If your symptoms worsen call your PCP, if no PCP go to Urgent Care Center or Emergency Room Smoking is Dangerous to Your Health. Avoid second hand smoke Call the 24-hour hour crisis hotline for domestic abuse at Jarek Zamora DO Sep 20, 2016 14:16
--- NOTE | 2016-09-20 14:26 | HHI.DS ---
Discharge Summary Admission Date Sep 08, 2016 at 19:07 Discharge Date: Sep 20, 2016 Admitting Diagnosis Intracranial mass (1) Brain mass ICD Code: G93.9 Diagnosis: Principal (2) Hypertension ICD Code: I10 Diagnosis: Principal (3) Tobacco abuse ICD Code: Z72.0 Diagnosis: Principal (4) Alcohol use ICD Code: Z78.9 Diagnosis: Principal Procedures See hospital course Brief History - From Admission This is a 50-year-old [place] male. Date of admission 09/08/2016. Past include hypertension alcohol use and tobacco use. Patient presents to [facility] with a 3-4 day history of headaches described as bilateral frontal 6 out of 10 described as throbbing. Not associated with photophobia or vision changes. Patient is taking Tylenol without relief. He's also been having gait and balance disorder not favoring either side. Denies any falls, striking his head or syncope. When patient. [facility] of soon have an elevated systolic blood pressure 204. CT head revealed 2.3 x 1.9 cm hyperdense mass the third ventricle obstructing lateral ventricles. There is also transependymal edema adjacent to both ventricles. Dr. Germain/neurosurgery was notified and recommended ICU admission with consultation. We are asked to admit. At the present time, patient is currently hemodynamically stable. Besides gait imbalance disorder which was not specifically evaluated no cranial nerve, strength or sensation deficits noted. Imaging Last Impressions Head CT 09/20/16 0800 Signed Impressions: Service Date/Time: Tuesday, September 20, 2016 10:29 - CONCLUSION: 1. Evolution of postoperative changes following right parietal craniotomy and removal of patient's colloid cyst with interval removal right frontal ventriculostomy catheter. Slightly increased blood products in the third ventricle in comparison to 09/16/2016 with appearance similar to . Stable ventricular size. Trell Alicea MD Chest X-Ray 09/10/16 0000 Signed Impressions: Service Date/Time: Saturday, September 10, 2016 13:10 - CONCLUSION: 1. Right central line in good position. No pneumothorax. 2. The lungs are grossly clear. Roger J. Siragusa, MD Brain MRI 09/09/16 0000 Signed Impressions: Service Date/Time: September 15:09 - CONCLUSION: There is a bilobed mass is centered at the foramen of [place]usto measuring up to 3.1 cm. 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 These findings were discussed with Dr. Germain. Jori Franklin MD PE at Discharge GENERAL: Resting in bed, in no acute distress SKIN: Warm and dry. No rash HEAD: Atraumatic. Normocephalic. EYES: Pupils equal and round about 3-4 mm bilaterally and reactive. No scleral icterus. No injection or drainage. ENT: No nasal bleeding or discharge. Mucous membranes pink and moist. NECK: Trachea midline. No JVD. CARDIOVASCULAR: Rate a cardiac, RRR. S1, S2 no S4. Without murmur RESPIRATORY: Clear to auscultation. Breath sounds equal bilaterally. GASTROINTESTINAL: Abdomen soft, non-tender, nondistended. Hepatic and splenic margins not palpable. Decreased bowel sounds. MUSCULOSKELETAL: No edema, warm bilaterally. NEUROLOGICAL: Awake and alert. No obvious cranial nerve deficits. Motor grossly within normal limits. Five out of 5 muscle strength in the arms and legs. No pronator drift. Normal speech. PSYCHIATRIC: Appropriate mood and affect; insight and judgment normal. 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 CT head 09/08 revealed a 2.3 x 1.8 cm hyperdense mass at the third ventricle causing obstruction of the lateral ventricles/hydronephrosis. There is also transependymal edema adjacent to both ventricles. Dr. Germain/neurosurgery following and patient underwent MRI brain which confirmed diagnosis. Started on Decadron secondary to brain edema 4 mg IV every 12 hours. S/p Stereotactic, image-guided craniotomy, resection of colloid cyst and ventriculostomy placement on 09/10. Ventriculostomy removed on 09/13. Repeat head CT 09/14: Interim removal of the right-sided ventriculostomy; No ventriculomegaly; Small blood collected in the third ventricle; Decreasing right frontal subdural hemorrhage and air; Minimal parenchymal hemorrhage in the right frontal lobe unchanged; About 1 mm of leftward midline shift, decreased. Pathology without evidence of malignancy. Continues to have headaches. Repeat head CT with questionable increase in ventricular size per NS. Still with chronic 3/[address] 09/20 with stable ventricles, evolution of postoperative changes. The pt was cleared for discharge by neurosurgery. He received pain management with a bowel regimen. He was placed on Keppra 500 mg twice a day for seizure prophylaxis. He worked with PT/ OT. He will follow up with neurosurgery on Tuesday for staple removal. Hypertension The pt was started on several medications. Blood pressure is currently well controlled. He will continue lisinopril 20 mg daily and amlodipine 10 mg daily. HCTZ 25 mg daily will be discontinued as blood pressure can be borderline low at times. The pt will need to follow up with a PCP. Pt Condition on Discharge: Stable Discharge Disposition: Discharge Home Discharge Time: > 30 minutes Discharge Instructions DIET: Follow Instructions for: Heart Healthy Diet Speech Therapy-Diet Recommends: Regular Activities you can perform: Weight Bearing as Mirela Follow up Referrals: Neurosurgery - 09/22/16 @ Neurosurgical - Dr Germain with Lorraine Mcgowan PCP Follow-up - 1 Week New Medications: Hydrocodone-Acetaminophen (Evergreen) 5-325 mg Tab 1 TAB PO Q6H PRN PAIN #20 Ref 0 TAB Amlodipine (Norvasc) 10 Mg Tab 10 MG PO DAILY Blood Pressure Management #30 TAB Levetiracetam (Keppra) 500 Mg Tab 500 MG PO Q12HR Seizure Control #30 TAB Lisinopril (Lisinopril) 20 Mg Tab 20 MG PO DAILY Blood Pressure Management #30 TAB Jarek Zamora DO Sep 20, 2016 14:26
[2016-09-20 17:25] VITALS: BP 112/71; PULSE 90; RESP 16; TEMP 97.1; O2SAT 94
[2016-09-20 20:23] VITALS: BP 125/75; PULSE 72; RESP 20; TEMP 96.3; O2SAT 99
== END 2016-09-20 22:58 | disposition home or self-care (01) | DRG 25 ==
LOC: NEPC 14:22 → NEDA 19:07 → N03A 22:07 → N05B 09-14 18:51
PROVIDERS: ADMIT Hospitalist; ATTEND Hospitalist
PROC: 009600Z Drainage of Cerebral Ventricle with Drainage Device, Open Approach (ICD-10-PCS; 2016-09-10)
PROC: 00B60ZZ Excision of Cerebral Ventricle, Open Approach (ICD-10-PCS; principal; 2016-09-10 08:16)
DX: G93.0 Cerebral cysts (principal); G93.6 Cerebral edema; G91.1 Obstructive hydrocephalus; I10 Essential (primary) hypertension; K59.00 Constipation, unspecified; R20.9 Unspecified disturbances of skin sensation; F17.210 Nicotine dependence, cigarettes, uncomplicated; Z91.14 Patient's other noncompliance with medication regimen
CPT/HCPCS: 70450; 70553; 71010; 76937; 80048; 80053; 82948; 83735; 84100; 85025; 85027; 85610; 85730; 86850; 86900; 86901; 86920; 87641; 88304; 93005; 94150; 96374; A9579; C1713; C9113; C9248; J0131; J0360; J0690; J1100; J1580; J1953; J2150; J2250; J2270; J2405; J2710; J3010; J3370; J3411; J3480; J7030; J7040; J7050; J7120